=== PATIENT | female | born 1955 | race African-American/Black ===

== ENCOUNTER 2021-06-05 13:19 | Outpatient (REF) | payer OTHER, SELFPAY | END 2021-06-05 13:20 | disposition home or self-care (01) | LOC: HO.LAB 13:19 | PROVIDERS: Visit Provider Internal Medicine | DX: Z20.822 Contact with and (suspected) exposure to COVID-19 (principal) | CPT/HCPCS: C9803; U0003; U0005 ==

== ENCOUNTER 2021-06-13 04:35 | Inpatient (IN) | payer OTHER, SELFPAY ==
[2021-06-13] VITALS (10 sets, daily range): BP systolic 100–123; BP diastolic 54–68; PULSE 83–108; RESP 16–27; TEMP 37.2–38.1; O2SAT 88–94; BMI 40.1
--- NOTE | ~2021-06-13 | XR_ITS ---
EXAMINATION: XR CHEST CLINICAL INFORMATION: Covid. Hypoxemia. COMPARISON: 06/25/2021 TECHNIQUE: Frontal view of the chest was obtained. FINDINGS: Endotracheal tube terminates 4 cm above the gregorio. Enteric tube extends into the stomach. Right internal jugular central venous catheter terminates over the mid SVC. Left internal jugular central venous catheter terminates over the mid SVC. Cardiac leads overlie the chest. The lungs are well expanded. Diffuse bilateral airspace opacities are again noted, similar to prior. No pleural effusion or pneumothorax. The cardiomediastinal silhouette is unchanged. XR/XR chest 1V IMPRESSION: Endotracheal tube terminates 4 cm above the gregorio. Similar bilateral airspace opacities.
--- NOTE | ~2021-06-13 | XR_ITS ---
EXAMINATION: XR CHEST CLINICAL INFORMATION: Hypoxia. COMPARISON: 06/14/2021 portable chest, chest CTA dated 06/15/2021. TECHNIQUE: Frontal view of the chest was obtained. FINDINGS: Persistent bilateral patchy infiltrates are seen with mild interval decrease, especially in the lower lung millan. The heart and mediastinal structures are unremarkable. XR/XR chest 1V IMPRESSION: Mild interval improvement in bilateral patchy infiltrates. These remain nonspecific and could be cardiogenic however, an infectious/inflammatory process cannot be excluded. Correlate clinically.
--- NOTE | ~2021-06-13 | XR_ITS ---
EXAMINATION: XR CHEST CLINICAL INFORMATION: Hypoxia. COMPARISON: 06/23/2021 TECHNIQUE: Frontal view of the chest was obtained. FINDINGS: Endotracheal tube terminates 5 cm above the gregorio. Enteric tube extends into the stomach. Right and left internal jugular central venous catheters remain in place terminating over the mid SVC. Cardiac leads overlie the chest. The lungs are well expanded. Diffuse patchy bilateral airspace opacities are again noted. No significant pleural effusion. No pneumothorax. The cardiomediastinal silhouette is within normal limits. XR/XR chest 1V IMPRESSION: Endotracheal tube terminating 5 cm above the gregorio. Diffuse bilateral airspace opacities are similar to previous.
--- NOTE | ~2021-06-13 | XR_ITS ---
EXAMINATION: XR CHEST CLINICAL INFORMATION: Temperature spike COMPARISON: 06/24/2021 TECHNIQUE: Frontal view of the chest was obtained. FINDINGS: The endotracheal tube terminates 3 cm above the gregorio. Enteric tube extends into the stomach. Bilateral internal jugular central venous catheters terminate over the mid SVC. Cardiac leads overlie the chest. The lungs are well expanded. Bilateral airspace opacities are again noted with similar appearance to prior. No significant pleural effusion. No pneumothorax. The cardiomediastinal silhouette is within normal limits. No acute osseous abnormality. XR/XR chest 1V IMPRESSION: Endotracheal tube terminates 3 cm above the gregorio. Similar appearance of diffuse bilateral airspace opacities.
--- NOTE | ~2021-06-13 | XR_ITS ---
EXAMINATION: XR CHEST CLINICAL INFORMATION: Hypoxia. Covid. COMPARISON: 06/21/2021 TECHNIQUE: Frontal view of the chest was obtained. FINDINGS: The endotracheal tube terminates 4 cm above the gregorio. Enteric tube extends into the stomach. Cardiac leads overlie the chest. Right internal jugular central venous catheter terminates over the mid SVC. The lungs are well expanded. Patchy diffuse opacities are seen throughout both lungs. This is similar to prior. No pneumothorax. No pleural effusion. No pneumothorax. The cardiomediastinal silhouette is within normal limits. XR/XR chest 1V IMPRESSION: Endotracheal tube terminates 4 cm above the gregorio. Diffuse bilateral airspace opacities are similar to prior.
--- NOTE | ~2021-06-13 | XR_ITS ---
EXAMINATION: XR CHEST CLINICAL INFORMATION: New dialysis catheter. COMPARISON: Chest 06/22/2021 TECHNIQUE: Frontal view of the chest was obtained. FINDINGS: The lungs are hypoexpanded with bilateral patchy opacities consistent with infiltrates. Right jugular central catheter in mid SVC, enteric tube tip in the stomach and endotracheal tube 4.5 cm above the gregorio is stable. Heart size and pulmonary vascularity is normal. There is mild spondylosis of dorsal spine. No lytic process. XR/XR chest 1V IMPRESSION: Diffuse bilateral patchy airspace disease. Support lines and catheters are stable.
--- NOTE | ~2021-06-13 | XR_ITS ---
EXAMINATION: XR CHEST CLINICAL INFORMATION: Status post intubation. COMPARISON: 06/20/2021 portable chest. TECHNIQUE: Frontal view of the chest was obtained. FINDINGS: Endotracheal tube with tip terminating approximately 4 cm proximal to gregorio. Right internal jugular catheter with tip terminating in the superior vena cava. Nasogastric tube with tip not included on the study, but seen below the left hemidiaphragm. There has been mild interval increase in bilateral diffuse patchy infiltrates. The heart and mediastinal structures are unremarkable. XR/XR chest 1V IMPRESSION: 1. Endotracheal tube with tip approximately 4.0 cm proximal to gregorio. 2. Mild interval increase in bilateral diffuse patchy infiltrates.
--- NOTE | ~2021-06-13 | CT_ITS ---
EXAMINATION: CT ANGIOGRAM OF THE CHEST WITH AND WITHOUT CONTRAST (CT PULMONARY ANGIOGRAM FOR PE) CLINICAL INFORMATION: Reason for Exam Hypoxic resp Failure Covid COMPARISON: Chest x-ray 06/14/2021 TECHNIQUE: Prior to contrast administration, noncontrast localization images were obtained. Subsequently, multidetector volumetric imaging was performed from the thoracic inlet to below the diaphragms following the administration of 65 mL Omnipaque 350 intravenous contrast. No contrast reaction reported Sagittal, coronal, and MIP oblique sagittal reformatted images were obtained on the CT workstation, uploaded to PACS, and reviewed. This CT examination was performed using dose optimization techniques as appropriate, variously including the following: *Automated exposure control *Adjustment of mA and/or kV according to patient size (this includes techniques or standardized protocols for targeted exams where dose is matched to indication/reason for exam; i.e. extremities or head) *Use of iterative reconstruction technique Total exam dose-length product 265 mGy-cm FINDINGS: QUALITY OF STUDY/CONTRAST BOLUS: Suboptimal. PULMONARY ARTERIES: No definite central or segmental pulmonary emboli. Limited evaluation of the distal segmental and subsegmental emboli due to respiratory motion artifact. THORACIC AORTA: No aneurysm or dissection. 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 LUNG: There is extensive groundglass opacity and denser consolidation bilaterally; this involves the entire lung parenchyma with a few scattered patchy regions of sparing of the lung apices and bases. PLEURA: No pleural effusion or pneumothorax. MEDIASTINUM: The visualized thyroid gland is unremarkable. No discrete mediastinal lymphadenopathy is seen. Cardiac size is within normal limits; no pericardial effusion. No evidence of septal bowing or right heart strain. CHEST WALL/AXILLA: No axillary or internal mammary lymphadenopathy. OSSEOUS STRUCTURES: Degenerative changes are noted in the spine. UPPER ABDOMEN: Unremarkable. No reflux of contrast into the hepatic veins to suggest elevated right heart pressures. CT/CT angio chest PE protocol IMPRESSION: 1. No pulmonary embolus identified, though assessment of the distal vasculature is significantly limited. 2. Extensive groundglass opacity and consolidations bilaterally, which may be secondary to infection, edema, or ARDS. VTE: negative
--- NOTE | ~2021-06-13 | XR_ITS ---
EXAMINATION: XR CHEST CLINICAL INFORMATION: SOB. COMPARISON: None TECHNIQUE: Frontal view of the chest was obtained. FINDINGS: The lungs are hypoexpanded with patchy opacities seen scattered throughout both lungs. Heart size and vascularity is normal. No gross bony abnormality seen. XR/XR chest 1V IMPRESSION: Bilateral patchy infiltrates.
--- NOTE | ~2021-06-13 | XR_ITS ---
EXAMINATION: XR CHEST CLINICAL INFORMATION: Shortness of breath COMPARISON: None TECHNIQUE: Frontal view of the chest was obtained. FINDINGS: The lungs are hypoinflated. There are patchy regions of opacity in the mid to lower lungs. No evidence of pneumothorax or significant pleural effusion. The cardiomediastinal contour is unremarkable. No acute osseous findings are seen. XR/XR chest 1V IMPRESSION: Low lung volumes with patchy regions of bibasilar opacity. While some of this may be secondary to atelectasis, this can also be seen with multifocal pneumonia.
--- NOTE | 2021-06-13 04:45 | PC.NURSE ---
during triage pt noted to be short of breath/increased work of breathing and expiratory wheezing. sitting on edge of bed. 02 sat 91% on room air. provider notified respiratory paged to bedside.
[2021-06-13] MEDS: Acetaminophen 325 MG TABLET PO (05:12)
[2021-06-13] MEDS: Acetaminophen 325 MG TABLET 650 MG PO ×2 (05:12→21:21)
[2021-06-13] MEDS: Albuterol Sulfate (0.083%) 2.5 MG/3 ML VIAL.NEB 5 MG INHALE (05:12)
--- NOTE | 2021-06-13 05:15 | PC.NURSE ---
respiratory at bedside for nebulizer treatment pt placed on 2L NC by RT 02 sat 94% on 2L NC
[2021-06-13 05:16] LABS: COVID-19 Test Positive (Negative); IDNOW Serial# 9DD0AD1C
--- NOTE | 2021-06-13 06:32 | ECG_ITS ---
Test Reason : UPPER RESP Blood Pressure : / mmHG Vent. Rate : 095 BPM Atrial Rate : 095 BPM P-R Int : 142 ms QRS Dur : 096 ms QT Int : 346 ms P-R-T Axes : 042 019 012 degrees QTc Int : 434 ms Normal sinus rhythm Possible Left atrial enlargement Borderline ECG No previous ECGs available Referred By: Miguel Ro Electronically Signed By:DIYA PAGAN
--- NOTE | 2021-06-13 06:36 | ED.GENADULT ---
HPI - General Adult General Chief complaint: Upper Respiratory Symptoms Stated complaint: Covid like Time Seen by Provider: 06/13/21 05:05 Source: patient Mode of arrival: ambulatory Limitations: no limitations History of Present Illness HPI narrative: 66-year-old female who presents emergency department for evaluation of fever, chills, cough, headache, fatigue, diarrhea, body aches x1 week. The patient states that she was not vaccinated against COVID-19. She states that her 15-year-old granddaughter is positive for COVID-19. Patient states that she has been sick for about 1 week with her symptoms getting worse over the past 1-2 days. She states that she has severe dyspnea on exertion and can only walk about 10 ft before getting fatigued and winded. She states that she has a cough which is productive and occasionally she notices dark streaks in her sputum which she believes is blood. She states that she has had fever daily and shaking chills. She has had multiple episodes of loose diarrheal stool per day. She states that she has diffuse body aches. She feels fatigued and is sleeping more than usual. She states that her symptoms got worse this morning therefore she came to emergency department for evaluation. Related Data Allergies Allergy/AdvReac Type Severity Reaction Status Date / Time No Known Allergies Allergy Verified 06/13/21 05:05 Review of Systems Review of Systems: Yes all other systems are reviewed and are negative [facility] Past Medical History [facility] Narrative: Past medical history: Diabetes mellitus, hypertension, diverticulitis. Past surgical history: Bilateral carpal tunnel release, cervical disc surgery with fusion. Social history she denies tobacco use, she states that she is a former smoker when she was very young has not smoked in many years. She denies alcohol use. She denies drug use. Social History Social History Advance Directives: No Advance Directives Information Provided: No Physical Exam Vital Signs: Vital Signs: Last Vital Signs Temp 100.6 F H 06/13/21 04:40 Pulse 93 06/13/21 07:51 Resp 26 H 06/13/21 07:51 BP 100/68 06/13/21 04:40 Pulse Ox 94 06/13/21 07:51 Body Mass Index 40.1 Const: Other: Very pleasant and cooperative female patient, she is able to answer all questions, she speaks in full sentences HENMT: Head: Yes normal to inspection, Yes normocephalic and Yes atraumatic Ears: external ears normal General nose exam: Normal external nose present Face and sinus: Yes normal facial exam Mouth: Normal oral and palatal mucosa present Throat: Yes posterior oropharynx normal Eyes: General: appearance normal, both eyes and all related structures Pupils: Equal, round and reactive pupils present Neck: Neck: Yes normal visual inspection, Yes no lymphadenopathy, Yes trachea midline and Yes supple Chest: Chest palpation & inspection: normal inspection of the chest and normal palpation of entire chest wall Resp: Effort & Inspection: normal respiratory effort and able to speak in complete sentences Auscultation: rhonchi (Diffuse) and wheezes (Diffuse) Cardio: Rate: tachycardic Rhythm: regular rhythm Heart sounds: S1 normal heart sound present, S2 normal heart sound present and no murmurs GI: Inspection: Yes obesity Palpation (GI): Soft to palpation, nontender and no guarding Auscultation: normal bowel sounds : General: Yes no CVA tenderness Back/Spine/Pelvis: Back: no CVA tenderness Skin: General skin exam: no rashes or lesions noted Neuro: Cranial nerves: Yes CN's II-XII intact bilaterally and Yes Equal, round and reactive pupils present Cognition (Neuro): normal cognition Motor exam (neuro): 5/5 motor strength present throughout Extrem: General: Yes normal to inspection Psych: Appearance: grossly normal Speech and movement: Normal speech and movement present Affect: normal affect Attitude: cooperative Thought process: Normal thought process present Thought content: Normal thought content present Course Course Course Narrative: 66-year-old female who presents emergency department for evaluation 1 week viral-like symptoms which include with had fever, chills, chest pain, shortness of breath, dyspnea on exertion, diarrhea body aches and headache. The patient's granddaughter is positive for COVID-19 and the patient has had significant exposure to her granddaughter. The patient has not been vaccinated for COVID-19. Vital signs revealed that the patient was febrile with a temperature of a 100.6?. She is tachycardic with a pulse of 108. The patient's O2 saturation on room air was 88% and on 2 L her O2 saturation went up to 92-94%. The patient's COVID-19 test is positive. Patient's chest x-ray is consistent with multi lobar interstitial pneumonia. I did order a laboratory evaluation to include CBC, CMP, lipase, lactic acid, blood cultures x2, LDH, CRP, procalcitonin , D-dimer, procalcitonin, troponin and urinalysis. Blood cultures x2 will be obtained. The patient was ordered to get dexamethasone 6 mg IV. She is also ordered to get ceftriaxone 1 g IV and azithromycin 500 mg IV. 0815: Laboratory evaluation: CBC was normal. D-dimer was elevated at 524. Comprehensive metabolic panel revealed a low bicarb of 18, elevated BUN and creatinine of 29 and 2.0, elevated glucose of 239, elevated ferritin 1233, elevated AST and ALT of 4837, elevated LDH of 295, elevated CRP of 8.2 . I did discuss the patient's presentation with the covering hospitalist, Dr. Marah Cabrales and the patient will be admitted to the hospitalist service. We did discuss ordering a CT pulmonary angiogram PE protocol to rule out pulmonary embolism and to evaluate the extent of the patient's pneumonia. Medical Decision Making Lab Data Result diagrams: 06/13/21 07:05 06/13/21 07:05 Labs: Lab Results 06/13/21 06/13/21 06/13/21 Range/Units 04:59 07:05 07:05 WBC 4.9 (4.8-10.8) X10*3/uL RBC 5.11 (4.20-5.50) X10*6/uL Hgb 13.5 (12.0-16.0) g/dl Hct 39.9 (37-47) % MCV 78.1 L (80-98) fL MCH 26.4 L (27.0-33.0) pg MCHC 33.8 (31.0-35.0) g/dl RDW 15.2 (11.0-16.0) % Plt Count 169 (160-400) X10*3/uL MPV 9.6 (9.4-12.3) fL Immature Gran % (Auto) 0.4 (0.0-0.4) % Neut % (Auto) 80.5 H (45-73) % Lymph % (Auto) 13.8 L (20-40) % [place] % (Auto) 5.3 (2-11) % Eos % (Auto) 0.0 (0-4) % Baso % (Auto) 0.0 (0-2) % Lymph # (Auto) 0.7 L (1.2-4.9) X10*3/uL [place] # (Auto) 0.3 (0.1-1.2) X10*3/uL Eos # (Auto) 0.0 (0.0-0.4) X10*3/uL Baso # (Auto) 0.0 (0.0-0.2) X10*3/uL Abs Immat Gran (auto) 0.02 (0.00-0.03) X10*3/uL Absolute Neuts (auto) 4.0 (2.0-8.3) X10*3/uL Absolute Nucleated RBC 0.000 (0.0-0.012) X10*3/uL Nucleated RBC % (auto) 0.0 (0.0-0.2) /100WBC D-Dimer NG/ML Sodium 137 (135-145) mmol/L Potassium 3.4 (3.3-5.1) mmol/L Chloride 104 (96-108) mmol/L Carbon Dioxide 18 L (22-29) mmol/L Anion Gap 18 (12-20) BUN 29 H (9-16) mg/dL Creatinine 2.01 H (0.5-1.4) mg/dL Estim Creat Clear Calc 38.2 Estimated GFR 25 Random Glucose 239 H (60-115) mg/dL Lactic Acid (0.5-2.0) mmol/L Calcium 8.8 (8.4-10.2) mg/dL Ferritin 1233 H (10-250) ng/mL Total Bilirubin 0.5 (0.0-1.0) mg/dL AST 48 H (5-31) U/L ALT 37 H (0-31) U/L Alkaline Phosphatase 66 (39-117) U/L Lactate Dehydrogenase 295 H (122-220) U/L Troponin I High Sens (<3.5-17.0) ng/L C-Reactive Protein 8.28 H (< or = 0.50) mg/dL B-Natriuretic Peptide (<100) pg/mL Total Protein 7.8 (6.5-8.0) g/dL Albumin 4.3 (3.5-5.0) g/dL Lipase 66 (8-78) U/L COVID-19 ([facility]) Positive A (Negative) COVID-19 Clin Com See Note 06/13/21 06/13/21 06/13/21 Range/Units 07:05 07:05 07:05 WBC (4.8-10.8) X10*3/uL RBC (4.20-5.50) X10*6/uL Hgb (12.0-16.0) g/dl Hct (37-47) % MCV (80-98) fL MCH (27.0-33.0) pg MCHC (31.0-35.0) g/dl RDW (11.0-16.0) % Plt Count (160-400) X10*3/uL MPV (9.4-12.3) fL Immature Gran % (Auto) (0.0-0.4) % Neut % (Auto) (45-73) % Lymph % (Auto) (20-40) % [place] % (Auto) (2-11) % Eos % (Auto) (0-4) % Baso % (Auto) (0-2) % Lymph # (Auto) (1.2-4.9) X10*3/uL [place] # (Auto) (0.1-1.2) X10*3/uL Eos # (Auto) (0.0-0.4) X10*3/uL Baso # (Auto) (0.0-0.2) X10*3/uL Abs Immat Gran (auto) (0.00-0.03) X10*3/uL Absolute Neuts (auto) (2.0-8.3) X10*3/uL Absolute Nucleated RBC (0.0-0.012) X10*3/uL Nucleated RBC % (auto) (0.0-0.2) /100WBC D-Dimer 524 NG/ML Sodium (135-145) mmol/L Potassium (3.3-5.1) mmol/L Chloride (96-108) mmol/L Carbon Dioxide (22-29) mmol/L Anion Gap (12-20) BUN (9-16) mg/dL Creatinine (0.5-1.4) mg/dL Estim Creat Clear Calc Estimated GFR Random Glucose (60-115) mg/dL Lactic Acid 1.2 (0.5-2.0) mmol/L Calcium (8.4-10.2) mg/dL Ferritin (10-250) ng/mL Total Bilirubin (0.0-1.0) mg/dL AST (5-31) U/L ALT (0-31) U/L Alkaline Phosphatase (39-117) U/L Lactate Dehydrogenase (122-220) U/L Troponin I High Sens 9.7 (<3.5-17.0) ng/L C-Reactive Protein (< or = 0.50) mg/dL B-Natriuretic Peptide < 10 (<100) pg/mL Total Protein (6.5-8.0) g/dL Albumin (3.5-5.0) g/dL Lipase (8-78) U/L COVID-19 ([facility]) (Negative) COVID-19 Clin Com Critical Care Time Critical Care Time Critical Care Time: Yes Total Critical Care Time: 50 Attestation: Critical Care: The patient was critically ill with a high probability of imminent or life threatening deterioration. I spent greater than 30 minutes of discontinuous time evaluating the patient,delivering critical care at the bedside, discussing and evaluating pertinent data with consultants. Critical care time does not include time spent performing separately billable procedures or teaching. Total time spent performing critical care was 50 minutes. Discharge Plan Discharge Clinical Impression: Pneumonia due to 2019 novel coronavirus, Hypoxia Patient Disposition: Admitted As Inpatient
[2021-06-13 07:11] LABS: MANUAL DIFF FLAG NO
[2021-06-13] MEDS: 0.9 % Sodium Chloride 1,000 ML 999 ML IV (07:11)
[2021-06-13 07:12] LABS: Hematocrit 39.9 % (37-47); Hemoglobin 13.5 g/dl (12.0-16.0); Imm Gran Abs Auto 0.02 X10*3/uL (0.00-0.03); Imm Gran Pct Auto 0.4 % (0.0-0.4); Lymphocytes Absolute Auto 0.7 X10*3/uL (1.2-4.9); Lymphocytes Percent Auto 13.8 % (20-40); Mean Corpuscular HGB Conc 33.8 g/dl (31.0-35.0); Mean Corpuscular Hemoglobin 26.4 pg (27.0-33.0); Mean Corpuscular Volume 78.1 fL (80-98); Mean Platelet Volume 9.6 fL (9.4-12.3); Monocytes Absolute Auto 0.3 X10*3/uL (0.1-1.2); Monocytes Percent Auto 5.3 % (2-11); Neutrophils Percent Auto 80.5 % (45-73); Platelet Count 169 X10*3/uL (160-400); Red Blood Count 5.11 X10*6/uL (4.20-5.50); Red Cell Distribution Width 15.2 % (11.0-16.0); White Blood Count 4.9 X10*3/uL (4.8-10.8)
[2021-06-13 07:23] LABS: Lactic Acid 1.2 mmol/L (0.5-2.0)
[2021-06-13 07:24] LABS: D Dimer 524 NG/ML
[2021-06-13 07:28] LABS: Alanine Aminotransferase 37 U/L (0-31); Albumin Level 4.3 g/dL (3.5-5.0); Alkaline Phosphatase 66 U/L (39-117); Anion Gap 18 (12-20); Aspartate Amino Transferase 48 U/L (5-31); Bilirubin Total 0.5 mg/dL (0.0-1.0); Blood Urea Nitrogen 29 mg/dL (9-16); C Reactive Protein 8.28 mg/dL (< or = 0.50); Calcium 8.8 mg/dL (8.4-10.2); Carbon Dioxide 18 mmol/L (22-29); Chloride 104 mmol/L (96-108); Creatinine Clr Calc Pharmacy 38.2; Estimated Glomerular Filt Rate 25; Glucose Random 239 mg/dL (60-115); Lactate Dehydrogenase 295 U/L (122-220); Lipase 66 U/L (8-78); Potassium 3.4 mmol/L (3.3-5.1); Sodium 137 mmol/L (135-145); Total Protein 7.8 g/dL (6.5-8.0)
[2021-06-13 07:35] LABS: B Type Natriuretic Peptide < 10 pg/mL (<100); Troponin-I High Sensitivity 9.7 ng/L (<3.5-17.0)
[2021-06-13] MEDS: dexAMETHasone sod phosphate 4 MG/ML VIAL 6 MG IVPUSH (07:46)
[2021-06-13] MEDS: cefTRIAXone sodium 1 GM in 0.9 % Sodium Chloride 50 ML IV ×2 (07:46→17:52)
[2021-06-13 07:49] LABS: Ferritin 1233 ng/mL (10-250)
[2021-06-13] MEDS: Azithromycin 500 MG in 0.9 % Sodium Chloride 250 ML 125 MG IV (08:36)
[2021-06-13 09:04] LABS: Procalcitonin 0.36 ng/mL
--- NOTE | 2021-06-13 11:18 | PM.IMHP ---
History of Present Illness Date of Service: 06/13/21 [facility] Chief Complaint: Shortness of breath HPI narrative: 66-year-old female who presents emergency department for evaluation of fever, chills, cough, headache, fatigue, diarrhea, body aches x1 week.? The patient states that she was not vaccinated against COVID-19.? She states that her 15-year-old granddaughter is positive for COVID-19.? Patient states that she has been sick for about 1 week with her symptoms getting worse over the past 1-2 days.? She states that she has severe dyspnea on exertion and can only walk about 10 ft before getting fatigued and winded.? She states that she has a cough which is productive and occasionally she notices dark streaks in her sputum which she believes is blood.? She states that she has had fever daily and shaking chills.? She has had multiple episodes of loose diarrheal stool per day.? She states that she has diffuse body aches.? She feels fatigued and is sleeping more than usual.? She states that her symptoms got worse this morning therefore she came to emergency department for evaluation. Review of Systems Review of Systems: Gen: +fever Resp: +sob, + cough CV: no chest, no PATRICIO, no leg edema GI: No n/v, no abd pain Neuro: No confusion Yes all other systems are reviewed and are negative [facility] Medical History Diabetes HTN (hypertension) Family History Sister Diabetes Pertinent family history: see above HTN in fmaily Social History Household Members: Family Housing: House Patient Tobacco Use Status: Never used Tobacco Use of substances other than those prescribed or required for medical reasons: No Currently Displaying Signs/Symptoms of Drug Intoxication Withdrawal: No Have you been hit, kicked, punched, or otherwise hurt by someone within the past year? If so, by whom?: No Do you feel safe in your current relationship?: Yes Is there a partner from a previous relationship who is making you feel unsafe now?: No Advance Directives: No Advance Directives Information Provided: No Do you have thoughts of harming others: None Do you have a plan to hurt others: No Plan Recently lost weight without trying: No Eating poorly because of decreased appetite: No Nutrition Risks: No Nutritional Risk service: No Current occupational status: retired Manager[employer] Allergies Allergy/AdvReac Type Severity Reaction Status Date / Time No Known Allergies Allergy Verified 06/13/21 05:05 Active Medications: Current Medications Ceftriaxone Sodium 1 gm/ (Sodium Chloride) 50 mls @ 100 mls/hr IV Q12H BERNARD Last Admin: 06/13/21 07:46 Dose: 100 mls/hr Documented by: Pharmacy Consult (Consult Rx Perform Med Rec) 1 each MISCELLANE ONCE PRN PRN Reason: Consult order Home Medications Medication Instructions Recorded Confirmed Last Taken Type Januvia 100 mg PO DAILY 06/13/21 06/13/21 06/12/21 History glipizide 5 mg PO BID 06/13/21 06/13/21 06/12/21 History hydrochlorothiazide 25 mg PO DAILY 06/13/21 06/13/21 06/12/21 History methocarbamol 500 mg PO Q6-8H PRN 06/13/21 06/13/21 Unknown History omeprazole 20 mg PO DAILY 06/13/21 06/13/21 06/12/21 History rosuvastatin 10 mg PO DAILY 06/13/21 06/13/21 06/12/21 History Physical Exam Vital Signs and Narrative: Vital Signs: Last Vital Signs Temp 99.6 F 06/13/21 08:37 Pulse 90 06/13/21 08:37 Resp 27 H 06/13/21 08:37 BP 101/59 L 06/13/21 08:37 Pulse Ox 93 06/13/21 08:37 Body Mass Index 40.1 Constitutional Awake and Alert, No apparent distress HEENT--Anciteric Neck Supple, No lymphadenopathy Cardiovascular RRR, No M/R/G, S1 S2, No S3 S4, No pedal edema, Respiratory dimished breath sounds tiffani No respiratory distress, normal respiratory effort Gastrointestinal Non tender, Non-distended Skin No rash Neurological Alert & oriented x3 Psychological Appropriate affect Results Labs CBC and Chem 7: 06/19/21 05:46 06/19/21 05:46 Labs: Laboratory Results - last 24 hr 06/13/21 06/13/21 06/13/21 04:59 07:05 07:05 MCV MCH MCHC RDW Plt Count MPV Immature Gran % (Auto) Neut % (Auto) Lymph % (Auto) [place] % (Auto) Eos % (Auto) Baso % (Auto) Lymph # (Auto) [place] # (Auto) Eos # (Auto) Baso # (Auto) Abs Immat Gran (auto) Absolute Neuts (auto) Absolute Nucleated RBC Nucleated RBC % (auto) D-Dimer Anion Gap 18 Estim Creat Clear Calc 38.2 Estimated GFR 25 Random Glucose 239 H Lactic Acid Calcium 8.8 Ferritin 1233 H Total Bilirubin 0.5 AST 48 H ALT 37 H Alkaline Phosphatase 66 Lactate Dehydrogenase 295 H Troponin I High Sens C-Reactive Protein 8.28 H B-Natriuretic Peptide Total Protein 7.8 Albumin 4.3 Lipase 66 Procalcitonin 0.36 COVID-19 ([facility]) Positive A COVID-19 Clin Com See Note 06/13/21 06/13/21 06/13/21 07:05 07:05 07:05 MCV 78.1 L MCH 26.4 L MCHC 33.8 RDW 15.2 Plt Count 169 MPV 9.6 Immature Gran % (Auto) 0.4 Neut % (Auto) 80.5 H Lymph % (Auto) 13.8 L [place] % (Auto) 5.3 Eos % (Auto) 0.0 Baso % (Auto) 0.0 Lymph # (Auto) 0.7 L [place] # (Auto) 0.3 Eos # (Auto) 0.0 Baso # (Auto) 0.0 Abs Immat Gran (auto) 0.02 Absolute Neuts (auto) 4.0 Absolute Nucleated RBC 0.000 Nucleated RBC % (auto) 0.0 D-Dimer 524 Anion Gap Estim Creat Clear Calc Estimated GFR Random Glucose Lactic Acid 1.2 Calcium Ferritin Total Bilirubin AST ALT Alkaline Phosphatase Lactate Dehydrogenase Troponin I High Sens C-Reactive Protein B-Natriuretic Peptide Total Protein Albumin Lipase Procalcitonin COVID-19 ([facility]) COVID-19 Clin Com 06/13/21 07:05 MCV MCH MCHC RDW Plt Count MPV Immature Gran % (Auto) Neut % (Auto) Lymph % (Auto) [place] % (Auto) Eos % (Auto) Baso % (Auto) Lymph # (Auto) [place] # (Auto) Eos # (Auto) Baso # (Auto) Abs Immat Gran (auto) Absolute Neuts (auto) Absolute Nucleated RBC Nucleated RBC % (auto) D-Dimer Anion Gap Estim Creat Clear Calc Estimated GFR Random Glucose Lactic Acid Calcium Ferritin Total Bilirubin AST ALT Alkaline Phosphatase Lactate Dehydrogenase Troponin I High Sens 9.7 C-Reactive Protein B-Natriuretic Peptide < 10 Total Protein Albumin Lipase Procalcitonin COVID-19 ([facility]) COVID-19 Clin Com Imaging Radiologist's Impressions: Impressions Chest X-Ray 06/13/21 05:29 IMPRESSION: Low lung volumes with patchy regions of bibasilar opacity. While some of this may be secondary to atelectasis, this can also be seen with multifocal pneumonia. Assessment and Plan (1) Pneumonia due to 2019 novel coronavirus: Status: Acute (2) Hypoxia: Status: Acute (3) HTN (hypertension): Status: Acute (4) Diabetes: Status: Acute 66-year-old female morbidly obese with hypertension unclear whether she is taking any medication or not, diabetes a does not seem to be controlled. She is not vaccinated with covid. She presents with shortness of breath, cough and fever body aches, she has been exposed with covid from her children who got from school. She was hypoxic on presentation and is better with oxygen. She has tested positive for covid. 1/ Acute hypoxic respiratory failure due covid pneumnia, no sepsis -She is out of window for remdesevir and also LFTS are elevated -Treated with IV Dexamethasone -IV Doxy for fiew days -ID consult -oxguen with goal of O2 > 90% -Follow inflamatory markers (CRP, LDH, Ferritin,--all high) 1/Diabetes--uncontrolled, and it doesn't appear she's on med (not med in any pharmacy) -Add sliding scle insulin -Metformin 500 bid -Check A1C 3/ She says she has HTN but is no med and BP is within normal, monitor 4/ obesity obviously affecting above health issues, weight loss advised. 5/Elevated LFTs--likely from covid, follow, if not improving US 6/ renal failure Cr 2.01, no prior here (not record at [facility]), likely CKD rather KESHAV, will hydrate gently and repeat tomorrow. DVT prophylaxis with Xarelto Quality Stroke Does the patient have a stroke diagnosis?: No VTE Prior VTE?: No VTE Risk Level:: Medical - moderate - high VTE Device Contraindication: Treatment Not Indicated VTE Drug Contraindication: N/A - Med Ordered
[2021-06-13] MEDS: Famotidine 20 MG TABLET 40 MG PO ×2 (11:44→20:46)
[2021-06-13] MEDS: 0.9 % Sodium Chloride 1,000 ML 100 ML IVCONT (11:44)
[2021-06-13] MEDS: Albuterol Sulfate 90 MCG 8 GM INHALER 2 PUFF INHALE (11:59)
[2021-06-13] MEDS: guaiFENesin 100 MG/5 ML LIQUID PO ×2 (12:19→16:04)
[2021-06-13] MEDS: Rivaroxaban 10 MG TABLET PO (12:19)
[2021-06-13] MEDS: Doxycycline Hyclate 100 MG in 0.9 % Sodium Chloride 250 ML 166.67 MG IV ×2 (12:19→23:33)
[2021-06-13 12:22] LABS: Estimated Average Glucose 209 mg/dL; Hemoglobin A1c % 8.9 %
--- NOTE | 2021-06-13 15:11 | PC.NURSE ---
report given to im[facility] rn
[2021-06-13] MEDS: Insulin Lispro 100 UNIT/ML 3 ML VIAL SUBCUT ×2 (16:04→20:46)
[2021-06-13 16:05] LABS: Glucose, Whole Blood 318 mg/dL (60-115)
[2021-06-13 20:34] LABS: Glucose, Whole Blood 164 mg/dL (60-115)
[2021-06-13] MEDS: glipiZIDE 5 MG TABLET PO (20:46)
[2021-06-13] MEDS: 0.9 % Sodium Chloride Flush 3 ML SYRINGE IVFLUSH (20:46)
[2021-06-14] VITALS (10 sets, daily range): BP systolic 104–120; BP diastolic 50–58; PULSE 84–109; RESP 18–24; TEMP 36.7–39.1; O2SAT 69–96
[2021-06-14] MEDS: Acetaminophen 325 MG TABLET 650 MG PO ×2 (03:28→20:36)
[2021-06-14] MEDS: guaiFENesin 100 MG/5 ML LIQUID PO (03:28)
[2021-06-14] MEDS: Omeprazole 20 MG CAPSULE.DR PO (05:26)
[2021-06-14] MEDS: cefTRIAXone sodium 1 GM in 0.9 % Sodium Chloride 50 ML IV (05:26)
[2021-06-14 07:29] LABS: Glucose, Whole Blood 119 mg/dL (60-115)
[2021-06-14 07:45] LABS: Anion Gap 16 (12-20); Blood Urea Nitrogen 22 mg/dL (9-16); Calcium 8.4 mg/dL (8.4-10.2); Carbon Dioxide 21 mmol/L (22-29); Chloride 109 mmol/L (96-108); Creatinine Clr Calc Pharmacy 63.4; Estimated Glomerular Filt Rate 44; Glucose Random 119 mg/dL (60-115); Potassium 3.7 mmol/L (3.3-5.1); Sodium 142 mmol/L (135-145)
[2021-06-14] MEDS: 0.9 % Sodium Chloride Flush 3 ML SYRINGE IVFLUSH ×3 (09:47→20:28)
[2021-06-14] MEDS: Famotidine 20 MG TABLET 40 MG PO ×2 (09:50→20:28)
[2021-06-14] MEDS: glipiZIDE 5 MG TABLET PO ×2 (09:50→20:28)
[2021-06-14] MEDS: Rivaroxaban 10 MG TABLET PO (09:50)
[2021-06-14] MEDS: Atorvastatin Calcium 40 MG TABLET PO (09:51)
[2021-06-14] MEDS: hydroCHLOROthiazide 25 MG TABLET PO (09:51)
[2021-06-14 11:15] LABS: Glucose, Whole Blood 165 mg/dL (60-115)
[2021-06-14] MEDS: Insulin Lispro 100 UNIT/ML 3 ML VIAL SUBCUT ×3 (11:53→20:28)
[2021-06-14] MEDS: Doxycycline Hyclate 100 MG in 0.9 % Sodium Chloride 250 ML 166.67 MG IV (11:54)
--- NOTE | 2021-06-14 13:17 | MHC.CM.PN ---
Attempted to call both the patient in her room and her son as well. Neither answered. Will have to make another attempt later on. CM to follow.
--- NOTE | 2021-06-14 13:42 | P.PNIM_ITS ---
Subjective Subjective Date of Service: 06/14/21 Interval History: Doing poorly this morning. Breathing extremely labored requiring 100% non-rebreather (did not tolerate high-flow). Sats maintain when lying on side. Voices no cardiac complaints. Compliant with O2 therapies. Sats 92-94% on 100% non-rebreather Review of Systems Denies chest pain complains of shortness of breath at rest Denies nausea vomiting diarrhea Physical Exam Vital Signs: Vital Signs: Last Vital Signs Temp 98.8 F 06/14/21 11:19 Pulse 99 06/14/21 11:19 Resp 22 H 06/14/21 11:19 BP 104/52 L 06/14/21 11:19 Pulse Ox 96 06/14/21 11:19 Body Mass Index 40.1 Const: Other: Markedly dyspneic at rest tolerating 100% non-rebreather HENMT: Other: Membranes moist; oropharynx clear Neck: Neck: Yes normal visual inspection Resp: Other: Diminished all millan with fine crackles throughout Cardio: Other: No S4 positive S1-S2 without S3. Tachycardic no audible murmur GI: Other: Soft nontender nondistended with normoactive bowel sounds Neuro: Other: Age-appropriate nonfocal Extrem: General: Yes normal to inspection Objective Data Active Medications Acetaminophen (Acetaminophen 325 Mg Tablet) 650 mg PO Q6H PRN PRN Reason: Pain, Mild (Pain Scale 1-3) Last Admin: 06/14/21 03:28 Dose: 650 mg Documented by: MOE Atorvastatin Calcium (Atorvastatin Calcium 40 Mg Tablet) 40 mg PO DAILY [facility] Last Admin: 06/14/21 09:51 Dose: 40 mg Documented by: GLEN Cyclobenzaprine HCl (Cyclobenzaprine Hcl 10 Mg Tablet) 10 mg PO BID PRN PRN Reason: Muscle Spasm Famotidine (Famotidine 20 Mg Tablet) 40 mg PO BID [facility] Last Admin: 06/14/21 09:50 Dose: 40 mg Documented by: GLEN Glipizide (Glipizide 5 Mg Tablet) 5 mg PO BID [facility] Last Admin: 06/14/21 09:50 Dose: 5 mg Documented by: GLEN Guaifenesin (Guaifenesin 100 Mg/5 Ml Liquid) 5 ml PO Q6H PRN PRN Reason: Cough Last Admin: 06/14/21 03:28 Dose: 5 ml Documented by: MOE Hydrochlorothiazide (Hydrochlorothiazide 25 Mg Tablet) 25 mg PO DAILY [facility] Last Admin: 06/14/21 09:51 Dose: 25 mg Documented by: GLEN Ceftriaxone Sodium 1 gm/ (Sodium Chloride) 50 mls @ 100 mls/hr IV Q12H [facility] Last Infusion: 06/14/21 06:27 Dose: 0 mls/hr Documented by: MOE Doxycycline Hyclate 100 mg/ (Sodium Chloride) 250 mls @ 166.67 mls/hr IV Q12H [facility] Stop: 06/18/21 01:29 Last Infusion: 06/14/21 13:33 Dose: 0 mls/hr Documented by: GLEN Insulin Human Lispro (Insulin Lispro 100 Unit/Ml 3 Ml Vial) 0 unit SUBCUT QIDACHS [facility]; Protocol Last Admin: 06/14/21 11:53 Dose: 2 unit Documented by: GLEN Melatonin (Melatonin 3 Mg Tablet) 6 mg PO BEDTIME PRN PRN Reason: Insomnia Omeprazole (Omeprazole 20 Mg Capsule.) 20 mg PO DAILY@0630 [facility] Last Admin: 06/14/21 05:26 Dose: 20 mg Documented by: MOE Rivaroxaban (Rivaroxaban 10 Mg Tablet) 10 mg PO DAILY [facility] Last Admin: 06/14/21 09:50 Dose: 10 mg Documented by: GLEN Sodium Chloride (0.9 % Sodium Chloride Flush 3 Ml Syringe) 3 ml IVFLUSH QSHIFT [facility] Last Admin: 06/14/21 09:47 Dose: 3 ml Documented by: GLEN Labs CBC & Chem 7: 06/13/21 07:05 06/14/21 06:45 Labs: Laboratory Results - last 24 hr 06/13/21 06/13/21 06/14/21 15:53 20:21 06:45 Anion Gap 16 Estim Creat Clear Calc 63.4 Estimated GFR 44 POC Glucose 318 H 164 H Random Glucose 119 H Calcium 8.4 06/14/21 06/14/21 07:14 11:00 Anion Gap Estim Creat Clear Calc Estimated GFR POC Glucose 119 H 165 H Random Glucose Calcium Microbiology Microbiology Results: Microbiology 06/13/21 07:27 Blood Culture - Preliminary Blood - Venous No growth after 24 hours. 06/13/21 07:27 Blood Culture - Preliminary Blood - Venous No growth after 24 hours. Assessment and Plan (1) Pneumonia due to 2019 novel coronavirus: Status: Acute Assessment and Plan: 66-year-old female and admitted with COVID-19 and symptoms of shortness of breath. Over the course of the night her breathing has become more labored and she now requires 100% non-rebreather to maintain sats greater than 90%. She states she is most comfortable on her side and is able to maintain her sats 1/ Acute hypoxic respiratory failure due covid pneumnia.... Chest x-ray worsened -Treated with IV Dexamethasone -IV Doxy for fiew days -ID consult -oxguen with goal of O2 > 90% (100% non-rebreather) -Follow inflamatory markers (CRP, LDH, Ferritin,--all high) 1/Diabetes--uncontrolled -Add sliding scle insulin -Metformin 500 bid -Check A1C 2. Hypertension: No indication for treatment at this time 3.Elevated LFTs--likely from covid, follow, if not improving US 4. ARNLE: Return to baseline follow-up clinically DVT prophylaxis with Xarelto Quality Stroke Does the patient have a stroke diagnosis?: No VTE Prior VTE?: No VTE Risk Level:: Medical - moderate - high VTE Device Contraindication: Treatment Not Indicated VTE Drug Contraindication: N/A - Med Ordered
--- NOTE | 2021-06-14 14:30 | MHC.CM.PN ---
Attempt # 2 for interview: patient's room phone, patient's cell phone and son's listed number. All no answer. CM to follow.
[2021-06-14] MEDS: Cholecalciferol (Vitamin D3) 25 MCG TABLET 50 MCG PO (15:10)
[2021-06-14] MEDS: dexAMETHasone sod phosphate 4 MG/ML VIAL 6 MG IVPUSH (15:10)
[2021-06-14] MEDS: Famotidine/PF 20 MG/2 ML VIAL IVPUSH ×2 (15:10→20:28)
[2021-06-14] MEDS: Zinc Sulfate 220 MG CAPSULE PO (15:10)
[2021-06-14] MEDS: Ascorbic Acid 500 MG TABLET PO (15:10)
[2021-06-14] MEDS: Remdesivir 200 MG in 0.9 % Sodium Chloride 210 ML 105 MG IV (15:57)
[2021-06-14 16:33] LABS: Glucose, Whole Blood 180 mg/dL (60-115)
[2021-06-14 20:19] LABS: Glucose, Whole Blood 232 mg/dL (60-115)
[2021-06-15] VITALS (34 sets, daily range): BP systolic 90–118; BP diastolic 42–69; PULSE 10–115; RESP 17–42; TEMP 37.1–38.1; O2SAT 85–94; BMI 39.9
[2021-06-15] MEDS: Morphine Sulfate 2 MG/ML CARTRIDGE IVPUSH ×2 (00:30→03:09)
[2021-06-15] MEDS: ondansetron HCL 4 MG/2 ML VIAL IVPUSH (00:55)
--- NOTE | 2021-06-15 01:20 | PC.NURSE ---
Addendum entered by Ann Marie Hi RN 06/15/21 05:05: Pt desatting to 80, Dr. Beach and ICU PA notified. CPAP ordered, pt tolerating better. Satting 90-95% on CPAP. CT of lungs ordered, tolerated well. Pt transferred to ICU to be closely monitored. Report given to Laina THAKKAR. Original Note: Pt satting 84, briefly 90 but unable to sustain. RR 30. Currently on HF 60L 100% + NRB. Dr. Beach and ICU PA at bedside, ordered 2mg morphine IVP for work of breathing. Pond ordered to limit movement and hypoxia. ICU stated they will take the pt if she persists to sat in the low 80s. Will continue to monitor.
--- NOTE | 2021-06-15 03:36 | PM.EVENT ---
Event Note Date of Service: 06/15/21 Event Note: Patient was hypoxic for measured of the night satting in the very low 80s between 82-83%. This was on high-flow as well as non-rebreather. Evaluated by ICU team, patient given morphine for respiratory distress with no increase in her oxygenation. Patient was transferred to ICU for further management.
--- NOTE | 2021-06-15 03:42 | W.PM.CCCN ---
History of Present Illness Data of Consult Service Date: 06/15/21 Requesting physician: Sarai Beach Primary Care Provider: Unknown Physician HPI Reason for consult: Hypoxic Resp Failure in the setting of Covid 19 Thank you for allowing us to participate in the care of this patient. HPI: ?This 66 years old morbidly obese female with underlying history of hypertension, diabetes, GERD, medical noncompliance presented to the emergency room [id number] with multiple complaints including generalize malaise, fever, cough, weakness, chills, headache, diarrhea and body aches for approximately 1 week.? Patient was not vaccinated against COVID-19 and her daughter tested positive for it.? Patient's symptoms have worsened in the past 2 days, patient reports being short of breath with ambulation, has a nonproductive cough but at times she believes had some blood streaks in her sputum.? She also had some diarrhea and has been more tired than usual. In ?the ER workup, she had been febrile with temperature of a 100.6?, heart rate of 108, satting 91% on room air.? While in the hospital her T-max has been 102.4.? Her white count was 4.9, hemoglobin 13.5 hematocrit 39.9, platelets 169. At the time her renal function was elevated with BUN of 29 creatinine of 2.01, this has improved with hydration currently BUN 22, creatinine 1.21.? Electrolytes are otherwise normal.? Hemoglobin A1c is 8.9. ?Ferritin 1233, LDH 295, CRP of 8.28. ?D-dimer on admission was 524. While in the hospital, her T-max has been 102.4, has been mildly tachycardic with high as her rate of 109 never hypotensive but her O2 sat had started dropping approximately 24 hours ago to the lowest of 93% on nasal cannula and then was transferred to non-rebreather, subsequently intermittently to high-flow and ultimately transitioned to non-rebreather mask as she did not tolerate high-flow. ?She did have acute renal failure but improve with hydration.? The patient however is on diuretics and was started on glypizide, she was placed on steroids and doxycycline. I saw the patient twice today, after administering opioids and place a Pond catheter for approximately 3 hours, the patient appeared stable, she did not have significant work of breathing, no usage of accessory muscles, the patient did not appear to be tired and she was satting 91% with respiratory rate into the 20s, this however was short lived and she required close monitoring, given my concern of her quick near future deterioration, body habitus and multiple comorbidities, I think this patient is better served in the ICU.? Will place her on C-Pap for now and may require Bi-Pap.? I do not think she requires intubation now; however this may be inevitable in the near future.? I discussed this with Dr. Beach and Dr. Huggins who both agree. ROS:? Unable to obtain, patient is on BiPAP Past Medical History:? As above Past Surgical History:? None Family history: ?Sister has diabetes. Social History:? Lives at home with family, never smoked, does not drink alcohol, no history of drug use. CODE STATUS:? Full code Allergies: ?No known drug allergies Home Medications: ?Please see med rec PHYSICAL EXAM: VS: ?Blood pressure 118/62, heart rate 62, respirations 20, O2 sat 89% on BiPAP her 100% with settings of 10 5., temperature 98.7?. ? General:? Alert oriented x3 no acute distress.? Following all commands. ?Appears tired, no accessory muscle usage. ? Skin:? Intact, no lesions, edema, erythema, clubbing or cyanosis.? No ulcers. ? HEENT:? Head is normocephalic, atraumatic, pupils equal round reactive to light accommodation bilaterally.? Extraocular movements appear intact.? Buccal mucosa is moist, Neck is supple without lymphadenopathy. ? Cardiac:? Clear S1-S2, no murmurs rubs or gallops. ? Pulmonary:? Rhonchorous bilaterally and throughout, no wheezes or crackles ? Abdomen:? Protuberant, positive bowel sounds in all 4 quadrants.? Soft, nontender, no rebound or guarding.? Musculoskeletal:? Moving all 4 extremities upon request a major joints, there is no crepitus or tenderness.? The strength is 5/5 bilaterally and throughout all 4 extremities.? There is no leg edema , no calf tenderness , no leg asymmetry.? Gait not assessed at this point. ? Neurologic:? As above, cranial nerves 2-12 are grossly intact.? No focal deficits noted. ? Motor strength as above.? Vascular:? 2+ pulses upper and lower extremities distally. ? SIGNIFICANT LABORATORY DATA: As above REVIEW OF IMAGES: ER Chest x-ray IMPRESSION: Low lung volumes with patchy regions of bibasilar opacity. While some of this may be secondary to atelectasis, this can also be seen with multifocal pneumonia. Follow-up chest x-ray impression Bilateral patchy infiltrates. EKG REVIEW: ?Sinus rhythm 95 beats per minute, no ST elevations, no depressions.? QTC 434, no comparison. ASSESSMENT AND PLAN: 1. Acute hypoxic respiratory failure 2. COVID-19 infection with concern of developing ARDS 3. Uncontrolled diabetes type 2 with hemoglobin A1c of 8.9. 4. Essential hypertension 5. Morbid obesity 6. Medical noncompliance 7. Transaminitis due to above-mentioned infection 8. Resolved acute kidney injury 9. Bilateral patchy infiltrates likely COVID-19, developing ARDS, unlikely bacterial infection Transfer to ICU, Given the concern this patient has quickly deteriorated, I have volunteerrd to take this patient to the ICU.? The patient will be placed initially on CPAP which appears to tolerate ok; if needed BI-Pap with the hopes of avoiding intubation for now. Moprhine for work of breathing. Will order an ABG, repeat labs in the morning with inflammatory markers.? Monitor blood sugars.? Continue with Remdesivir, Steroids, Famotidine, Vit C and Zinc. Statin. ?Given the progression on the x-ray and affect she has COVID, I think she will be better off getting a CT of the chest with IV contrast, I will rule out the possibility of a PE. We may to switch her oral regimen to IV while the patient is on BiPAP.? GI PROPHYLAXIS: ?IV PPI DVT PROPHYLAXIS: ?on Xarelto if needed change to Sub Q Lovenox Critical care time used for critical evaluation of this patient, diagnosis, treatment and coordination of care, review her records and documentation TOTAL CRITICAL CARE TIME 120 MIN . Patient's care was discussed in detail with Dr. Huggins.? He is aware of all the above as well as the plan of care for this patient. [facility] Past Medical History Medical History Diabetes HTN (hypertension) Family History Family History Sister Diabetes Social History Social History Household Members: Family Housing: House Patient Tobacco Use Status: Never used Tobacco Use of substances other than those prescribed or required for medical reasons: No Currently Displaying Signs/Symptoms of Drug Intoxication Withdrawal: No Have you been hit, kicked, punched, or otherwise hurt by someone within the past year? If so, by whom?: No Do you feel safe in your current relationship?: Yes Is there a partner from a previous relationship who is making you feel unsafe now?: No Advance Directives: No Advance Directives Information Provided: No Do you have thoughts of harming others: None Do you have a plan to hurt others: No Plan Recently lost weight without trying: No Eating poorly because of decreased appetite: No Nutrition Risks: No Nutritional Risk service: No Current occupational status: retired Meds Allergies Allergy/AdvReac Type Severity Reaction Status Date / Time No Known Allergies Allergy Verified 06/13/21 05:05 Active Medications: Current Medications Acetaminophen (Acetaminophen 325 Mg Tablet) 650 mg PO Q6H PRN PRN Reason: Pain, Mild (Pain Scale 1-3) Last Admin: 06/14/21 20:36 Dose: 650 mg Documented by: Ascorbic Acid (Ascorbic Acid 500 Mg Tablet) 500 mg PO DAILY [facility] Last Admin: 06/14/21 15:10 Dose: 500 mg Documented by: Atorvastatin Calcium (Atorvastatin Calcium 40 Mg Tablet) 40 mg PO DAILY [facility] Last Admin: 06/14/21 09:51 Dose: 40 mg Documented by: Cyclobenzaprine HCl (Cyclobenzaprine Hcl 10 Mg Tablet) 10 mg PO BID PRN PRN Reason: Muscle Spasm Dexamethasone Sodium Phosphate (Dexamethasone Sod Phosphate 4 Mg/Ml Vial) 6 mg IVPUSH DAILY [facility] Last Admin: 06/14/21 15:10 Dose: 6 mg Documented by: Famotidine (Famotidine 20 Mg Tablet) 40 mg PO BID [facility] Last Admin: 06/14/21 20:28 Dose: 40 mg Documented by: Famotidine (Famotidine/Pf 20 Mg/2 Ml Vial) 20 mg IVPUSH BID [facility] Last Admin: 06/14/21 20:28 Dose: 20 mg Documented by: Glipizide (Glipizide 5 Mg Tablet) 5 mg PO BID [facility] Last Admin: 06/14/21 20:28 Dose: 5 mg Documented by: Hydrochlorothiazide (Hydrochlorothiazide 25 Mg Tablet) 25 mg PO DAILY [facility] Last Admin: 06/14/21 09:51 Dose: 25 mg Documented by: Remdesivir 100 mg/ Sodium (Chloride) 230 mls @ 115 mls/hr IV Q24H [facility] Stop: 06/18/21 17:59 Insulin Human Lispro (Insulin Lispro 100 Unit/Ml 3 Ml Vial) 0 unit SUBCUT QIDACHS [facility]; Protocol Last Admin: 06/14/21 20:28 Dose: 4 unit Documented by: Melatonin (Melatonin 3 Mg Tablet) 6 mg PO BEDTIME PRN PRN Reason: Insomnia Morphine Sulfate (Morphine Sulfate 2 Mg/Ml Cartridge) 2 mg IVPUSH Q2H PRN; Protocol PRN Reason: Shortness of Breath Last Admin: 06/15/21 03:09 Dose: 2 mg Documented by: Omeprazole (Omeprazole 20 Mg Capsule.) 20 mg PO DAILY@0630 [facility] Last Admin: 06/14/21 05:26 Dose: 20 mg Documented by: Ondansetron HCl (Ondansetron Hcl 4 Mg/2 Ml Vial) 4 mg IVPUSH Q8H PRN PRN Reason: Nausea and Vomiting Last Admin: 06/15/21 00:55 Dose: 4 mg Documented by: Rivaroxaban (Rivaroxaban 10 Mg Tablet) 10 mg PO DAILY [facility] Last Admin: 06/14/21 09:50 Dose: 10 mg Documented by: Sodium Chloride (0.9 % Sodium Chloride Flush 3 Ml Syringe) [facility] Last Admin: 06/14/21 20:28 Dose: 3 ml Documented by: Vitamin D (Cholecalciferol (Vitamin D3) 25 Mcg Tablet) 50 mcg PO DAILY [facility] Last Admin: 06/14/21 15:10 Dose: 50 mcg Documented by: Zinc Sulfate (Zinc Sulfate 220 Mg Capsule) 220 mg PO DAILY [facility] Last Admin: 06/14/21 15:10 Dose: 220 mg Documented by: Home Medications Medication Instructions Recorded Confirmed Last Taken Type Januvia 100 mg PO DAILY 06/13/21 06/13/21 06/12/21 History glipizide 5 mg PO BID 06/13/21 06/13/21 06/12/21 History hydrochlorothiazide 25 mg PO DAILY 06/13/21 06/13/21 06/12/21 History methocarbamol 500 mg PO Q6-8H PRN 06/13/21 06/13/21 Unknown History omeprazole 20 mg PO DAILY 06/13/21 06/13/21 06/12/21 History rosuvastatin 10 mg PO DAILY 06/13/21 06/13/21 06/12/21 History Physical Exam Vital Signs: Vital Signs: Last Vital Signs Temp 98.1 F 06/14/21 23:02 Pulse 91 06/14/21 23:02 Resp 33 H 06/15/21 03:30 BP 110/53 L 06/14/21 23:02 Pulse Ox 83 L 06/14/21 23:02 Body Mass Index 40.1 Results Labs CBC & Chem 7: 06/17/21 06:00 06/17/21 06:00 Labs: BMP 06/14/21 06:45 Sodium 142 Potassium 3.7 Chloride 109 H Carbon Dioxide 21 L BUN 22 H Creatinine 1.21 Calcium 8.4 Microbiology Microbiology Results: Microbiology 06/13/21 07:27 Blood - Venous Blood Culture - Preliminary No growth after 24 hours. 06/13/21 07:27 Blood - Venous Blood Culture - Preliminary No growth after 24 hours.
[2021-06-15 04:07] LABS: ABG Refer to POC result
[2021-06-15 04:08] LABS: ABG Base Excess -4.1 mmol/L; ABG HCO3 19 mmol/L (22-26); ABG pCO2 32 mmHg (32-45); ABG pCO2 TC 32 mmHg (32-45); ABG pH 7.39 (7.35-7.45); ABG pH TC 7.39 (7.35-7.45); ABG pO2 63 mmHg (83-108); ABG pO2 TC 64 (83-108)
[2021-06-15] MEDS: iohexoL 350 MG/ML 100 ML INFUS..BTL 65 ML IV (05:00)
[2021-06-15] MEDS: Morphine Sulfate 2 MG/ML CARTRIDGE 4 MG IVPUSH ×2 (05:15→06:34)
[2021-06-15 05:25] LABS: MANUAL DIFF FLAG NO
[2021-06-15 05:27] LABS: Hematocrit 36.1 % (37-47); Hemoglobin 11.8 g/dl (12.0-16.0); Imm Gran Abs Auto 0.01 X10*3/uL (0.00-0.03); Imm Gran Pct Auto 0.2 % (0.0-0.4); Lymphocytes Absolute Auto 0.8 X10*3/uL (1.2-4.9); Lymphocytes Percent Auto 17.6 % (20-40); Mean Corpuscular HGB Conc 32.7 g/dl (31.0-35.0); Mean Corpuscular Hemoglobin 25.7 pg (27.0-33.0); Mean Corpuscular Volume 78.5 fL (80-98); Mean Platelet Volume 9.7 fL (9.4-12.3); Monocytes Absolute Auto 0.3 X10*3/uL (0.1-1.2); Monocytes Percent Auto 5.3 % (2-11); Neutrophils Absolute Auto 3.6 X10*3/uL (2.0-8.3); Neutrophils Percent Auto 76.9 % (45-73); Platelet Count 165 X10*3/uL (160-400); Red Cell Distribution Width 15.7 % (11.0-16.0); White Blood Count 4.7 X10*3/uL (4.8-10.8)
[2021-06-15 05:35] LABS: D Dimer 714 NG/ML
[2021-06-15 05:47] LABS: Alanine Aminotransferase 29 U/L (0-31); Albumin Level 3.7 g/dL (3.5-5.0); Alkaline Phosphatase 53 U/L (39-117); Anion Gap 18 (12-20); Aspartate Amino Transferase 46 U/L (5-31); Bilirubin Total 0.5 mg/dL (0.0-1.0); Blood Urea Nitrogen 24 mg/dL (9-16); C Reactive Protein 19.26 mg/dL (< or = 0.50); Calcium 8.4 mg/dL (8.4-10.2); Carbon Dioxide 18 mmol/L (22-29); Chloride 109 mmol/L (96-108); Creatinine Clr Calc Pharmacy 62.9; Estimated Glomerular Filt Rate 44; Glucose Random 212 mg/dL (60-115); Phosphorus 3.7 mg/dL (2.7-4.5); Sodium 141 mmol/L (135-145); Total Protein 6.7 g/dL (6.5-8.0)
[2021-06-15] MEDS: Acetaminophen 325 MG TABLET 650 MG PO (06:29)
[2021-06-15 06:45] LABS: Ferritin 1623 ng/mL (10-250)
[2021-06-15 07:29] LABS: Glucose, Whole Blood 193 mg/dL (60-115)
[2021-06-15] MEDS: 0.9 % Sodium Chloride Flush 3 ML SYRINGE IVFLUSH ×3 (07:36→21:39)
[2021-06-15] MEDS: Insulin Lispro 100 UNIT/ML 3 ML VIAL SUBCUT ×4 (07:36→21:17)
[2021-06-15 07:54] LABS: Appearance Urine CLEAR; Color Urine YELLOW; Glucose Urine UA NEG (NEG); Leukocyte Esterase Urine NEG (NEG); Nitrite Urine NEG (NEG); UACC Culture Trigger NO; Urine Blood 1+ (NEG); Urine Ketones NEG (NEG); Urine Protein 1+ MG/DL (NEG-TRACE)
[2021-06-15 08:05] LABS: Bacteria Urine TRACE /LPF; Hyaline Casts Urine 0-2 /LPF; Squamous Epithelial Cell Urine TRACE /LPF
[2021-06-15] MEDS: Atorvastatin Calcium 40 MG TABLET PO (08:49)
[2021-06-15] MEDS: dexAMETHasone sod phosphate 4 MG/ML VIAL 6 MG IVPUSH (08:49)
[2021-06-15] MEDS: Rivaroxaban 10 MG TABLET PO (08:49)
[2021-06-15] MEDS: glipiZIDE 5 MG TABLET PO ×2 (08:49→21:21)
[2021-06-15 11:40] LABS: Glucose, Whole Blood 220 mg/dL (60-115)
--- NOTE | 2021-06-15 12:19 | MHC.CM.PN ---
CALL TO SON AT NUMBER LISTED IN CHART ([phone]) NO ABILITY TO LEAVE A MESSAGE, MAIL BOX IS FULL ACCORDING TO OUTGOING RECORDING.
--- NOTE | 2021-06-15 14:46 | W.PM.IDCN ---
History of Present Illness Data of Consult Service Date: 06/15/21 Requesting physician: Antonio Andersen Primary Care Provider: Unknown Physician HPI Reason for consult: COVID pneumonia,ICU patient She presents with shortness of breath and cough for a week She has not had COVID Her 15 year old daughter has COVID She has oxygen saturation 88% She is in ICU now on 100%,50l I discussed case with Dr Andersen Review of Systems Review of Systems: Yes all other systems are reviewed and are negative PMFSH Past Medical History Medical History Diabetes HTN (hypertension) Family History Family History Sister Diabetes Social History Social History Household Members: Family Housing: House Patient Tobacco Use Status: Never used Tobacco Use of substances other than those prescribed or required for medical reasons: No Currently Displaying Signs/Symptoms of Drug Intoxication Withdrawal: No Have you been hit, kicked, punched, or otherwise hurt by someone within the past year? If so, by whom?: No Do you feel safe in your current relationship?: Yes Is there a partner from a previous relationship who is making you feel unsafe now?: No Advance Directives: No Advance Directives Information Provided: No Do you have thoughts of harming others: None Do you have a plan to hurt others: No Plan Recently lost weight without trying: No Eating poorly because of decreased appetite: No Nutrition Risks: No Nutritional Risk Meds Allergies Allergy/AdvReac Type Severity Reaction Status Date / Time No Known Allergies Allergy Verified 06/13/21 05:05 Active Medications: Current Medications Acetaminophen (Acetaminophen 325 Mg Tablet) 650 mg PO Q6H PRN PRN Reason: Pain, Mild (Pain Scale 1-3) Last Admin: 06/15/21 06:29 Dose: 650 mg Documented by: Atorvastatin Calcium (Atorvastatin Calcium 40 Mg Tablet) 40 mg PO DAILY [facility] Last Admin: 06/15/21 08:49 Dose: 40 mg Documented by: Baricitinib (Baricitinib 2 Mg Tablet) 2 mg PO DAILY [facility] Stop: 06/28/21 09:01 Last Admin: 06/15/21 14:06 Dose: 2 mg Documented by: Cyclobenzaprine HCl (Cyclobenzaprine Hcl 10 Mg Tablet) 10 mg PO BID PRN PRN Reason: Muscle Spasm Dexamethasone Sodium Phosphate (Dexamethasone Sod Phosphate 4 Mg/Ml Vial) 6 mg IVPUSH DAILY [facility] Last Admin: 06/15/21 08:49 Dose: 6 mg Documented by: Glipizide (Glipizide 5 Mg Tablet) 5 mg PO BID [facility] Last Admin: 06/15/21 08:49 Dose: 5 mg Documented by: Remdesivir 100 mg/ Sodium (Chloride) 230 mls @ 115 mls/hr IV Q24H [facility] Stop: 06/18/21 17:59 Insulin Human Lispro (Insulin Lispro 100 Unit/Ml 3 Ml Vial) 0 unit SUBCUT QIDACHS [facility]; Protocol Last Admin: 06/15/21 11:43 Dose: 4 unit Documented by: Melatonin (Melatonin 3 Mg Tablet) 6 mg PO BEDTIME PRN PRN Reason: Insomnia Morphine Sulfate (Morphine Sulfate 4 Mg/Ml Cartridge) 4 mg IVPUSH Q2H PRN; Protocol PRN Reason: Shortness of Breath Ondansetron HCl (Ondansetron Hcl 4 Mg/2 Ml Vial) 4 mg IVPUSH Q8H PRN PRN Reason: Nausea and Vomiting Last Admin: 06/15/21 00:55 Dose: 4 mg Documented by: Pantoprazole Sodium (Pantoprazole Sodium 40 Mg/10 Ml Vial) 40 mg IVPUSH DAILY@0630 [facility] Rivaroxaban (Rivaroxaban 10 Mg Tablet) 10 mg PO DAILY [facility] Last Admin: 06/15/21 08:49 Dose: 10 mg Documented by: Sodium Chloride (0.9 % Sodium Chloride Flush 3 Ml Syringe) 3 ml IVFLUSH QSHIFT [facility] Last Admin: 06/15/21 07:36 Dose: 3 ml Documented by: Home Medications Medication Instructions Recorded Confirmed Last Taken Type Januvia 100 mg PO DAILY 06/13/21 06/13/21 06/12/21 History glipizide 5 mg PO BID 06/13/21 06/13/21 06/12/21 History hydrochlorothiazide 25 mg PO DAILY 06/13/21 06/13/21 06/12/21 History methocarbamol 500 mg PO Q6-8H PRN 06/13/21 06/13/21 Unknown History omeprazole 20 mg PO DAILY 06/13/21 06/13/2106/12/21 History rosuvastatin 10 mg PO DAILY 06/13/21 06/13/21 06/12/21 History Physical Exam Vital Signs: Vital Signs: Last Vital Signs Temp 99.3 F 06/15/21 11:00 Pulse 113 H 06/15/21 14:00 Resp 18 06/15/21 14:00 BP 108/59 L 06/15/21 14:00 Pulse Ox 85 L 06/15/21 14:00 Body Mass Index 39.9 Const: General: cooperative Resp: Other: shortness of breath Cardio: Rate: regular rate Rhythm: regular rhythm GI: Palpation (GI): nontender Skin: General skin exam: no rashes or lesions noted Results Labs CBC & Chem 7: 06/15/21 05:18 06/15/21 05:18 Labs: Short CBC 06/15/21 Range/Units 05:18 WBC 4.7 L (4.8-10.8) X10*3/uL Hgb 11.8 L (12.0-16.0) g/dl Hct 36.1 L (37-47) % Plt Count 165 (160-400) X10*3/uL BMP 06/15/21 05:18 Sodium 141 Potassium 4.0 Chloride 109 H Carbon Dioxide 18 L BUN 24 H Creatinine 1.22 Calcium 8.4 Liver Function 06/15/21 Range/Units 05:18 Total Bilirubin 0.5 (0.0-1.0) mg/dL AST 46 H (5-31) U/L ALT 29 (0-31) U/L Alkaline Phosphatase 53 (39-117) U/L Albumin 3.7 (3.5-5.0) g/dL Urine 06/15/21 Range/Units 07:38 Urine Color YELLOW Urine Appearance CLEAR Urine pH 6.0 (5.0-8.0) Ur Specific [place] 1.010 (1.005-1.025) Urine Protein 1+ H (NEG-TRACE) MG/DL Urine Glucose (UA) NEG (NEG) MG/DL Microbiology Microbiology Results: Microbiology 06/13/21 07:27 Blood - Venous Blood Culture - Preliminary No growth after 48 hours. 06/13/21 07:27 Blood - Venous Blood Culture - Preliminary No growth after 48 hours. Assessment and Plan (1) Pneumonia due to 2019 novel coronavirus: Status: Acute She has decompensation with COVID pneumonia. Her oxygen saturation is lower She has symptoms within seven days and hospitalized with LFTs and creatinine within qualification for Remdesivir. She meets criteria for augmented immunomodulatory treatment with CRP over 7.7 (19) P/F ratio less than 150 on highflow and symptoms 7 days She has no contraindications to baricitinib( Janus kinase inhibitor) 2-4 mg or tocilizumab with no recent blood clot,evidence of concurrent infection or special risk for GI perforation and no special immunosuppression. She has diabetes. (2) Hypoxia: Status: Acute (3) Diabetes: Status: Acute
--- NOTE | 2021-06-15 14:59 | PM.EVENT ---
Event Note Date of Service: 06/15/21 Event Note: Would also continue Dexamethasone
--- NOTE | 2021-06-15 15:05 | MHC.CM.PN ---
Pt in ICU with + COVID: not vaccinated: resides alone: no services or adaptive equipment: pt states her PCP is new to her from [facility] in [place]. Sons assist her with transportation and any other needs she may require. HCP completed: scanned into EMR and in patient's chart. No services anticipated unless pt requires home O2 and will then need VNA. L/M for [facility] to verify PCP. CM to follow for finalization of d/c plans
[2021-06-15] MEDS: Morphine Sulfate 4 MG/ML CARTRIDGE IVPUSH (15:52)
[2021-06-15] MEDS: Remdesivir 100 MG in 0.9 % Sodium Chloride 230 ML 115 MG IV (15:53)
[2021-06-15 16:40] LABS: Glucose, Whole Blood 290 mg/dL (60-115)
[2021-06-15] MEDS: fentaNYL citrate/PF 100 MCG/2 ML VIAL 25 MCG IVPUSH ×2 (21:38→21:39)
[2021-06-15] MEDS: Albuterol/Iprat 2.5/0.5MG 3 ML AMPUL.NEB INHALE (21:55)
[2021-06-15] MEDS: dexmedeTOMIDidine HCL/NS 400 MCG/100 ML INFUS..BTL 15.31 MCG IVCONT (23:01)
[2021-06-16] VITALS (30 sets, daily range): BP systolic 82–119; BP diastolic 45–81; PULSE 61–81; RESP 15–38; TEMP 36.3–37.7; O2SAT 83–98; BMI 39.9
[2021-06-16] MEDS: dexmedeTOMIDidine HCL/NS 400 MCG/100 ML INFUS..BTL 21.44 MCG IVCONT (03:59)
[2021-06-16 05:37] LABS: MANUAL DIFF FLAG NO
[2021-06-16 05:39] LABS: Hematocrit 35.9 % (37-47); Hemoglobin 11.8 g/dl (12.0-16.0); Imm Gran Abs Auto 0.02 X10*3/uL (0.00-0.03); Imm Gran Pct Auto 0.4 % (0.0-0.4); Lymphocytes Absolute Auto 1.1 X10*3/uL (1.2-4.9); Lymphocytes Percent Auto 22.9 % (20-40); Mean Corpuscular HGB Conc 32.9 g/dl (31.0-35.0); Mean Corpuscular Hemoglobin 25.5 pg (27.0-33.0); Mean Corpuscular Volume 77.7 fL (80-98); Mean Platelet Volume 10.5 fL (9.4-12.3); Monocytes Absolute Auto 0.3 X10*3/uL (0.1-1.2); Monocytes Percent Auto 6.1 % (2-11); Neutrophils Absolute Auto 3.4 X10*3/uL (2.0-8.3); Neutrophils Percent Auto 70.6 % (45-73); Platelet Count 197 X10*3/uL (160-400); Red Blood Count 4.62 X10*6/uL (4.20-5.50); Red Cell Distribution Width 15.6 % (11.0-16.0); White Blood Count 4.8 X10*3/uL (4.8-10.8)
[2021-06-16] MEDS: Pantoprazole Sodium 40 MG/10 ML VIAL IVPUSH (05:49)
[2021-06-16 06:03] LABS: Albumin Level 3.6 g/dL (3.5-5.0); Anion Gap 17 (12-20); Blood Urea Nitrogen 34 mg/dL (9-16); Calcium 8.8 mg/dL (8.4-10.2); Carbon Dioxide 19 mmol/L (22-29); Chloride 110 mmol/L (96-108); Creatinine Clr Calc Pharmacy 57.5; Estimated Glomerular Filt Rate 40; Glucose Random 279 mg/dL (60-115); Magnesium 2.4 mg/dL (1.6-2.6); Phosphorus 4.2 mg/dL (2.7-4.5); Potassium 4.3 mmol/L (3.3-5.1); Sodium 142 mmol/L (135-145)
--- NOTE | 2021-06-16 06:14 | PC.NURSE ---
Upon initial assessment at 1999- pt A&Ox4, mildy anxious per pt, maxed out on HFNC/NRB 15L/100%, RR 20-30s, SpO2 88%. New order for PRN 50 mcg IVP fentanyl, given with good effect. At 2100- oxygen probe changed, SpO2 75%, HR 110s, placed on CPAP 10/100%, fair toleration, able to take break with sips of water occasionally. At 2300- pt still stating anxiety and asking for something to knock me out . New order for precedex gtt, running per protocol. Overnight, pt tried to get OOB x2 and was transiently disoriented. Tmax 100.5 core. NSR on tele, HR 60-70s. SBP WNL. RR 30. SpO2 > 90% on current CPAP settings. Resting comfortably at this time, eyes closed. Bed alarm on, call krueger within reach.
[2021-06-16 07:29] LABS: Glucose, Whole Blood 266 mg/dL (60-115)
[2021-06-16 07:30] LABS: Venous Blood Gas Refer to POC result
[2021-06-16 07:32] LABS: VBG Base Excess -3.6 mmol/L; VBG HCO3 20 mmol/L (22-26); VBG pCO2 33 mmHg; VBG pH 7.39 (7.32-7.43); VBG pO2 65 mmHg
[2021-06-16] MEDS: Insulin Lispro 100 UNIT/ML 3 ML VIAL SUBCUT ×4 (08:29→21:56)
[2021-06-16] MEDS: glipiZIDE 5 MG TABLET PO (08:29)
[2021-06-16] MEDS: 0.9 % Sodium Chloride Flush 3 ML SYRINGE IVFLUSH ×3 (08:30→21:58)
[2021-06-16] MEDS: Atorvastatin Calcium 40 MG TABLET PO (08:30)
[2021-06-16] MEDS: Rivaroxaban 10 MG TABLET PO (08:30)
[2021-06-16] MEDS: dexAMETHasone sod phosphate 4 MG/ML VIAL 6 MG IVPUSH (08:30)
[2021-06-16 08:56] LABS: Glucose, Whole Blood 235 mg/dL (60-115)
[2021-06-16 10:13] LABS: VBG pO2 80 mmHg
[2021-06-16 10:14] LABS: VBG pH 7.43 (7.32-7.43)
[2021-06-16 10:16] LABS: Venous Blood Gas Refer to POC result
[2021-06-16 11:26] LABS: Glucose, Whole Blood 283 mg/dL (60-115)
--- NOTE | 2021-06-16 11:40 | P.PNCC_ITS ---
Subjective Subjective Date of Service: 06/16/21 Interval History: 66-year-old aunt with underlying history of diabetes mellitus, hypertension, and GERD. admitted on 06/13/2021 with 1 week of COVID symptoms for worsening hypoxemia to [facility] [place]. Patient has been treated with dexa methasone and remdesivir, her pressure oxygen requirements continued to escalate and she was transferred to intensive care unit on 06/15/2021 for noninvasive positive pressure ventilatory support. She also has been started on Baricitinib. No events overnight Critical Care Time (minutes): 45 Physical Exam Vital Signs: Vital Signs: Last Vital Signs Temp 97.3 F 06/16/21 08:00 Pulse 74 06/16/21 11:00 Resp 25 H 06/16/21 11:29 BP 104/45 L 06/16/21 11:00 Pulse Ox 87 L 06/16/21 11:00 Body Mass Index 39.9 Const: General: no acute distress, alert and awake Eyes: Sclerae: sclerae normal EOM: EOMs intact bilaterally Neck: Neck: Yes no lymphadenopathy, Yes trachea midline and Yes supple Resp: Effort & Inspection: normal respiratory effort (On CPAP) and no respiratory distress Auscultation: crackles (Diffuse bilateral) Cardio: Rate: regular rate Rhythm: regular rhythm Heart sounds: no gallops, no murmurs and no rubs GI: Palpation (GI): Soft to palpation and Other GI palpation findings present ( Nontender) Auscultation: normal bowel sounds Extrem: General: Yes no pedal edema, No clubbing and No cyanosis Objective Data Labs CBC & Chem 7: 06/16/21 05:22 06/16/21 05:22 Labs: Laboratory Results - last 24 hr 06/15/21 06/15/21 06/15/21 11:33 16:35 21:08 WBC RBC Hgb Hct MCV MCH MCHC RDW Plt Count MPV Immature Gran % (Auto) Neut % (Auto) Lymph % (Auto) [place] % (Auto) Eos % (Auto) Baso % (Auto) Lymph # (Auto) [place] # (Auto) Eos # (Auto) Baso # (Auto) Abs Immat Gran (auto) Absolute Neuts (auto) Absolute Nucleated RBC Nucleated RBC % (auto) VBG pH VBG pCO2 VBG pO2 VBG HCO3 VBG O2 Saturation VBG Base Excess Sodium Potassium Chloride Carbon Dioxide Anion Gap BUN Creatinine Estim Creat Clear Calc Estimated GFR POC Glucose 220 H 290 H 235 H Random Glucose Calcium Phosphorus Magnesium Albumin 06/16/21 06/16/21 06/16/21 05:22 05:22 05:35 WBC 4.8 RBC 4.62 Hgb 11.8 L Hct 35.9 L MCV 77.7 L MCH 25.5 L MCHC 32.9 RDW 15.6 Plt Count 197 MPV 10.5 Immature Gran % (Auto) 0.4 Neut % (Auto) 70.6 Lymph % (Auto) 22.9 [place] % (Auto) 6.1 Eos % (Auto) 0.0 Baso % (Auto) 0.0 Lymph # (Auto) 1.1 L [place] # (Auto) 0.3 Eos # (Auto) 0.0 Baso # (Auto) 0.0 Abs Immat Gran (auto) 0.02 Absolute Neuts (auto) 3.4 Absolute Nucleated RBC 0.000 Nucleated RBC % (auto) 0.0 VBG pH 7.43 VBG pCO2 TNP VBG pO2 80 VBG HCO3 TNP VBG O2 Saturation 94.0 VBG Base Excess TNP Sodium 142 Potassium 4.3 Chloride 110 H Carbon Dioxide 19 L Anion Gap 17 BUN 34 H Creatinine 1.33 Estim Creat Clear Calc 57.5 Estimated GFR 40 POC Glucose Random Glucose 279 H Calcium 8.8 Phosphorus 4.2 Magnesium 2.4 Albumin 3.6 06/16/21 06/16/21 06/16/21 07:24 07:27 11:22 WBC RBC Hgb Hct MCV MCH MCHC RDW Plt Count MPV Immature Gran % (Auto) Neut % (Auto) Lymph % (Auto) [place] % (Auto) Eos % (Auto) Baso % (Auto) Lymph # (Auto) [place] # (Auto) Eos # (Auto) Baso # (Auto) Abs Immat Gran (auto) Absolute Neuts (auto) Absolute Nucleated RBC Nucleated RBC % (auto) VBG pH 7.39 VBG pCO2 33 VBG pO2 65 VBG HCO3 20 L VBG O2 Saturation 88.0 VBG Base Excess -3.6 Sodium Potassium Chloride Carbon Dioxide Anion Gap BUN Creatinine Estim Creat Clear Calc Estimated GFR POC Glucose 266 H 283 H Random Glucose Calcium Phosphorus Magnesium Albumin Microbiology Microbiology Results: Microbiology 06/13/21 07:27 Blood - Venous Blood Culture - Preliminary No growth after 48 hours. 06/13/21 07:27 Blood - Venous Blood Culture - Preliminary No growth after 48 hours. Quality Stroke Does the patient have a stroke diagnosis?: No VTE Prior VTE?: No VTE Risk Level:: Medical - moderate - high VTE Device Contraindication: Treatment Not Indicated VTE Drug Contraindication: N/A - Med Ordered Progress Note: A&P Assessment and plan (1) Acute respiratory failure with hypoxemia: Status: Acute Assessment and Plan: Assessment: 66-year-old leads with underlying history of hypertension and diabetes mellitus admitted with dyspnea and hypoxemia secondary to COVID-19 ARDS now requiring noninvasive positive pressure ventilatory support. Plan: Neuro: No acute issues. Cardiac: No acute issues. Pulmonary: Acute hypoxic respiratory failure secondary to COVID-19 ARDS now requiring CPAP support. Continue to titrate off noninvasive positive pressure ventilatory support as tolerated. Renal: No acute issues. Endo: No acute issues. Underlying diabetes mellitus. GI: No acute issues. ID: COVID 19, continue with dexamethasone, remdesivir, and baricitinib Heme/Onc: No acute issues. Psych: No acute issues. Miscellaneous: No acute issues. Prophylaxis: Heparin, ppi Diet: Regular Critical care time spent: 45 minutes (2) Acute respiratory distress syndrome (ARDS) due to COVID-19 virus: Status: Acute (3) Diabetes: Status: Acute (4) HTN (hypertension): Status: Acute
[2021-06-16] MEDS: Heparin Sodium,Porcine 5,000 UNIT/ML VIAL 5000 UNIT SUBCUT ×2 (12:01→19:17)
--- NOTE | 2021-06-16 13:44 | PC.NURSE ---
Pt requires CPAP 10 FiO2 100% to maintain SaO2 upper 90s. Attempted Nasal pillow however pt did not tolerate. Tried highflow 55L/min FiO2 100% with NRB fully flushed and SaO2 drops to 82%. RT in at this time placing pt back on full mask CPAP.
[2021-06-16] MEDS: Remdesivir 100 MG in 0.9 % Sodium Chloride 230 ML 115 MG IV (15:45)
[2021-06-16 16:37] LABS: Glucose, Whole Blood 276 mg/dL (60-115)
[2021-06-16] MEDS: ondansetron HCL 4 MG/2 ML VIAL IVPUSH (19:17)
[2021-06-16 21:53] LABS: Glucose, Whole Blood 188 mg/dL (60-115)
[2021-06-16] MEDS: dexmedeTOMIDidine HCL/NS 400 MCG/100 ML INFUS..BTL 15.31 MCG IVCONT (22:13)
[2021-06-17] VITALS (30 sets, daily range): BP systolic 94–169; BP diastolic 59–86; PULSE 41–71; RESP 13–36; TEMP 35.1–37.7; O2SAT 89–97; BMI 39.4
[2021-06-17] MEDS: fentaNYL citrate/PF 100 MCG/2 ML VIAL 50 MCG IVPUSH ×4 (00:03→11:56)
[2021-06-17] MEDS: ondansetron HCL 4 MG/2 ML VIAL IVPUSH (02:29)
[2021-06-17] MEDS: dexmedeTOMIDidine HCL/NS 400 MCG/100 ML INFUS..BTL 21.44 MCG IVCONT ×3 (03:08→11:07)
[2021-06-17] MEDS: Heparin Sodium,Porcine 5,000 UNIT/ML VIAL 5000 UNIT SUBCUT ×3 (03:08→19:33)
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
[2021-06-17 06:07] LABS: MANUAL DIFF FLAG NO
[2021-06-17 06:10] LABS: Eosinophils Percent Auto 0.2 % (0-4); Hematocrit 37.2 % (37-47); Hemoglobin 12.2 g/dl (12.0-16.0); Imm Gran Abs Auto 0.03 X10*3/uL (0.00-0.03); Imm Gran Pct Auto 0.5 % (0.0-0.4); Lymphocytes Absolute Auto 1.3 X10*3/uL (1.2-4.9); Lymphocytes Percent Auto 20.7 % (20-40); Mean Corpuscular HGB Conc 32.8 g/dl (31.0-35.0); Mean Corpuscular Hemoglobin 25.8 pg (27.0-33.0); Mean Corpuscular Volume 78.6 fL (80-98); Mean Platelet Volume 10.4 fL (9.4-12.3); Monocytes Absolute Auto 0.3 X10*3/uL (0.1-1.2); Monocytes Percent Auto 5.2 % (2-11); Neutrophils Absolute Auto 4.7 X10*3/uL (2.0-8.3); Neutrophils Percent Auto 73.4 % (45-73); Platelet Count 226 X10*3/uL (160-400); Red Blood Count 4.73 X10*6/uL (4.20-5.50); Red Cell Distribution Width 15.3 % (11.0-16.0); White Blood Count 6.3 X10*3/uL (4.8-10.8)
[2021-06-17 06:15] LABS: VBG Base Excess -4.1 mmol/L; VBG HCO3 17 mmol/L (22-26); VBG pCO2 24 mmHg; VBG pH 7.46 (7.32-7.43); VBG pO2 66 mmHg
[2021-06-17 06:52] LABS: Albumin Level 3.6 g/dL (3.5-5.0); Anion Gap 16 (12-20); Blood Urea Nitrogen 40 mg/dL (9-16); Calcium 8.6 mg/dL (8.4-10.2); Carbon Dioxide 17 mmol/L (22-29); Chloride 113 mmol/L (96-108); Creatinine Clr Calc Pharmacy 69.1; Estimated Glomerular Filt Rate 50; Glucose Random 233 mg/dL (60-115); Magnesium 2.3 mg/dL (1.6-2.6); Phosphorus 3.8 mg/dL (2.7-4.5); Potassium 4.3 mmol/L (3.3-5.1); Sodium 142 mmol/L (135-145)
[2021-06-17 06:54] LABS: Venous Blood Gas Refer to POC result
[2021-06-17] MEDS: Insulin Lispro 100 UNIT/ML 3 ML VIAL SUBCUT ×4 (07:22→21:09)
[2021-06-17 07:23] LABS: Glucose, Whole Blood 230 mg/dL (60-115)
[2021-06-17] MEDS: 0.9 % Sodium Chloride Flush 3 ML SYRINGE IVFLUSH (07:23)
[2021-06-17] MEDS: Atorvastatin Calcium 40 MG TABLET PO (07:23)
[2021-06-17] MEDS: Cyclobenzaprine HCl 10 MG TABLET PO (07:23)
[2021-06-17] MEDS: dexAMETHasone sod phosphate 4 MG/ML VIAL 6 MG IVPUSH (07:24)
--- NOTE | 2021-06-17 08:38 | MHC.CLN ---
F/U RECOMMEND GLUCERNA BID R/T POOR PO
--- NOTE | 2021-06-17 11:07 | PM.CCPN ---
Subjective Subjective Date of Service: 06/17/21 Interval History: 66-year-old aunt with underlying history of diabetes mellitus, hypertension, and GERD. admitted on 06/13/2021 with 1 week of COVID symptoms for worsening hypoxemia to [facility] [place].? Patient has been treated with dexamethasone and remdesivir, her pressure oxygen requirements continued to escalate and she was transferred to intensive care unit on 06/15/2021 for noninvasive positive pressure ventilatory support.? She also has been started on Baricitinib. Unfortunately her oxygenation continues to deteriorate. Overnight with bolus of agitation requiring Precedex drip. Critical Care Time (minutes): 45 Physical Exam Vital Signs: Vital Signs: Last Vital Signs Temp 97.5 F 06/17/21 11:00 Pulse 49 L 06/17/21 11:00 Resp 30 H 06/17/21 11:00 BP 136/76 06/17/21 11:00 Pulse Ox 95 06/17/21 11:00 Body Mass Index 39.4 Const: General: no acute distress, alert and awake Eyes: Sclerae: sclerae normal EOM: EOMs intact bilaterally Neck: Neck: Yes no lymphadenopathy, Yes trachea midline and Yes supple Resp: Effort & Inspection: normal respiratory effort (On CPAP) and no respiratory distress Auscultation: rales (Diffuse bilateral) Cardio: Rate: regular rate Rhythm: regular rhythm Heart sounds: no gallops, no murmurs and no rubs GI: Palpation (GI): Soft to palpation and Other GI palpation findings present ( Nontender) Auscultation: normal bowel sounds Extrem: General: Yes no pedal edema, No clubbing and No cyanosis Objective Data Labs CBC & Chem 7: 06/17/21 06:00 06/17/21 06:00 Labs: Laboratory Results - last 24 hr 06/16/21 06/16/21 06/16/21 11:22 15:50 21:38 WBC RBC Hgb Hct MCV MCH MCHC RDW Plt Count MPV Immature Gran % (Auto) Neut % (Auto) Lymph % (Auto) [place] % (Auto) Eos % (Auto) Baso % (Auto) Lymph # (Auto) [place] # (Auto) Eos # (Auto) Baso # (Auto) Abs Immat Gran (auto) Absolute Neuts (auto) Absolute Nucleated RBC Nucleated RBC % (auto) VBG pH VBG pCO2 VBG pO2 VBG HCO3 VBG O2 Saturation VBG Base Excess Sodium Potassium Chloride Carbon Dioxide Anion Gap BUN Creatinine Estim Creat Clear Calc Estimated GFR POC Glucose 283 H 276 H 188 H Random Glucose Calcium Phosphorus Magnesium Albumin 06/17/21 06/17/21 06/17/21 06:00 06:00 06:08 WBC 6.3 RBC 4.73 Hgb 12.2 Hct 37.2 MCV 78.6 L MCH 25.8 L MCHC 32.8 RDW 15.3 Plt Count 226 MPV 10.4 Immature Gran % (Auto) 0.5 H Neut % (Auto) 73.4 H Lymph % (Auto) 20.7 [place] % (Auto) 5.2 Eos % (Auto) 0.2 Baso % (Auto) 0.0 Lymph # (Auto) 1.3 [place] # (Auto) 0.3 Eos # (Auto) 0.0 Baso # (Auto) 0.0 Abs Immat Gran (auto) 0.03 Absolute Neuts (auto) 4.7 Absolute Nucleated RBC 0.000 Nucleated RBC % (auto) 0.0 VBG pH 7.46 H VBG pCO2 24 VBG pO2 66 VBG HCO3 17 L VBG O2 Saturation 89.0 VBG Base Excess -4.1 Sodium 142 Potassium 4.3 Chloride 113 H Carbon Dioxide 17 L Anion Gap 16 BUN 40 H Creatinine 1.10 Estim Creat Clear Calc 69.1 Estimated GFR 50 POC Glucose Random Glucose 233 H Calcium 8.6 Phosphorus 3.8 Magnesium 2.3 Albumin 3.6 06/17/21 07:17 WBC RBC Hgb Hct MCV MCH MCHC RDW Plt Count MPV Immature Gran % (Auto) Neut % (Auto) Lymph % (Auto) [place] % (Auto) Eos % (Auto) Baso % (Auto) Lymph # (Auto) [place] # (Auto) Eos # (Auto) Baso # (Auto) Abs Immat Gran (auto) Absolute Neuts (auto) Absolute Nucleated RBC Nucleated RBC % (auto) VBG pH VBG pCO2 VBG pO2 VBG HCO3 VBG O2 Saturation VBG Base Excess Sodium Potassium Chloride Carbon Dioxide Anion Gap BUN Creatinine Estim Creat Clear Calc Estimated GFR POC Glucose 230 H Random Glucose Calcium Phosphorus Magnesium Albumin Microbiology Microbiology Results: Microbiology 06/13/21 07:27 Blood - Venous Blood Culture - Preliminary No growth after 48 hours. 06/13/21 07:27 Blood - Venous Blood Culture - Preliminary No growth after 48 hours. Quality Stroke Does the patient have a stroke diagnosis?: No VTE Prior VTE?: No VTE Risk Level:: Medical - moderate - high VTE Device Contraindication: Treatment Not Indicated VTE Drug Contraindication: N/A - Med Ordered Progress Note: A&P Assessment and plan (1) Acute respiratory distress syndrome (ARDS) due to COVID-19 virus: Status: Acute Assessment and Plan: Assessment:? 66-year-old leads with underlying history of hypertension and diabetes mellitus admitted with dyspnea and hypoxemia secondary to COVID-19 ARDS now requiring noninvasive positive pressure ventilatory support. Plan: Neuro:? No acute issues. Cardiac:? No acute issues. Pulmonary:? Acute hypoxic respiratory failure secondary to COVID-19 ARDS now requiring CPAP support. Overall slowly worsening, may require intubation. Continue to titrate off noninvasive positive pressure ventilatory support as tolerated. Renal:? No acute issues.? Endo:? No acute issues.? Underlying diabetes mellitus.? GI:? No acute issues. ID:? COVID 19, continue with dexamethasone, remdesivir, and baricitinib Heme/Onc:? No acute issues. Psych:? No acute issues. Miscellaneous:? No acute issues. Prophylaxis:? Heparin, ppi Diet:? Regular Critical care time spent:? 45 minutes (2) Acute respiratory failure with hypoxemia: Status: Acute
[2021-06-17 11:28] LABS: Glucose, Whole Blood 273 mg/dL (60-115)
[2021-06-17] MEDS: dexmedeTOMIDidine HCL/NS 400 MCG/100 ML INFUS..BTL 30.63 MCG IVCONT ×4 (13:39→23:41)
[2021-06-17] MEDS: Midazolam HCl/PF 2 MG/2 ML VIAL 1 MG IVPUSH (13:56)
[2021-06-17] MEDS: Remdesivir 100 MG in 0.9 % Sodium Chloride 230 ML 115 MG IV (15:26)
[2021-06-17 16:34] LABS: Glucose, Whole Blood 289 mg/dL (60-115)
[2021-06-17] MEDS: diphenhydrAMINE HCL 50 MG/ML VIAL IVPUSH (18:04)
[2021-06-17] MEDS: LORazepam 2 MG/ML VIAL 1 MG IVPUSH (18:04)
[2021-06-17 21:05] LABS: Glucose, Whole Blood 272 mg/dL (60-115)
[2021-06-18] VITALS (31 sets, daily range): BP systolic 141–179; BP diastolic 31–98; PULSE 44–79; RESP 15–42; TEMP 35.6–37; O2SAT 88–99; BMI 38.8
[2021-06-18] MEDS: fentaNYL citrate/PF 100 MCG/2 ML VIAL 50 MCG IVPUSH ×4 (00:30→23:23)
[2021-06-18] MEDS: 0.9 % Sodium Chloride Flush 3 ML SYRINGE IVFLUSH ×3 (00:34→15:44)
[2021-06-18] MEDS: dexmedeTOMIDidine HCL/NS 400 MCG/100 ML INFUS..BTL 30.63 MCG IVCONT ×2 (02:31→05:10)
[2021-06-18] MEDS: Heparin Sodium,Porcine 5,000 UNIT/ML VIAL 5000 UNIT SUBCUT ×3 (03:49→19:27)
[2021-06-18 05:47] LABS: VBG Base Excess -0.1 mmol/L; VBG HCO3 22 mmol/L (22-26); VBG pCO2 30 mmHg; VBG pH 7.46 (7.32-7.43); VBG pO2 54 mmHg
[2021-06-18] MEDS: Pantoprazole Sodium 40 MG/10 ML VIAL IVPUSH (05:53)
[2021-06-18 06:08] LABS: MANUAL DIFF FLAG NO
[2021-06-18 06:09] LABS: Basophils Percent Auto 0.1 % (0-2); Eosinophils Percent Auto 0.5 % (0-4); Hematocrit 39.5 % (37-47); Hemoglobin 13.1 g/dl (12.0-16.0); Imm Gran Abs Auto 0.08 X10*3/uL (0.00-0.03); Lymphocytes Absolute Auto 1.4 X10*3/uL (1.2-4.9); Lymphocytes Percent Auto 17.7 % (20-40); Mean Corpuscular HGB Conc 33.2 g/dl (31.0-35.0); Mean Corpuscular Hemoglobin 25.8 pg (27.0-33.0); Mean Corpuscular Volume 77.8 fL (80-98); Mean Platelet Volume 10.5 fL (9.4-12.3); Monocytes Absolute Auto 0.4 X10*3/uL (0.1-1.2); Monocytes Percent Auto 4.7 % (2-11); Neutrophils Absolute Auto 5.9 X10*3/uL (2.0-8.3); Platelet Count 269 X10*3/uL (160-400); Red Blood Count 5.08 X10*6/uL (4.20-5.50); Red Cell Distribution Width 14.9 % (11.0-16.0); White Blood Count 7.7 X10*3/uL (4.8-10.8)
[2021-06-18 06:24] LABS: Venous Blood Gas Refer to POC result
[2021-06-18 06:25] LABS: Albumin Level 3.6 g/dL (3.5-5.0); Anion Gap 17 (12-20); Blood Urea Nitrogen 31 mg/dL (9-16); Calcium 8.9 mg/dL (8.4-10.2); Carbon Dioxide 21 mmol/L (22-29); Chloride 114 mmol/L (96-108); Creatinine Clr Calc Pharmacy 86.4; Estimated Glomerular Filt Rate > 60; Glucose Random 164 mg/dL (60-115); Magnesium 2.2 mg/dL (1.6-2.6); Phosphorus 3.7 mg/dL (2.7-4.5); Potassium 4.2 mmol/L (3.3-5.1); Sodium 148 mmol/L (135-145)
[2021-06-18 07:23] LABS: Glucose, Whole Blood 148 mg/dL (60-115)
[2021-06-18] MEDS: dexAMETHasone sod phosphate 4 MG/ML VIAL 6 MG IVPUSH (07:55)
[2021-06-18] MEDS: dexmedeTOMIDidine HCL/NS 400 MCG/100 ML INFUS..BTL 36.75 MCG IVCONT ×7 (08:03→23:18)
--- NOTE | 2021-06-18 08:34 | MHC.CM.PN ---
pt remains in icu on 100% fio2 bipap. No services anticipated unless pt requires home O2 and will then need VNA. son to transport at mt. cm to cont. to follow.
[2021-06-18] MEDS: Dextrose 5 % 1,000 ML 75 ML IVCONT ×2 (08:39→20:43)
[2021-06-18] MEDS: Atorvastatin Calcium 40 MG TABLET PO (10:22)
[2021-06-18 11:26] LABS: Glucose, Whole Blood 247 mg/dL (60-115)
[2021-06-18] MEDS: Insulin Lispro 100 UNIT/ML 3 ML VIAL SUBCUT ×3 (11:29→21:43)
--- NOTE | 2021-06-18 11:52 | PC.NURSE ---
Addendum entered by Jossy Sauer RN 06/18/21 18:35: PT ORIENTED TO SELF ONLY - REMAINS CONFUSED AND VAGUE. REMAINS ON PRECEDEX AND RESTRAINTED FOR AIRWAY PROTECTION. CONTINUES TO ATTEMPT TO REMOVE BIPAP. HYDROCOLLOID DRESSING APPLIED TO BRIDGE OF NOSE DUE TO BLANCHABLE REDNESS NOTED. Q2HR REPO, PILLOWS UTILIZED, BATHED AND BARRIER CREAM APPLIED. Original Note: FAMILY ALLOWED TO VISIT BY DOOR. SON STEPHEN TOOK PATIENTS CLOTHES AND WALLET HOME. PATIENTS GLASSES, CELLPHONE AND FURNITURE FINISHER APPRENTICE LEFT BEDSIDE. NEW BELONGINGS LIST COMPLETED AND PLACED IN CHART.
--- NOTE | 2021-06-18 15:18 | P.PNCC_ITS ---
Subjective Subjective Date of Service: 06/18/21 Critical Care Time (minutes): 45 Comment: 66-year-old aunt with underlying history of diabetes mellitus, hypertension, and GERD. admitted on 06/13/2021 with 1 week of COVID symptoms for worsening hypoxemia to [facility]. Patient has been treated with dexamethasone and remdesivir, her pressure oxygen requirements continued to escalate and she was transferred to intensive care unit on 06/15/2021 for noninv asive positive pressure ventilatory support. She also has been started on Baricitinib. Unfortunately her oxygenation continues to deteriorate slowly No events overnight. Physical Exam Vital Signs: Vital Signs: Last Vital Signs Temp 97.9 F 06/18/21 15:00 Pulse 50 06/18/21 15:00 Resp 31 H 06/18/21 15:00 BP 175/98 H 06/18/21 15:00 Pulse Ox 99 06/18/21 15:00 Body Mass Index 38.8 Const: General: no acute distress, awake, anxious and confusion Orientation/consciousness: confusion Eyes: Sclerae: sclerae normal EOM: EOMs intact bilaterally Neck: Neck: Yes no lymphadenopathy, Yes trachea midline and Yes supple Resp: Effort & Inspection: normal respiratory effort (On BiPAP) and no respiratory distress Auscultation: crackles (Diffuse bilateral) Cardio: Rate: regular rate Rhythm: regular rhythm Heart sounds: no gallops, no murmurs and no rubs GI: Palpation (GI): Soft to palpation and Other GI palpation findings present ( Nontender) Auscultation: normal bowel sounds Neuro: General: confusion Extrem: General: Yes no pedal edema, No clubbing and No cyanosis Objective Data Labs CBC & Chem 7: 06/18/21 05:41 06/18/21 05:41 Labs: Laboratory Results - last 24 hr 06/17/21 06/17/21 06/18/21 16:26 20:57 05:41 WBC 7.7 RBC 5.08 Hgb 13.1 Hct 39.5 MCV 77.8 L MCH 25.8 L MCHC 33.2 RDW 14.9 Plt Count 269 MPV 10.5 Immature Gran % (Auto) 1.0 H Neut % (Auto) 76.0 H Lymph % (Auto) 17.7 L [place] % (Auto) 4.7 Eos % (Auto) 0.5 Baso % (Auto) 0.1 Lymph # (Auto) 1.4 [place] # (Auto) 0.4 Eos # (Auto) 0.0 Baso # (Auto) 0.0 Abs Immat Gran (auto) 0.08 H Absolute Neuts (auto) 5.9 Absolute Nucleated RBC 0.000 Nucleated RBC % (auto) 0.0 VBG pH VBG pCO2 VBG pO2 VBG HCO3 VBG O2 Saturation VBG Base Excess Sodium Potassium Chloride Carbon Dioxide Anion Gap BUN Creatinine Estim Creat Clear Calc Estimated GFR POC Glucose 289 H 272 H Random Glucose Calcium Phosphorus Magnesium Albumin 06/18/21 06/18/21 06/18/21 05:41 05:42 07:10 WBC RBC Hgb Hct MCV MCH MCHC RDW Plt Count MPV Immature Gran % (Auto) Neut % (Auto) Lymph % (Auto) [place] % (Auto) Eos % (Auto) Baso % (Auto) Lymph # (Auto) [place] # (Auto) Eos # (Auto) Baso # (Auto) Abs Immat Gran (auto) Absolute Neuts (auto) Absolute Nucleated RBC Nucleated RBC % (auto) VBG pH 7.46 H VBG pCO2 30 VBG pO2 54 VBG HCO3 22 VBG O2 Saturation 78.0 VBG Base Excess -0.1 Sodium 148 H Potassium 4.2 Chloride 114 H Carbon Dioxide 21 L Anion Gap 17 BUN 31 H Creatinine 0.88 Estim Creat Clear Calc 86.4 Estimated GFR > 60 POC Glucose 148 H Random Glucose 164 H Calcium 8.9 Phosphorus 3.7 Magnesium 2.2 Albumin 3.6 06/18/21 11:21 WBC RBC Hgb Hct MCV MCH MCHC RDW Plt Count MPV Immature Gran % (Auto) Neut % (Auto) Lymph % (Auto) [place] % (Auto) Eos % (Auto) Baso % (Auto) Lymph # (Auto) [place] # (Auto) Eos # (Auto) Baso # (Auto) Abs Immat Gran (auto) Absolute Neuts (auto) Absolute Nucleated RBC Nucleated RBC % (auto) VBG pH VBG pCO2 VBG pO2 VBG HCO3 VBG O2 Saturation VBG Base Excess Sodium Potassium Chloride Carbon Dioxide Anion Gap BUN Creatinine Estim Creat Clear Calc Estimated GFR POC Glucose 247 H Random Glucose Calcium Phosphorus Magnesium Albumin Microbiology Microbiology Results: Microbiology 06/13/21 07:27 Blood - Venous Blood Culture - Final No growth after 5 days. 06/13/21 07:27 Blood - Venous Blood Culture - Final No growth after 5 days. Quality Stroke Does the patient have a stroke diagnosis?: No VTE Prior VTE?: No VTE Risk Level:: Medical - moderate - high VTE Device Contraindication: Treatment Not Indicated VTE Drug Contraindication: N/A - Med Ordered Progress Note: A&P Assessment and plan (1) Acute respiratory distress syndrome (ARDS) due to COVID-19 virus: Status: Acute Assessment and Plan: Assessment: 66-year-old leads with underlying history of hypertension and diabetes mellitus admitted with dyspnea and hypoxemia secondary to COVID-19 ARDS now requiring noninvasive positive pressure ventilatory support. Plan: Neuro: No acute issues. Cardiac: No acute issues. Pulmonary: Acute hypoxic respiratory failure secondary to COVID-19 ARDS now requiring CPAP support. Overall slowly worsening, may require intubation. Continue to titrate off noninvasive positive pressure ventilatory support as tolerated. Renal: No acute issues. Endo: No acute issues. Underlying diabetes mellitus. GI: No acute issues. ID: COVID 19, continue with dexamethasone and baricitinib. Finished remdesivir. Heme/Onc: No acute issues. Psych: No acute issues. Miscellaneous: No acute issues. Prophylaxis: Heparin, ppi Diet: Regular Critical care time spent: 45 minutes (2) Acute respiratory failure with hypoxemia: Status: Acute (3) Diabetes: Status: Acute (4) HTN (hypertension): Status: Acute
[2021-06-18] MEDS: Remdesivir 100 MG in 0.9 % Sodium Chloride 230 ML 115 MG IV (15:44)
[2021-06-18 16:46] LABS: Glucose, Whole Blood 316 mg/dL (60-115)
[2021-06-18 21:32] LABS: Glucose, Whole Blood 238 mg/dL (60-115)
[2021-06-19] VITALS (33 sets, daily range): BP systolic 103–176; BP diastolic 59–95; PULSE 49–106; RESP 18–45; TEMP 36.4–38.4; O2SAT 89–98; BMI 38.8
[2021-06-19] MEDS: 0.9 % Sodium Chloride Flush 3 ML SYRINGE IVFLUSH ×3 (00:09→16:14)
[2021-06-19] MEDS: fentaNYL citrate/PF 100 MCG/2 ML VIAL 50 MCG IVPUSH ×5 (00:59→17:34)
[2021-06-19] MEDS: dexmedeTOMIDidine HCL/NS 400 MCG/100 ML INFUS..BTL 36.75 MCG IVCONT ×3 (01:56→06:02)
[2021-06-19] MEDS: Heparin Sodium,Porcine 5,000 UNIT/ML VIAL 5000 UNIT SUBCUT ×3 (04:29→19:44)
[2021-06-19 05:54] LABS: VBG Base Excess -1.1 mmol/L; VBG HCO3 22 mmol/L (22-26); VBG pCO2 32 mmHg; VBG pH 7.44 (7.32-7.43); VBG pO2 59 mmHg
[2021-06-19] MEDS: Pantoprazole Sodium 40 MG/10 ML VIAL IVPUSH (06:02)
[2021-06-19 06:03] LABS: MANUAL DIFF FLAG NO
[2021-06-19 06:07] LABS: Basophils Percent Auto 0.1 % (0-2); Eosinophils Absolute Auto 0.1 X10*3/uL (0.0-0.4); Eosinophils Percent Auto 0.6 % (0-4); Hematocrit 41.2 % (37-47); Hemoglobin 13.2 g/dl (12.0-16.0); Imm Gran Abs Auto 0.12 X10*3/uL (0.00-0.03); Imm Gran Pct Auto 1.1 % (0.0-0.4); Lymphocytes Absolute Auto 1.2 X10*3/uL (1.2-4.9); Lymphocytes Percent Auto 10.8 % (20-40); Mean Corpuscular Hemoglobin 25.4 pg (27.0-33.0); Mean Corpuscular Volume 79.2 fL (80-98); Mean Platelet Volume 10.5 fL (9.4-12.3); Monocytes Absolute Auto 0.3 X10*3/uL (0.1-1.2); Monocytes Percent Auto 3.2 % (2-11); Neutrophils Percent Auto 84.2 % (45-73); Platelet Count 255 X10*3/uL (160-400); Red Cell Distribution Width 14.7 % (11.0-16.0); White Blood Count 10.7 X10*3/uL (4.8-10.8)
[2021-06-19 06:23] LABS: Venous Blood Gas Refer to POC result
[2021-06-19 06:30] LABS: Albumin Level 3.4 g/dL (3.5-5.0); Anion Gap 18 (12-20); Blood Urea Nitrogen 24 mg/dL (9-16); Calcium 8.6 mg/dL (8.4-10.2); Carbon Dioxide 19 mmol/L (22-29); Chloride 112 mmol/L (96-108); Creatinine Clr Calc Pharmacy 90.8; Estimated Glomerular Filt Rate > 60; Glucose Random 195 mg/dL (60-115); Phosphorus 3.8 mg/dL (2.7-4.5); Potassium 4.2 mmol/L (3.3-5.1); Sodium 145 mmol/L (135-145)
[2021-06-19 07:32] LABS: Glucose, Whole Blood 196 mg/dL (60-115)
[2021-06-19] MEDS: Insulin Lispro 100 UNIT/ML 3 ML VIAL SUBCUT ×4 (07:32→21:39)
[2021-06-19] MEDS: Ketamine HCl 500 MG/5 ML VIAL 40 MG IVPUSH (08:27)
[2021-06-19] MEDS: Ketamine HCl 500 MG in 0.9 % Sodium Chloride 250 ML 30.45 MG IVCONT ×2 (08:38→16:14)
[2021-06-19] MEDS: dexAMETHasone sod phosphate 4 MG/ML VIAL 6 MG IVPUSH (09:25)
--- NOTE | 2021-06-19 09:50 | MHC.CLN ---
Addendum entered by Chelsea Hooper RD 06/19/21 10:22: AGREE WITH PROVIDER'S ASSESSMENT BELOW Original Note: IF TUBE FEEDING NEEDED: RECOMMEND GLUCERNA AT 65 ML/HOUR WITH 30 ML OF PROSOURCE ONCE A DAY TO PROVIDE 1620 KCALS (24.5 KCALS/KG PER IBW), 80.5 GRAMS PROTEIN (1.2 G/KG PER IBW) AND 1330ML FREE WATER FROM FORMULA START AT 20 ML/HOUR AND INCREASE BY 10 ML Q 4 HOURS
[2021-06-19] MEDS: Dextrose 5 % 1,000 ML 50 ML IVCONT (11:08)
[2021-06-19 11:26] LABS: Glucose, Whole Blood 222 mg/dL (60-115)
--- NOTE | 2021-06-19 11:43 | P.PNCC_ITS ---
Subjective Subjective Date of Service: 06/19/21 Interval History: 66-year-old aunt with underlying history of diabetes mellitus, hypertension, and GERD. admitted on 06/13/2021 with 1 week of COVID symptoms for worsening hypoxemia to [facility]. Patient has been treated with dexa methasone and remdesivir, her pressure oxygen requirements continued to escalate and she was transferred to intensive care unit on 06/15/2021 for noninvasive positive pressure ventilatory support. She also has been started on Baricitinib. Unfortunately her oxygenation continues to deteriorate slowly. Overnight with increased agitation, now requiring ketamine drip. Maintains normoxemia on 100% BiPAP. Critical Care Time (minutes): 45 Physical Exam Vital Signs: Vital Signs: Last Vital Signs Temp 100.8 F H 06/19/21 11:00 Pulse 73 06/19/21 11:00 Resp 38 H 06/19/21 11:11 BP 131/63 06/19/21 11:00 Pulse Ox 94 06/19/21 11:00 Body Mass Index 38.8 Const: General: no acute distress, awake and confusion Orientation/consciousness: confusion Eyes: Sclerae: sclerae normal EOM: EOMs intact bilaterally Neck: Neck: Yes no lymphadenopathy, Yes trachea midline and Yes supple Resp: Effort & Inspection: normal respiratory effort and no respiratory distr ess Auscultation: crackles (Diffuse bilateral) Cardio: Rate: regular rate Rhythm: regular rhythm Heart sounds: no gallops, no murmurs and no rubs GI: Palpation (GI): Soft to palpation and Other GI palpation findings present ( Nontender) Auscultation: normal bowel sounds Neuro: General: confusion Extrem: General: Yes no pedal edema, No clubbing and No cyanosis Objective Data Labs CBC & Chem 7: 06/19/21 05:46 06/19/21 05:46 Labs: Laboratory Results - last 24 hr 06/18/21 06/18/21 06/19/21 16:42 21:22 05:46 WBC 10.7 RBC 5.20 Hgb 13.2 Hct 41.2 MCV 79.2 L MCH 25.4 L MCHC 32.0 RDW 14.7 Plt Count 255 MPV 10.5 Immature Gran % (Auto) 1.1 H Neut % (Auto) 84.2 H Lymph % (Auto) 10.8 L [place] % (Auto) 3.2 Eos % (Auto) 0.6 Baso % (Auto) 0.1 Lymph # (Auto) 1.2 [place] # (Auto) 0.3 Eos # (Auto) 0.1 Baso # (Auto) 0.0 Abs Immat Gran (auto) 0.12 H Absolute Neuts (auto) 9.0 H Absolute Nucleated RBC 0.000 Nucleated RBC % (auto) 0.0 VBG pH VBG pCO2 VBG pO2 VBG HCO3 VBG O2 Saturation VBG Base Excess Sodium Potassium Chloride Carbon Dioxide Anion Gap BUN Creatinine Estim Creat Clear Calc Estimated GFR POC Glucose 316 H 238 H Random Glucose Calcium Phosphorus Magnesium Albumin 06/19/21 06/19/21 06/19/21 05:46 05:47 07:25 WBC RBC Hgb Hct MCV MCH MCHC RDW Plt Count MPV Immature Gran % (Auto) Neut % (Auto) Lymph % (Auto) [place] % (Auto) Eos % (Auto) Baso % (Auto) Lymph # (Auto) [place] # (Auto) Eos # (Auto) Baso # (Auto) Abs Immat Gran (auto) Absolute Neuts (auto) Absolute Nucleated RBC Nucleated RBC % (auto) VBG pH 7.44 H VBG pCO2 32 VBG pO2 59 VBG HCO3 22 VBG O2 Saturation 82.0 VBG Base Excess -1.1 Sodium 145 Potassium 4.2 Chloride 112 H Carbon Dioxide 19 L Anion Gap 18 BUN 24 H Creatinine 0.83 Estim Creat Clear Calc 90.8 Estimated GFR > 60 POC Glucose 196 H Random Glucose 195 H Calcium 8.6 Phosphorus 3.8 Magnesium 2.0 Albumin 3.4 L 06/19/21 11:10 WBC RBC Hgb Hct MCV MCH MCHC RDW Plt Count MPV Immature Gran % (Auto) Neut % (Auto) Lymph % (Auto) [place] % (Auto) Eos % (Auto) Baso % (Auto) Lymph # (Auto) [place] # (Auto) Eos # (Auto) Baso # (Auto) Abs Immat Gran (auto) Absolute Neuts (auto) Absolute Nucleated RBC Nucleated RBC % (auto) VBG pH VBG pCO2 VBG pO2 VBG HCO3 VBG O2 Saturation VBG Base Excess Sodium Potassium Chloride Carbon Dioxide Anion Gap BUN Creatinine Estim Creat Clear Calc Estimated GFR POC Glucose 222 H Random Glucose Calcium Phosphorus Magnesium Albumin Microbiology Microbiology Results: Microbiology 06/13/21 07:27 Blood - Venous Blood Culture - Final No growth after 5 days. 06/13/21 07:27 Blood - Venous Blood Culture - Final No growth after 5 days. Quality Stroke Does the patient have a stroke diagnosis?: No VTE Prior VTE?: No VTE Risk Level:: Medical - moderate - high VTE Device Contraindication: Treatment Not Indicated VTE Drug Contraindication: N/A - Med Ordered Progress Note: A&P Assessment and plan (1) Acute respiratory distress syndrome (ARDS) due to COVID-19 virus: Status: Acute Assessment and Plan: Assessment: 66-year-old leads with underlying history of hypertension and diabetes mellitus admitted with dyspnea and hypoxemia secondary to COVID-19 ARDS now requiring noninvasive positive pressure ventilatory support. Plan: Neuro: No requires ketamine drip for anxiety Cardiac: No acute issues. Pulmonary: Acute hypoxic respiratory failure secondary to COVID-19 ARDS now requiring BiPAP support. Overall slowly worsening, may require intubation. Continue to titrate off noninvasive positive pressure ventilatory support as tolerated. Renal: No acute issues. Endo: No acute issues. Underlying diabetes mellitus. GI: No acute issues. ID: COVID 19, continue with dexamethasone and baricitinib. Finished remdesivir. Heme/Onc: No acute issues. Psych: No acute issues. Miscellaneous: No acute issues. Prophylaxis: Heparin, ppi Diet: Regular Critical care time spent: 45 minutes (2) Acute respiratory failure with hypoxemia: Status: Acute (3) Diabetes: Status: Acute (4) HTN (hypertension): Status: Acute (5) Anxiety: Status: Acute
[2021-06-19 16:37] LABS: Glucose, Whole Blood 250 mg/dL (60-115)
[2021-06-19 21:55] LABS: Glucose, Whole Blood 184 mg/dL (60-115)
[2021-06-20] VITALS (30 sets, daily range): BP systolic 128–167; BP diastolic 57–88; PULSE 90–117; RESP 20–42; TEMP 36.5–38; O2SAT 85–118; BMI 35.4
[2021-06-20] MEDS: 0.9 % Sodium Chloride Flush 3 ML SYRINGE IVFLUSH ×3 (00:14→15:25)
[2021-06-20] MEDS: Dextrose 5 % 1,000 ML 50 ML IVCONT ×2 (00:15→17:06)
[2021-06-20] MEDS: Ketamine HCl 500 MG in 0.9 % Sodium Chloride 250 ML 30.45 MG IVCONT ×3 (00:15→17:05)
[2021-06-20] MEDS: Heparin Sodium,Porcine 5,000 UNIT/ML VIAL 5000 UNIT SUBCUT ×3 (04:53→20:32)
[2021-06-20 06:03] LABS: MANUAL DIFF FLAG NO
[2021-06-20] MEDS: Pantoprazole Sodium 40 MG/10 ML VIAL IVPUSH (06:07)
[2021-06-20 06:08] LABS: Basophils Percent Auto 0.1 % (0-2); Eosinophils Percent Auto 0.1 % (0-4); Hemoglobin 13.1 g/dl (12.0-16.0); Imm Gran Abs Auto 0.22 X10*3/uL (0.00-0.03); Imm Gran Pct Auto 1.3 % (0.0-0.4); Lymphocytes Percent Auto 6.1 % (20-40); Mean Corpuscular Hemoglobin 25.5 pg (27.0-33.0); Mean Corpuscular Volume 79.8 fL (80-98); Mean Platelet Volume 10.6 fL (9.4-12.3); Monocytes Absolute Auto 0.5 X10*3/uL (0.1-1.2); Monocytes Percent Auto 3.1 % (2-11); Neutrophils Absolute Auto 14.9 X10*3/uL (2.0-8.3); Neutrophils Percent Auto 89.3 % (45-73); Platelet Count 229 X10*3/uL (160-400); Red Blood Count 5.14 X10*6/uL (4.20-5.50); Red Cell Distribution Width 15.5 % (11.0-16.0); White Blood Count 16.7 X10*3/uL (4.8-10.8)
[2021-06-20 06:08] LABS: VBG Base Excess -4.9 mmol/L; VBG HCO3 18 mmol/L (22-26); VBG pCO2 30 mmHg; VBG pH 7.38 (7.32-7.43); VBG pO2 81 mmHg
[2021-06-20 06:09] LABS: Venous Blood Gas Refer to POC result
[2021-06-20 06:33] LABS: Albumin Level 3.4 g/dL (3.5-5.0); Anion Gap 21 (12-20); Blood Urea Nitrogen 17 mg/dL (9-16); Calcium 8.7 mg/dL (8.4-10.2); Carbon Dioxide 15 mmol/L (22-29); Chloride 113 mmol/L (96-108); Creatinine Clr Calc Pharmacy 83.3; Estimated Glomerular Filt Rate > 60; Glucose Random 233 mg/dL (60-115); Magnesium 2.2 mg/dL (1.6-2.6); Phosphorus 3.7 mg/dL (2.7-4.5); Potassium 4.1 mmol/L (3.3-5.1); Sodium 145 mmol/L (135-145)
[2021-06-20] MEDS: Insulin Lispro 100 UNIT/ML 3 ML VIAL SUBCUT ×4 (07:43→20:55)
[2021-06-20 07:46] LABS: Glucose, Whole Blood 241 mg/dL (60-115)
[2021-06-20] MEDS: dexAMETHasone sod phosphate 4 MG/ML VIAL 6 MG IVPUSH (08:22)
--- NOTE | 2021-06-20 11:10 | P.PNCC_ITS ---
Subjective Subjective Date of Service: 06/20/21 Interval History: 66-year-old aunt with underlying history of diabetes mellitus, hypertension, and GERD. admitted on 06/13/2021 with 1 week of COVID symptoms for worsening hypoxemia to [facility]. Patient has been treated with dexa methasone and remdesivir, her pressure oxygen requirements continued to escalate and she was transferred to intensive care unit on 06/15/2021 for noninvasive positive pressure ventilatory support. She also has been started on Baricitinib. Unfortunately her oxygenation continues to deteriorate slowly. No changes overnight. Continues on ketamine drip. Critical Care Time (minutes): 45 Physical Exam Vital Signs: Vital Signs: Last Vital Signs Temp 99.7 F 06/20/21 09:00 Pulse 106 H 06/20/21 10:00 Resp 38 H 06/20/21 10:00 BP 136/74 06/20/21 10:00 Pulse Ox 91 L 06/20/21 10:00 Body Mass Index 35.4 Const: General: no acute distress, alert, confusion and lethargic ([place]) Orientation/consciousness: confusion and lethargic ([place]) Eyes: Sclerae: sclerae normal EOM: EOMs intact bilaterally Neck: Neck: Yes no lymphadenopathy, Yes trachea midline and Yes supple Resp: Effort & Inspection: normal respiratory effort and no respiratory distress Auscultation: crackles (Diffuse bilateral) Cardio: Rate: tachycardic Rhythm: regular rhythm Heart sounds: no gallops, no murmurs and no rubs GI: Palpation (GI): Soft to palpation and Other GI palpation findings present ( Nontender) Auscultation: normal bowel sounds Neuro: General: confusion Extrem: General: No clubbing, No cyanosis and Yes pedal edema (Trace bilateral) Objective Data Labs CBC & Chem 7: 06/20/21 05:48 06/20/21 05:48 Labs: Laboratory Results - last 24 hr 06/19/21 06/19/21 06/19/21 11:10 16:18 21:34 WBC RBC Hgb Hct MCV MCH MCHC RDW Plt Count MPV Immature Gran % (Auto) Neut % (Auto) Lymph % (Auto) [place] % (Auto) Eos % (Auto) Baso % (Auto) Lymph # (Auto) [place] # (Auto) Eos # (Auto) Baso # (Auto) Abs Immat Gran (auto) Absolute Neuts (auto) Absolute Nucleated RBC Nucleated RBC % (auto) VBG pH VBG pCO2 VBG pO2 VBG HCO3 VBG O2 Saturation VBG Base Excess Sodium Potassium Chloride Carbon Dioxide Anion Gap BUN Creatinine Estim Creat Clear Calc Estimated GFR POC Glucose 222 H 250 H 184 H Random Glucose Calcium Phosphorus Magnesium Albumin 06/20/21 06/20/21 06/20/21 05:48 05:48 06:03 WBC 16.7 H RBC 5.14 Hgb 13.1 Hct 41.0 MCV 79.8 L MCH 25.5 L MCHC 32.0 RDW 15.5 Plt Count 229 MPV 10.6 Immature Gran % (Auto) 1.3 H Neut % (Auto) 89.3 H Lymph % (Auto) 6.1 L [place] % (Auto) 3.1 Eos % (Auto) 0.1 Baso % (Auto) 0.1 Lymph # (Auto) 1.0 L [place] # (Auto) 0.5 Eos # (Auto) 0.0 Baso # (Auto) 0.0 Abs Immat Gran (auto) 0.22 H Absolute Neuts (auto) 14.9 H Absolute Nucleated RBC 0.000 Nucleated RBC % (auto) 0.0 VBG pH 7.38 VBG pCO2 30 VBG pO2 81 VBG HCO3 18 L VBG O2 Saturation 93.0 VBG Base Excess -4.9 Sodium 145 Potassium 4.1 Chloride 113 H Carbon Dioxide 15 L Anion Gap 21 H BUN 17 H Creatinine 0.86 Estim Creat Clear Calc 83.3 Estimated GFR > 60 POC Glucose Random Glucose 233 H Calcium 8.7 Phosphorus 3.7 Magnesium 2.2 Albumin 3.4 L 06/20/21 07:39 WBC RBC Hgb Hct MCV MCH MCHC RDW Plt Count MPV Immature Gran % (Auto) Neut % (Auto) Lymph % (Auto) [place] % (Auto) Eos % (Auto) Baso % (Auto) Lymph # (Auto) [place] # (Auto) Eos # (Auto) Baso # (Auto) Abs Immat Gran (auto) Absolute Neuts (auto) Absolute Nucleated RBC Nucleated RBC % (auto) VBG pH VBG pCO2 VBG pO2 VBG HCO3 VBG O2 Saturation VBG Base Excess Sodium Potassium Chloride Carbon Dioxide Anion Gap BUN Creatinine Estim Creat Clear Calc Estimated GFR POC Glucose 241 H Random Glucose Calcium Phosphorus Magnesium Albumin Microbiology Microbiology Results: Microbiology 06/13/21 07:27 Blood - Venous Blood Culture - Final No growth after 5 days. 06/13/21 07:27 Blood - Venous Blood Culture - Final No growth after 5 days. Quality Stroke Does the patient have a stroke diagnosis?: No VTE Prior VTE?: No VTE Risk Level:: Medical - moderate - high VTE Device Contraindication: Treatment Not Indicated VTE Drug Contraindication: N/A - Med Ordered Progress Note: A&P Assessment and plan (1) Anxiety: Status: Acute Assessment and Plan: Assessment: 66-year-old leads with underlying history of hypertension and diabetes mellitus admitted with dyspnea and hypoxemia secondary to COVID-19 ARDS now requiring noninvasive positive pressure ventilatory support. Plan: Neuro: COVID-19 ARDS related acute encephalopathy, continues on requires ketamine drip. Cardiac: No acute issues. Pulmonary: Acute hypoxic respiratory failure secondary to COVID-19 ARDS now requiring BiPAP support. Continue to titrate off noninvasive positive pressure ventilatory support as tolerated. Renal: No acute issues. Endo: No acute issues. Underlying diabetes mellitus. GI: No acute issues. ID: COVID 19, continue with dexamethasone and baricitinib. Finished remdesivir. Heme/Onc: No acute issues. Psych: No acute issues. Miscellaneous: No acute issues. Prophylaxis: Heparin, ppi Diet: Regular Critical care time spent: 45 minutes (2) Acute respiratory distress syndrome (ARDS) due to COVID-19 virus: Status: Acute (3) Acute respiratory failure with hypoxemia: Status: Acute (4) Diabetes: Status: Acute (5) HTN (hypertension): Status: Acute (6) Encephalopathy due to severe acute respiratory syndrome coronavirus 2 (SARS-CoV-2): Status: Acute
[2021-06-20 11:39] LABS: Glucose, Whole Blood 260 mg/dL (60-115)
--- NOTE | 2021-06-20 13:37 | ECG_ITS ---
Test Reason : RYTHUM CHANGE Blood Pressure : / mmHG Vent. Rate : 169 BPM Atrial Rate : 170 BPM P-R Int : 000 ms QRS Dur : 084 ms QT Int : 296 ms P-R-T Axes : 000 040 038 degrees QTc Int : 496 ms Atrial fibrillation with rapid ventricular response Nonspecific ST and T wave abnormality Abnormal ECG When compared with ECG of 13-JUN-2021 07:09, Atrial fibrillation has replaced Sinus rhythm Vent. rate has increased BY 74 BPM Referred By: Antonio Andersen Electronically Signed By:DIYA PAGAN
[2021-06-20 16:38] LABS: Glucose, Whole Blood 282 mg/dL (60-115)
--- NOTE | 2021-06-20 16:50 | PC.NURSE ---
Temp max 100.2, WBC up to 16.7 - MD aware Orientated to person only, calm & corporative Continued on Ketamine gtt Converted to AFib briefly, HR up to 170's - EKG confirmed Back into Sinus, HR low 100's BP WNL LS dim throughout; Moderate amount of this clear secretions Tolerating Bipap 15/10 100% Fio2 - SpO2 88-91% CXR ordered - see report Abdomen soft, positive bowel sounds Multiple loose incontinent bowel movements Unable to tolerate PO at this time, including medications Continued on D5 @ 50cc/hr POC 200's - Continued on Humalog SS [place] patent, output WNL Redness to nose, barrier dressing applied Bathed, repo q2hr, prevlon system in place, barrier cream applied Family updated by this RN
[2021-06-20 20:41] LABS: Glucose, Whole Blood 236 mg/dL (60-115)
[2021-06-21] VITALS (33 sets, daily range): BP systolic 85–159; BP diastolic 43–88; PULSE 89–124; RESP 24–51; TEMP 36.3–38.4; O2SAT 82–99; BMI 37.5
[2021-06-21] MEDS: 0.9 % Sodium Chloride Flush 3 ML SYRINGE IVFLUSH ×4 (00:21→23:32)
[2021-06-21] MEDS: Ketamine HCl 500 MG in 0.9 % Sodium Chloride 250 ML 30.45 MG IVCONT ×3 (01:11→16:59)
[2021-06-21] MEDS: Heparin Sodium,Porcine 5,000 UNIT/ML VIAL 5000 UNIT SUBCUT ×3 (04:44→19:48)
[2021-06-21] MEDS: Pantoprazole Sodium 40 MG/10 ML VIAL IVPUSH (05:42)
[2021-06-21 05:45] LABS: MANUAL DIFF FLAG NO
[2021-06-21 05:51] LABS: Venous Blood Gas Refer to POC result
[2021-06-21 05:51] LABS: VBG Base Excess -1.2 mmol/L; VBG HCO3 21 mmol/L (22-26); VBG pCO2 28 mmHg; VBG pH 7.47 (7.32-7.43); VBG pO2 181 mmHg
[2021-06-21 06:03] LABS: Albumin Level 3.1 g/dL (3.5-5.0); Anion Gap 18 (12-20); Blood Urea Nitrogen 12 mg/dL (9-16); Calcium 8.4 mg/dL (8.4-10.2); Carbon Dioxide 20 mmol/L (22-29); Chloride 111 mmol/L (96-108); Creatinine Clr Calc Pharmacy 83.3; Estimated Glomerular Filt Rate > 60; Glucose Random 294 mg/dL (60-115); Magnesium 2.2 mg/dL (1.6-2.6); Phosphorus 2.6 mg/dL (2.7-4.5); Potassium 4.2 mmol/L (3.3-5.1); Sodium 145 mmol/L (135-145)
[2021-06-21 06:16] LABS: Basophils Percent Auto 0.1 % (0-2); Eosinophils Percent Auto 0.1 % (0-4); Hematocrit 37.6 % (37-47); Hemoglobin 12.2 g/dl (12.0-16.0); Imm Gran Abs Auto 0.24 X10*3/uL (0.00-0.03); Imm Gran Pct Auto 1.5 % (0.0-0.4); Lymphocytes Absolute Auto 0.8 X10*3/uL (1.2-4.9); Lymphocytes Percent Auto 5.3 % (20-40); Mean Corpuscular HGB Conc 32.4 g/dl (31.0-35.0); Mean Corpuscular Hemoglobin 25.9 pg (27.0-33.0); Mean Corpuscular Volume 79.8 fL (80-98); Mean Platelet Volume 10.5 fL (9.4-12.3); Monocytes Absolute Auto 0.6 X10*3/uL (0.1-1.2); Monocytes Percent Auto 3.6 % (2-11); Neutrophils Percent Auto 89.4 % (45-73); Platelet Count 263 X10*3/uL (160-400); Red Blood Count 4.71 X10*6/uL (4.20-5.50); Red Cell Distribution Width 15.4 % (11.0-16.0); White Blood Count 15.7 X10*3/uL (4.8-10.8)
[2021-06-21 07:43] LABS: Glucose, Whole Blood 301 mg/dL (60-115)
[2021-06-21] MEDS: Insulin Lispro 100 UNIT/ML 3 ML VIAL SUBCUT ×4 (08:28→23:32)
[2021-06-21] MEDS: dexAMETHasone sod phosphate 4 MG/ML VIAL 6 MG IVPUSH (09:00)
[2021-06-21] MEDS: Potassium Phosphate 30 MMOL in 0.9 % Sodium Chloride 500 ML 85 MMOL IV (09:01)
[2021-06-21] MEDS: propofoL 1,000 MG/100 ML VIAL 20.77 MG IVCONT (09:15)
[2021-06-21 09:36] LABS: ABG Base Excess -4.9 mmol/L; ABG HCO3 21 mmol/L (22-26); ABG pCO2 43 mmHg (32-45); ABG pCO2 TC 44 mmHg (32-45); ABG pH 7.29 (7.35-7.45); ABG pH TC 7.28 (7.35-7.45); ABG pO2 53 mmHg (83-108); ABG pO2 TC 55 (83-108)
--- NOTE | 2021-06-21 10:10 | W.PM.CCHP ---
Procedures Date of Service Date of Service: 06/21/21 Central Line Placement Right IJ: Central Line Comments: Right internal jugular triple-lumen central venous catheter emergently placed for vascular access and vasopressor support under ultrasound guidance and usual sterile conditions with no immediate complications. Line position verified on chest x-ray.
--- NOTE | 2021-06-21 10:12 | W.PM.CCHP ---
Procedures Date of Service Date of Service: 06/21/21 Intubation Intubation Comments: Patient emergently intubated for hypoxemia refractory to noninvasive positive pressure ventilatory support with 7.5 cuffed ET tube under glide scope guidance with no immediate complications. ET tube position verified on chest x-ray.
--- NOTE | 2021-06-21 10:14 | PM.CCPN ---
Subjective Subjective Date of Service: 06/21/21 Interval History: ICU day 7 for acute hypoxic respiratory failure, COVID-19 ARDS. 66-year-old aunt with underlying history of diabetes mellitus, hypertension, and GERD. admitted on 06/13/2021 with 1 week of COVID symptoms for worsening hypoxemia to general medical [place]. Patient has been treated with dexamethasone and remdesivir, her pressure oxygen requirements continued to escalate and she was transferred to intensive care unit on 06/15/2021 for noninvasive positive pressure ventilatory support. She also has been started on Baricitinib. Unfortunately her oxygenation continues to deteriorate slowly. And patient required intubation on 06/21/2021. Overnight with further deterioration in oxygenation requiring intubation this morning. Critical Care Time (minutes): 45 Physical Exam Vital Signs: Vital Signs: Last Vital Signs Temp 98 F 06/21/21 08:00 Pulse 118 H 06/21/21 09:00 Resp 40 H 06/21/21 09:00 BP 140/71 H 06/21/21 09:00 Pulse Ox 87 L 06/21/21 09:00 Body Mass Index 37.5 Const: General: no acute distress and other (Sedated on the vent) Eyes: Sclerae: sclerae normal EOM: EOMs intact bilaterally Neck: Neck: Yes no lymphadenopathy, Yes trachea midline and Yes supple Resp: Effort & Inspection: normal respiratory effort and no respiratory distress Auscultation: crackles (Diffuse bilateral) Cardio: Rate: tachycardic Rhythm: regular rhythm Heart sounds: no gallops, no murmurs and no rubs GI: Palpation (GI): Soft to palpation and Other GI palpation findings present ( Nontender) Auscultation: normal bowel sounds Extrem: General: Yes no pedal edema, No clubbing and No cyanosis Objective Data Labs CBC & Chem 7: 06/21/21 05:30 06/21/21 05:30 Labs: Laboratory Results - last 24 hr 06/20/21 06/20/21 06/20/21 11:33 16:25 20:34 WBC RBC Hgb Hct MCV MCH MCHC RDW Plt Count MPV Immature Gran % (Auto) Neut % (Auto) Lymph % (Auto) [place] % (Auto) Eos % (Auto) Baso % (Auto) Lymph # (Auto) [place] # (Auto) Eos # (Auto) Baso # (Auto) Abs Immat Gran (auto) Absolute Neuts (auto) Absolute Nucleated RBC Nucleated RBC % (auto) O2 Saturation ABG pH at Pt Temp ABG pH (Temp Correct) ABG pCO2 at Pt Temp ABG pCO2 (Temp Corrct ABG pO2 at Pt Temp ABG pO2 (Temp Correct ABG HCO3 ABG Base Excess (Actual) VBG pH VBG pCO2 VBG pO2 VBG HCO3 VBG O2 Saturation VBG Base Excess Sodium Potassium Chloride Carbon Dioxide Anion Gap BUN Creatinine Estim Creat Clear Calc Estimated GFR POC Glucose 260 H 282 H 236 H Random Glucose Calcium Phosphorus Magnesium Albumin 06/21/21 06/21/21 06/21/21 05:30 05:30 05:47 WBC 15.7 H RBC 4.71 Hgb 12.2 Hct 37.6 MCV 79.8 L MCH 25.9 L MCHC 32.4 RDW 15.4 Plt Count 263 MPV 10.5 Immature Gran % (Auto) 1.5 H Neut % (Auto) 89.4 H Lymph % (Auto) 5.3 L [place] % (Auto) 3.6 Eos % (Auto) 0.1 Baso % (Auto) 0.1 Lymph # (Auto) 0.8 L [place] # (Auto) 0.6 Eos # (Auto) 0.0 Baso # (Auto) 0.0 Abs Immat Gran (auto) 0.24 H Absolute Neuts (auto) 14.0 H Absolute Nucleated RBC 0.000 Nucleated RBC % (auto) 0.0 O2 Saturation ABG pH at Pt Temp ABG pH (Temp Correct) ABG pCO2 at Pt Temp ABG pCO2 (Temp Corrct ABG pO2 at Pt Temp ABG pO2 (Temp Correct ABG HCO3 ABG Base Excess (Actual) VBG pH 7.47 H VBG pCO2 28 VBG pO2 181 VBG HCO3 21 L VBG O2 Saturation 99.0 VBG Base Excess -1.2 Sodium 145 Potassium 4.2 Chloride 111 H Carbon Dioxide 20 L Anion Gap 18 BUN 12 Creatinine 0.86 Estim Creat Clear Calc 83.3 Estimated GFR > 60 POC Glucose Random Glucose 294 H Calcium 8.4 Phosphorus 2.6 L Magnesium 2.2 Albumin 3.1 L 06/21/21 06/21/21 07:40 09:31 WBC RBC Hgb Hct MCV MCH MCHC RDW Plt Count MPV Immature Gran % (Auto) Neut % (Auto) Lymph % (Auto) [place] % (Auto) Eos % (Auto) Baso % (Auto) Lymph # (Auto) [place] # (Auto) Eos # (Auto) Baso # (Auto) Abs Immat Gran (auto) Absolute Neuts (auto) Absolute Nucleated RBC Nucleated RBC % (auto) O2 Saturation 73.0 ABG pH at Pt Temp 7.29 L ABG pH (Temp Correct) 7.28 L ABG pCO2 at Pt Temp 43 ABG pCO2 (Temp Corrct 44 ABG pO2 at Pt Temp 53 L ABG pO2 (Temp Correct 55 L ABG HCO3 21 L ABG Base Excess (Actual) -4.9 VBG pH VBG pCO2 VBG pO2 VBG HCO3 VBG O2 Saturation VBG Base Excess Sodium Potassium Chloride Carbon Dioxide Anion Gap BUN Creatinine Estim Creat Clear Calc Estimated GFR POC Glucose 301 H Random Glucose Calcium Phosphorus Magnesium Albumin Microbiology Microbiology Results: Microbiology 06/13/21 07:27 Blood - Venous Blood Culture - Final No growth after 5 days. 06/13/21 07:27 Blood - Venous Blood Culture - Final No growth after 5 days. Quality Stroke Does the patient have a stroke diagnosis?: No VTE Prior VTE?: No VTE Risk Level:: Medical - moderate - high VTE Device Contraindication: Treatment Not Indicated VTE Drug Contraindication: N/A - Med Ordered Progress Note: A&P Assessment and plan (1) Encephalopathy due to severe acute respiratory syndrome coronavirus 2 (SARS-CoV-2): Status: Acute (2) Acute respiratory distress syndrome (ARDS) due to COVID-19 virus: Status: Acute (3) Acute respiratory failure with hypoxemia: Status: Acute (4) Diabetes: Status: Acute (5) HTN (hypertension): Status: Acute Assessment and Plan: Assessment: 66-year-old leads with underlying history of hypertension and diabetes mellitus admitted with dyspnea and hypoxemia secondary to COVID-19 ARDS now requiring noninvasive positive pressure ventilatory support. Plan: Neuro: COVID-19 ARDS related acute encephalopathy, requiring sedative drips prior to intubation. Cardiac: No acute issues. Pulmonary: Acute hypoxic respiratory failure secondary to COVID-19 ARDS now requiring ventilatory support. Continue to titrate off ventilatory support as tolerated. Renal: No acute issues. Endo: No acute issues. Underlying diabetes mellitus. GI: No acute issues. ID: COVID [id number], continue with dexamethasone and baricitinib. Finished remdesivir. Heme/Onc: No acute issues. Psych: No acute issues. Miscellaneous: No acute issues. Prophylaxis: Heparin, ppi Diet: Tube feeds Critical care time spent: 60 minutes excluding separately billable procedures
[2021-06-21] MEDS: propofoL 200 MG/20 ML VIAL 150 MG IVPUSH (10:17)
[2021-06-21] MEDS: Cisatracurium Besylate 20 MG/10 ML VIAL IVPUSH (10:17)
[2021-06-21 11:26] LABS: VBG Base Excess -2.3 mmol/L; VBG HCO3 24 mmol/L (22-26); VBG pCO2 51 mmHg; VBG pH 7.28 (7.32-7.43); VBG pO2 67 mmHg
[2021-06-21 11:31] LABS: Glucose, Whole Blood 316 mg/dL (60-115)
[2021-06-21] MEDS: propofoL 1,000 MG/100 ML VIAL 34.62 MG IVCONT ×5 (11:32→23:31)
[2021-06-21 12:02] LABS: Venous Blood Gas Refer to POC result
[2021-06-21] MEDS: Chlorhexidine Gluc Oral Rinse 15 ML MOUTHWASH BUCCAL ×2 (13:17→19:48)
--- NOTE | 2021-06-21 14:51 | MHC.CM.PN ---
Pt continues care in ICU for COVID: presently intubated: family updated on status: CM to follow for finalization of d/c plans: pt will likely need STR following prolonged ICU stay.
[2021-06-21 16:58] LABS: Glucose, Whole Blood 334 mg/dL (60-115)
--- NOTE | 2021-06-21 17:17 | PC.NURSE ---
S/E Temp max 100.6, WBC down to 15.7 Continued on Ketamine gtt @ set rate of 0.5mg Sats maintaining 86-88% at rest w/ Bipap 18/6 100% ; RR maintaining mid 40's Patient intubated at 0930 w/ Propofol 150mg & Nimbex 10mg Started on Propofol gtt and titrated to max rate Started on Nimbex gtt @ set rate of 2mcg for vent synchrony HR bradying down to 50's post intubation - Epi x1 amp administered per MD HR now maintaining 90-100's, sinus, no ectopy R IJ TLC placed - dressing C/D/I - placement confirmed SBP 80's - started on Levophed gtt - SBP trending 100-110 K 4.2, Phos 2.6 - KPhos 30mmol x1 administered LS dim throughout, scant inline secretions #7.5 ETT, 25cm @ lip ; Vent settings: AC 24/500/18/100% - TV 550's 0930 ABGs immediately post intubation: 7.28/44/55/21 ; 1130 VBGs: 7.28/51/67/24 Continued on Baricitnib & Decadron CXR ordered and completed - see report Abdomen soft, absent bowel sounds, moderate loose brown BM x1 OGT placed - placement confirmed ; Tube feeds on hold POC 300's - continued on Humalog SS ; D5 discontinued [place] patent - output 30-50cc/hr Redness to nose from Bipap, no other skin integrity concerns Bathed, repo q2hr, prevlon system and air loss attachment in place Family updated by
[2021-06-21 23:26] LABS: Glucose, Whole Blood 260 mg/dL (60-115)
[2021-06-22] VITALS (38 sets, daily range): BP systolic 92–123; BP diastolic 39–65; PULSE 89–123; RESP 23–31; TEMP 36.6–39.2; O2SAT 78–94; BMI 39.4
[2021-06-22] MEDS: Heparin Sodium,Porcine 5,000 UNIT/ML VIAL 5000 UNIT SUBCUT ×3 (01:48→20:21)
[2021-06-22] MEDS: propofoL 1,000 MG/100 ML VIAL 34.62 MG IVCONT ×9 (01:48→22:50)
[2021-06-22] MEDS: Insulin Lispro 100 UNIT/ML 3 ML VIAL SUBCUT ×3 (04:49→17:33)
[2021-06-22] MEDS: Acetaminophen 325 MG TABLET 650 MG PO (04:54)
[2021-06-22 05:40] LABS: VBG Base Excess -4.5 mmol/L; VBG HCO3 21 mmol/L (22-26); VBG pCO2 39 mmHg; VBG pH 7.33 (7.32-7.43); VBG pO2 53 mmHg
[2021-06-22 05:43] LABS: Glucose, Whole Blood 233 mg/dL (60-115)
[2021-06-22 05:44] LABS: MANUAL DIFF FLAG NO
[2021-06-22 05:49] LABS: Basophils Percent Auto 0.1 % (0-2); Eosinophils Percent Auto 0.3 % (0-4); Hematocrit 35.8 % (37-47); Hemoglobin 11.2 g/dl (12.0-16.0); Imm Gran Abs Auto 0.32 X10*3/uL (0.00-0.03); Lymphocytes Absolute Auto 0.8 X10*3/uL (1.2-4.9); Lymphocytes Percent Auto 5.2 % (20-40); Mean Corpuscular HGB Conc 31.3 g/dl (31.0-35.0); Mean Corpuscular Hemoglobin 25.9 pg (27.0-33.0); Mean Corpuscular Volume 82.9 fL (80-98); Mean Platelet Volume 9.7 fL (9.4-12.3); Monocytes Absolute Auto 0.5 X10*3/uL (0.1-1.2); Monocytes Percent Auto 2.9 % (2-11); NRBC Pct Auto 0.2 /100WBC (0.0-0.2); Neutrophils Absolute Auto 14.1 X10*3/uL (2.0-8.3); Neutrophils Percent Auto 89.5 % (45-73); Platelet Count 274 X10*3/uL (160-400); Red Blood Count 4.32 X10*6/uL (4.20-5.50); Red Cell Distribution Width 16.3 % (11.0-16.0); White Blood Count 15.8 X10*3/uL (4.8-10.8)
[2021-06-22 05:51] LABS: Venous Blood Gas Refer to POC result
[2021-06-22 06:10] LABS: Albumin Level 2.9 g/dL (3.5-5.0); Anion Gap 17 (12-20); Blood Urea Nitrogen 25 mg/dL (9-16); Calcium 8.5 mg/dL (8.4-10.2); Carbon Dioxide 22 mmol/L (22-29); Chloride 110 mmol/L (96-108); Creatinine Clr Calc Pharmacy 29.9; Estimated Glomerular Filt Rate 19; Glucose Random 305 mg/dL (60-115); Magnesium 2.2 mg/dL (1.6-2.6); Phosphorus 5.7 mg/dL (2.7-4.5); Potassium 4.2 mmol/L (3.3-5.1); Sodium 145 mmol/L (135-145)
--- NOTE | 2021-06-22 06:44 | PC.NURSE ---
Shift eval 7p-7a - Patient remains paralyzed - Ketamine drip d/c'ed. HR up to 120's, temp increase to max 102.9. Julio WILSON made aware - order to give tylenol. Tylenol given with little affect. Titrated up levo r/t low map (see mar). Patient no cough or gag r/t paralytic. Decreased peep at start of night from 18 to 14. Attempted to wean O2, but did not tolerate - remains at 100%fio2. 02sat goes to 80's with repositioning / supine - recovers slowly to low 90's. Dr Carrillo aware of temp and heart rate, plan to d/c paralytic. Weaned by half at approx 0630 - see MAR. D/c now - 0658.
[2021-06-22] MEDS: Atorvastatin Calcium 40 MG TABLET PO (07:55)
[2021-06-22] MEDS: Chlorhexidine Gluc Oral Rinse 15 ML MOUTHWASH BUCCAL ×3 (07:55→20:21)
[2021-06-22] MEDS: dexAMETHasone sod phosphate 4 MG/ML VIAL 6 MG IVPUSH (07:55)
[2021-06-22] MEDS: 0.9 % Sodium Chloride Flush 3 ML SYRINGE IVFLUSH (07:56)
[2021-06-22] MEDS: Midazolam HCl/PF 2 MG/2 ML VIAL IVPUSH (09:26)
[2021-06-22] MEDS: Midazolam HCl/NS 50 MG/50 ML PLAST..BAG IVCONT (09:27)
--- NOTE | 2021-06-22 10:04 | MHC.CM.PN ---
PER ROUNDS, PATIENT STILL INTUBATED. NO PLANS FOR DISCHARGE AT THIS TIME
--- NOTE | 2021-06-22 10:34 | MHC.CLN ---
PT IS NOW INTUBATED AND SEDATED RECOMMEND NEPRO AT MAX GOAL RATE 30 ML/HOUR WITH 30 ML OF PROSOURCE ONCE A DAY AND 240CC FREE WATER FLSUHES Q 4HRS TO PROVIDE 780 KCALS (1694KCALS WITH SEDATION; 26 KCALS/KG PER IBW), 47G PROTEIN (.7 G/KG PER IBW) AND 1963ML TOTAL FREE WATER FROM FORMULA AND FLUSHES (30ML/KG) START AT 20 ML/HOUR AND INCREASE BY 10 ML Q 4 HOURS MONITOR TOLERANCE, RESIDUALS AND LYTES SEE ALSO CLINICAL NUTRITION ASSESSMENT
--- NOTE | 2021-06-22 12:37 | PM.CCPN ---
Subjective Subjective Date of Service: 06/22/21 Interval History: 66-year-old female with severe COVID-19 bilateral pneumonitis and ARDS with hypoxemic respiratory failure now intubated for 24 hours still on FiO2 of 100% with acute renal failure and current creatinine 2.5 and right now a non anion gap metabolic acidosis with hyperchloremia and CVP reading is 7 but we have a compensated pH no significant metabolic disarray will watch expectantly and right now if CVP were to rise then will have to decide about dialysis because of the rec was it volume that she is receiving 4 inotropics support as well as sedation Critical Care Time (minutes): 60 Physical Exam Vital Signs: Vital Signs: Last Vital Signs Temp 99.9 F 06/22/21 10:00 Pulse 111 H 06/22/21 11:00 Resp 28 H 06/22/21 11:00 BP 110/52 L 06/22/21 11:00 Pulse Ox 90 L 06/22/21 11:00 Body Mass Index 39.4 She did respond on propofol so we had to add Versed and she is comfortable but we did stop the Nimbex because it was hard to follow without a baseline Has good bilateral carotid upstrokes no bruits no neck vein distension Chest with bilateral coarse ventilatory sounds Abdomen good bowel sounds and soft tolerating feedings Skin intact no livedo Objective Data Labs CBC & Chem 7: 06/22/21 05:25 06/22/21 05:25 Labs: Laboratory Results - last 24 hr 06/21/21 06/21/21 06/22/21 16:55 23:22 04:44 WBC RBC Hgb Hct MCV MCH MCHC RDW Plt Count MPV Immature Gran % (Auto) Neut % (Auto) Lymph % (Auto) [place] % (Auto) Eos % (Auto) Baso % (Auto) Lymph # (Auto) [place] # (Auto) Eos # (Auto) Baso # (Auto) Abs Immat Gran (auto) Absolute Neuts (auto) Absolute Nucleated RBC Nucleated RBC % (auto) VBG pH VBG pCO2 VBG pO2 VBG HCO3 VBG O2 Saturation VBG Base Excess Sodium Potassium Chloride Carbon Dioxide Anion Gap BUN Creatinine Estim Creat Clear Calc Estimated GFR POC Glucose 334 H 260 H 233 H Random Glucose Calcium Phosphorus Magnesium Albumin 06/22/21 06/22/21 06/22/21 05:25 05:25 05:35 WBC 15.8 H RBC 4.32 Hgb 11.2 L Hct 35.8 L MCV 82.9 MCH 25.9 L MCHC 31.3 RDW 16.3 H Plt Count 274 MPV 9.7 Immature Gran % (Auto) 2.0 H Neut % (Auto) 89.5 H Lymph % (Auto) 5.2 L [place] % (Auto) 2.9 Eos % (Auto) 0.3 Baso % (Auto) 0.1 Lymph # (Auto) 0.8 L [place] # (Auto) 0.5 Eos # (Auto) 0.0 Baso # (Auto) 0.0 Abs Immat Gran (auto) 0.32 H Absolute Neuts (auto) 14.1 H Absolute Nucleated RBC 0.030 H Nucleated RBC % (auto) 0.2 VBG pH 7.33 VBG pCO2 39 VBG pO2 53 VBG HCO3 21 L VBG O2 Saturation 78.0 VBG Base Excess -4.5 Sodium 145 Potassium 4.2 Chloride 110 H Carbon Dioxide 22 Anion Gap 17 BUN 25 H D Creatinine 2.47 H Estim Creat Clear Calc 29.9 Estimated GFR 19 POC Glucose Random Glucose 305 H Calcium 8.5 Phosphorus 5.7 H Magnesium 2.2 Albumin 2.9 L Microbiology Microbiology Results: Microbiology 06/13/21 07:27 Blood - Venous Blood Culture - Final No growth after 5 days. 06/13/21 07:27 Blood - Venous Blood Culture - Final No growth after 5 days. Quality Stroke Does the patient have a stroke diagnosis?: No VTE Prior VTE?: No VTE Risk Level:: Medical - moderate - high VTE Device Contraindication: Treatment Not Indicated VTE Drug Contraindication: N/A - Med Ordered Progress Note: A&P Assessment and plan (1) Encephalopathy due to severe acute respiratory syndrome coronavirus 2 (SARS-CoV-2): Status: Acute (2) Acute respiratory distress syndrome (ARDS) due to COVID-19 virus: Status: Acute (3) Acute respiratory failure with hypoxemia: Status: Acute (4) Diabetes: Status: Acute (5) HTN (hypertension): Status: Acute (6) Pneumonia due to 2019 novel coronavirus: Status: Acute (7) Hypoxia: Status: Acute (8) Acute renal failure: Status: Acute Assessment and Plan: At this 0.2 will monitor CVP closely and try to Pare down on all fluid intake as best we can and if CVP were to arise or metabolic acidosis worsen might need to consider dialysis catheter
[2021-06-22 12:53] LABS: Glucose, Whole Blood 330 mg/dL (60-115)
[2021-06-22 16:18] LABS: Anion Gap 17 (12-20); Blood Urea Nitrogen 37 mg/dL (9-16); Calcium 8.2 mg/dL (8.4-10.2); Carbon Dioxide 20 mmol/L (22-29); Chloride 110 mmol/L (96-108); Estimated Glomerular Filt Rate 12; Glucose Random 363 mg/dL (60-115); Potassium 4.1 mmol/L (3.3-5.1); Sodium 143 mmol/L (135-145)
[2021-06-22 16:30] LABS: Venous Blood Gas Refer to POC result
[2021-06-22] MEDS: Furosemide 200 MG in 0.9 % Sodium Chloride 80 ML IVCONT (17:29)
[2021-06-22 18:17] LABS: Glucose, Whole Blood 323 mg/dL (60-115)
--- NOTE | 2021-06-22 18:58 | PC.NURSE ---
Tmax 101.5, VSS on levophed gtt. Sedated on propofol and versed, weak cough/gag, unable to follow commands. LS clear, scant secretions, vent settings; AC 24/500/100%/peep 12 SR/ST on tele, lasix gtt started.Tube feeds started- nepro rate 20ml/hr- MD ok to keep at 20- due to residual. Low U/O- md aware, Medium BM, bath given. repo q2hr, prevalon mattress and airtap.
[2021-06-22] MEDS: Cisatracurium Besylate 20 MG/10 ML VIAL 10 MG IVPUSH (20:55)
[2021-06-22 21:18] LABS: Anion Gap 18 (12-20); Blood Urea Nitrogen 42 mg/dL (9-16); Calcium 8.3 mg/dL (8.4-10.2); Carbon Dioxide 19 mmol/L (22-29); Chloride 109 mmol/L (96-108); Creatinine Clr Calc Pharmacy 17.8; Estimated Glomerular Filt Rate 10; Glucose Random 315 mg/dL (60-115); Potassium 3.8 mmol/L (3.3-5.1); Sodium 142 mmol/L (135-145)
[2021-06-22] MEDS: fentaNYL citrate/NS 1,000 MCG/100 ML PLAST..BAG 5 MCG IVCONT (21:34)
[2021-06-22 23:52] LABS: Glucose, Whole Blood 264 mg/dL (60-115)
[2021-06-23] VITALS (36 sets, daily range): BP systolic 67–142; BP diastolic 39–63; PULSE 60–126; RESP 20–28; TEMP 36.2–39; O2SAT 67–94
[2021-06-23] MEDS: Insulin Lispro 100 UNIT/ML 3 ML VIAL SUBCUT ×4 (00:04→17:48)
[2021-06-23] MEDS: Midazolam HCl/NS 50 MG/50 ML PLAST..BAG IVCONT (00:05)
[2021-06-23] MEDS: Cisatracurium Besylate 20 MG/10 ML VIAL IVPUSH ×4 (01:06→06:54)
[2021-06-23] MEDS: 0.9 % Sodium Chloride Flush 3 ML SYRINGE IVFLUSH ×3 (01:06→14:31)
[2021-06-23] MEDS: propofoL 1,000 MG/100 ML VIAL 34.62 MG IVCONT ×9 (01:39→23:00)
[2021-06-23] MEDS: Heparin Sodium,Porcine 5,000 UNIT/ML VIAL 5000 UNIT SUBCUT ×3 (04:53→20:14)
[2021-06-23 05:24] LABS: VBG Base Excess -7.7 mmol/L; VBG HCO3 17 mmol/L (22-26); VBG pCO2 35 mmHg; VBG pO2 51 mmHg
[2021-06-23 05:25] LABS: Venous Blood Gas Refer to POC result
[2021-06-23 05:32] LABS: MANUAL DIFF FLAG NO
[2021-06-23 05:37] LABS: Basophils Percent Auto 0.1 % (0-2); Eosinophils Absolute Auto 0.3 X10*3/uL (0.0-0.4); Eosinophils Percent Auto 1.7 % (0-4); Hematocrit 34.9 % (37-47); Hemoglobin 10.8 g/dl (12.0-16.0); Imm Gran Abs Auto 0.27 X10*3/uL (0.00-0.03); Imm Gran Pct Auto 1.8 % (0.0-0.4); Lymphocytes Absolute Auto 1.7 X10*3/uL (1.2-4.9); Lymphocytes Percent Auto 11.1 % (20-40); Mean Corpuscular HGB Conc 30.9 g/dl (31.0-35.0); Mean Corpuscular Hemoglobin 25.5 pg (27.0-33.0); Mean Corpuscular Volume 82.3 fL (80-98); Mean Platelet Volume 9.8 fL (9.4-12.3); Monocytes Absolute Auto 0.5 X10*3/uL (0.1-1.2); Monocytes Percent Auto 3.6 % (2-11); NRBC Pct Auto 0.2 /100WBC (0.0-0.2); Neutrophils Absolute Auto 12.4 X10*3/uL (2.0-8.3); Neutrophils Percent Auto 81.7 % (45-73); Platelet Count 240 X10*3/uL (160-400); Red Blood Count 4.24 X10*6/uL (4.20-5.50); Red Cell Distribution Width 16.8 % (11.0-16.0); White Blood Count 15.2 X10*3/uL (4.8-10.8)
[2021-06-23 05:38] LABS: Glucose, Whole Blood 252 mg/dL (60-115)
[2021-06-23 06:07] LABS: Anion Gap 20 (12-20); Blood Urea Nitrogen 50 mg/dL (9-16); Calcium 8.4 mg/dL (8.4-10.2); Carbon Dioxide 18 mmol/L (22-29); Chloride 108 mmol/L (96-108); Glucose Random 273 mg/dL (60-115); Magnesium 2.4 mg/dL (1.6-2.6); Phosphorus 7.5 mg/dL (2.7-4.5); Potassium 4.3 mmol/L (3.3-5.1); Sodium 142 mmol/L (135-145)
[2021-06-23 06:10] LABS: Lactate Dehydrogenase 453 U/L (122-220)
[2021-06-23 06:14] LABS: Creatinine Clr Calc Pharmacy 14.8; Estimated Glomerular Filt Rate 8
[2021-06-23] MEDS: Chlorhexidine Gluc Oral Rinse 15 ML MOUTHWASH BUCCAL ×3 (09:14→20:14)
[2021-06-23] MEDS: dexAMETHasone sod phosphate 4 MG/ML VIAL 6 MG IVPUSH (09:14)
[2021-06-23] MEDS: Atorvastatin Calcium 40 MG TABLET PO (09:14)
[2021-06-23 09:22] LABS: VBG pH 7.33 (7.32-7.43)
[2021-06-23 09:23] LABS: VBG pO2 45 mmHg
--- NOTE | 2021-06-23 10:31 | W.PM.CCHP ---
Procedures Date of Service Date of Service: 06/23/21 Procedure Note Procedure Note: due to progressive renal failure with an urea and a increasing CVP starting at 7 rising to 10 x 6 p.m. last evening and then this morning at about 13-14 clearly progressive hypoxia it is due to contribution from pulmonary edema and creatinine is rising commensurate with a diagnosis of ATN and therefore I placed a triple-lumen 20 centimetre length and 12 [place] dialysis catheter without complication after sterile preparation and draping in the usual fashion and utilizing ultrasound guidance gained easy entry without complication to the left internal jugular vein passing retrograde with Seldinger technique a J tipped guidewire over which the dialysis catheter reach the superior vena cava confirmed on chest x-ray without complication no pneumothorax flushed and sterilely dressed and secured
--- NOTE | 2021-06-23 11:24 | PC.NURSE ---
Addendum entered by Alena Merida RN 06/23/21 13:30: This RN and MD had discussion with HCP regarding patients current status - HCP wants up to continued with FULL code until patients daughter flys in from [place] later today to say goodbye. Addendum entered by Alena Merida RN 06/23/21 12:53: PEEP decreased to 12 by RT per MD. O2 sat down to low 70's. SBP dropping 80's systolic - started on Vasopression at set rate, Levophed titrated per EMAR. MD had discussion w/ HCP Edu. Plan for HCP to come in to have discussion regarding plan of care and code status. Original Note: Bun & Creat 50/5.13 - MD spoke with HCP Moon #[phone]. HCP consented to Dilaysis and catheter placement. L IJ Temp Dilaysis cath placed by Dr Carrillo - placement verified by XRay. O2 sat sitting 86-88% on 100% Fio2 prior to dialysis treatment. Dialysis started at 1045 - O2 sats down to mid 70's and maintaining. BP 92/49 MAP 61, HR 120's sinus, frequent PVCs, Temp 102.2. MD aware and at bedside. Lucus placed outside room. No new orders at this time per MD.
[2021-06-23 11:47] LABS: Glucose, Whole Blood 233 mg/dL (60-115)
[2021-06-23] MEDS: fentaNYL citrate/NS 1,000 MCG/100 ML PLAST..BAG 5 MCG IVCONT (12:11)
[2021-06-23 12:32] LABS: HBsAGNum1 0.17 S/CO (0.00-0.99); Hepatitis B Surface Antigen Negative (Negative)
[2021-06-23 13:02] LABS: HBS Num1 90.83 mIU/mL (0-7.99); ~Hepatitis B Surface Antibody REACTIVE (Nonreactive)
--- NOTE | 2021-06-23 13:50 | PM.CCPN ---
Subjective Subjective Date of Service: 06/23/21 Interval History: 66-year-old female with hypoxemic respiratory failure from COVID-19 pneumonitis/ARDS intubated and on FiO2 of 100% and had progressive oxygen desaturation and as I had noted yesterday a continually rising CVP now up to 14 and apparently he remained an uric with progressive acute renal failure and therefore in need of dialysis and most particularly hemofiltration spoke to healthcare proxy who is her son and obtained permission and then placed a triple-lumen dialysis catheter and although unstable during dialysis hemodynamically requiring addition of vasopressin and also with worsening hypoxemia she tolerated dialysis with 1 L of volume removed Critical Care Time (minutes): 60 Physical Exam Vital Signs: Vital Signs: Last Vital Signs Temp 101.5 F H 06/23/21 13:00 Pulse 105 H 06/23/21 13:00 Resp 20 06/23/21 13:00 BP 87/58 L 06/23/21 13:00 Pulse Ox 79 L 06/23/21 13:00 Body Mass Index 39.4 sedated and intubated CVP currently 8 or 9 with good bilateral carotid upstrokes no resting gallop lungs with coarse bilateral ventilatory sounds abdomen soft positive bowel sounds no organomegaly no livedo no acrocyanosis Objective Data Labs CBC & Chem 7: 06/23/21 05:15 06/23/21 05:15 Labs: Laboratory Results - last 24 hr 06/22/21 06/22/21 06/22/21 15:46 15:47 17:30 WBC RBC Hgb Hct MCV MCH MCHC RDW Plt Count MPV Immature Gran % (Auto) Neut % (Auto) Lymph % (Auto) [place] % (Auto) Eos % (Auto) Baso % (Auto) Lymph # (Auto) [place] # (Auto) Eos # (Auto) Baso # (Auto) Abs Immat Gran (auto) Absolute Neuts (auto) Absolute Nucleated RBC Nucleated RBC % (auto) D-Dimer VBG pH 7.33 VBG pCO2 TNP VBG pO2 45 VBG HCO3 TNP VBG O2 Saturation 69.0 VBG Base Excess TNP Sodium 143 Potassium 4.1 Chloride 110 H Carbon Dioxide 20 L Anion Gap 17 BUN 37 H Creatinine 3.79 H Estim Creat Clear Calc 20.0 Estimated GFR 12 POC Glucose 323 H Random Glucose 363 H* Calcium 8.2 L Phosphorus Magnesium Lactate Dehydrogenase Hep Bs Antigen Hep Bs Antibody 06/22/21 06/22/21 06/23/21 20:42 23:48 05:15 WBC 15.2 H RBC 4.24 Hgb 10.8 L Hct 34.9 L MCV 82.3 MCH 25.5 L MCHC 30.9 L RDW 16.8 H Plt Count 240 MPV 9.8 Immature Gran % (Auto) 1.8 H Neut % (Auto) 81.7 H Lymph % (Auto) 11.1 L [place] % (Auto) 3.6 Eos % (Auto) 1.7 Baso % (Auto) 0.1 Lymph # (Auto) 1.7 [place] # (Auto) 0.5 Eos # (Auto) 0.3 Baso # (Auto) 0.0 Abs Immat Gran (auto) 0.27 H Absolute Neuts (auto) 12.4 H Absolute Nucleated RBC 0.030 H Nucleated RBC % (auto) 0.2 D-Dimer VBG pH VBG pCO2 VBG pO2 VBG HCO3 VBG O2 Saturation VBG Base Excess Sodium 142 Potassium 3.8 Chloride 109 H Carbon Dioxide 19 L Anion Gap 18 BUN 42 H Creatinine 4.27 H* Estim Creat Clear Calc 17.8 Estimated GFR 10 POC Glucose 264 H Random Glucose 315 H Calcium 8.3 L Phosphorus Magnesium Lactate Dehydrogenase Hep Bs Antigen Hep Bs Antibody 06/23/21 06/23/21 06/23/21 05:15 05:15 05:18 WBC RBC Hgb Hct MCV MCH MCHC RDW Plt Count MPV Immature Gran % (Auto) Neut % (Auto) Lymph % (Auto) [place] % (Auto) Eos % (Auto) Baso % (Auto) Lymph # (Auto) [place] # (Auto) Eos # (Auto) Baso # (Auto) Abs Immat Gran (auto) Absolute Neuts (auto) Absolute Nucleated RBC Nucleated RBC % (auto) D-Dimer Cancelled VBG pH 7.30 L VBG pCO2 35 VBG pO2 51 VBG HCO3 17 L VBG O2 Saturation 79.0 VBG Base Excess -7.7 Sodium 142 Potassium 4.3 Chloride 108 Carbon Dioxide 18 L Anion Gap 20 BUN 50 H Creatinine 5.13 H* Estim Creat Clear Calc 14.8 Estimated GFR 8 POC Glucose Random Glucose 273 H Calcium 8.4 Phosphorus 7.5 H Magnesium 2.4 Lactate Dehydrogenase 453 H Hep Bs Antigen Hep Bs Antibody 06/23/21 06/23/21 06/23/21 05:33 11:38 11:43 WBC RBC Hgb Hct MCV MCH MCHC RDW Plt Count MPV Immature Gran % (Auto) Neut % (Auto) Lymph % (Auto) [place] % (Auto) Eos % (Auto) Baso % (Auto) Lymph # (Auto) [place] # (Auto) Eos # (Auto) Baso # (Auto) Abs Immat Gran (auto) Absolute Neuts (auto) Absolute Nucleated RBC Nucleated RBC % (auto) D-Dimer VBG pH VBG pCO2 VBG pO2 VBG HCO3 VBG O2 Saturation VBG Base Excess Sodium Potassium Chloride Carbon Dioxide Anion Gap BUN Creatinine Estim Creat Clear Calc Estimated GFR POC Glucose 252 H 233 H Random Glucose Calcium Phosphorus Magnesium Lactate Dehydrogenase Hep Bs Antigen Negative Hep Bs Antibody REACTIVE Microbiology Microbiology Results: Microbiology 06/13/21 07:27 Blood - Venous Blood Culture - Final No growth after 5 days. 06/13/21 07:27 Blood - Venous Blood Culture - Final No growth after 5 days. Quality Stroke Does the patient have a stroke diagnosis?: No VTE Prior VTE?: No VTE Risk Level:: Medical - moderate - high VTE Device Contraindication: Treatment Not Indicated VTE Drug Contraindication: N/A - Med Ordered Progress Note: A&P Assessment and plan (1) Acute renal failure: Status: Acute (2) Encephalopathy due to severe acute respiratory syndrome coronavirus 2 (SARS-CoV-2): Status: Acute (3) Anxiety: Status: Acute (4) Acute respiratory distress syndrome (ARDS) due to COVID-19 virus: Status: Acute (5) Acute respiratory failure with hypoxemia: Status: Acute (6) Diabetes: Status: Acute (7) HTN (hypertension): Status: Acute (8) Pneumonia due to 2019 novel coronavirus: Status: Acute (9) Hypoxia: Status: Acute Assessment and Plan: of discussed with son by about DNR but wants her but maintain [place] because he is expecting other siblings tonight and will continue to support as we are
--- NOTE | 2021-06-23 14:32 | PM.PNNEP ---
Subjective Subjective Date of Service: 06/23/21 Interval history: Patient seen and examined Consult dictated Physical Exam Vital Signs: Vital Signs: Last Vital Signs Temp 101.7 F H 06/23/21 14:00 Pulse 104 H 06/23/21 14:00 Resp 20 06/23/21 14:00 BP 67/39 L 06/23/21 14:00 Pulse Ox 69 L 06/23/21 14:00 Body Mass Index 39.4 Objective Data Labs CBC & Chem 7: 06/23/21 05:15 06/23/21 05:15 Labs: Laboratory Results - last 24 hr 06/22/21 06/22/21 06/22/21 15:46 15:47 17:30 WBC RBC Hgb Hct MCV MCH MCHC RDW Plt Count MPV Immature Gran % (Auto) Neut % (Auto) Lymph % (Auto) [place] % (Auto) Eos % (Auto) Baso % (Auto) Lymph # (Auto) [place] # (Auto) Eos # (Auto) Baso # (Auto) Abs Immat Gran (auto) Absolute Neuts (auto) Absolute Nucleated RBC Nucleated RBC % (auto) D-Dimer VBG pH 7.33 VBG pCO2 TNP VBG pO2 45 VBG HCO3 TNP VBG O2 Saturation 69.0 VBG Base Excess TNP Sodium 143 Potassium 4.1 Chloride 110 H Carbon Dioxide 20 L Anion Gap 17 BUN 37 H Creatinine 3.79 H Estim Creat Clear Calc 20.0 Estimated GFR 12 POC Glucose 323 H Random Glucose 363 H* Calcium 8.2 L Phosphorus Magnesium Lactate Dehydrogenase Hep Bs Antigen Hep Bs Antibody 06/22/21 06/22/21 06/23/21 20:42 23:48 05:15 WBC 15.2 H RBC 4.24 Hgb 10.8 L Hct 34.9 L MCV 82.3 MCH 25.5 L MCHC 30.9 L RDW 16.8 H Plt Count 240 MPV 9.8 Immature Gran % (Auto) 1.8 H Neut % (Auto) 81.7 H Lymph % (Auto) 11.1 L [place] % (Auto) 3.6 Eos % (Auto) 1.7 Baso % (Auto) 0.1 Lymph # (Auto) 1.7 [place] # (Auto) 0.5 Eos # (Auto) 0.3 Baso # (Auto) 0.0 Abs Immat Gran (auto) 0.27 H Absolute Neuts (auto) 12.4 H Absolute Nucleated RBC 0.030 H Nucleated RBC % (auto) 0.2 D-Dimer VBG pH VBG pCO2 VBG pO2 VBG HCO3 VBG O2 Saturation VBG Base Excess Sodium 142 Potassium 3.8 Chloride 109 H Carbon Dioxide 19 L Anion Gap 18 BUN 42 H Creatinine 4.27 H* Estim Creat Clear Calc 17.8 Estimated GFR 10 POC Glucose 264 H Random Glucose 315 H Calcium 8.3 L Phosphorus Magnesium Lactate Dehydrogenase Hep Bs Antigen Hep Bs Antibody 06/23/21 06/23/21 06/23/21 05:15 05:15 05:18 WBC RBC Hgb Hct MCV MCH MCHC RDW Plt Count MPV Immature Gran % (Auto) Neut % (Auto) Lymph % (Auto) [place] % (Auto) Eos % (Auto) Baso % (Auto) Lymph # (Auto) [place] # (Auto) Eos # (Auto) Baso # (Auto) Abs Immat Gran (auto) Absolute Neuts (auto) Absolute Nucleated RBC Nucleated RBC % (auto) D-Dimer Cancelled VBG pH 7.30 L VBG pCO2 35 VBG pO2 51 VBG HCO3 17 L VBG O2 Saturation 79.0 VBG Base Excess -7.7 Sodium 142 Potassium 4.3 Chloride 108 Carbon Dioxide 18 L Anion Gap 20 BUN 50 H Creatinine 5.13 H* Estim Creat Clear Calc 14.8 Estimated GFR 8 POC Glucose Random Glucose 273 H Calcium 8.4 Phosphorus 7.5 H Magnesium 2.4 Lactate Dehydrogenase 453 H Hep Bs Antigen Hep Bs Antibody 06/23/21 06/23/21 06/23/21 05:33 11:38 11:43 WBC RBC Hgb Hct MCV MCH MCHC RDW Plt Count MPV Immature Gran % (Auto) Neut % (Auto) Lymph % (Auto) [place] % (Auto) Eos % (Auto) Baso % (Auto) Lymph # (Auto) [place] # (Auto) Eos # (Auto) Baso # (Auto) Abs Immat Gran (auto) Absolute Neuts (auto) Absolute Nucleated RBC Nucleated RBC % (auto) D-Dimer VBG pH VBG pCO2 VBG pO2 VBG HCO3 VBG O2 Saturation VBG Base Excess Sodium Potassium Chloride Carbon Dioxide Anion Gap BUN Creatinine Estim Creat Clear Calc Estimated GFR POC Glucose 252 H 233 H Random Glucose Calcium Phosphorus Magnesium Lactate Dehydrogenase Hep Bs Antigen Negative Hep Bs Antibody REACTIVE Microbiology Microbiology Results: Microbiology 06/13/21 07:27 Blood - Venous Blood Culture - Final No growth after 5 days. 06/13/21 07:27 Blood - Venous Blood Culture - Final No growth after 5 days. Procedures Date of Service Date of Service: 06/23/21 Assessment & Plan Assessment and plan (1) KESHAV (acute kidney injury): Status: Acute (2) SARS-CoV-2 positive: Status: Acute (3) Respiratory failure: Status: Acute Assessment and Plan: KESHAV in the setting of SARS COV 2 infection most likely acute tubular injury +/- microvascular thrombi normal baseline creatinine REC HD today optimize volume status daily HD monitor urine output follow kidney function and electrolytes Time Spent With Patient Time: Total time spent is greater than 50% in coordination of care (as documented) at patient's floor/unit and/or counseling patient: Progress Note: Quality Stroke Does the patient have a stroke diagnosis?: No
--- NOTE | 2021-06-23 17:11 | PC.NURSE ---
S/E Temp max 102.0, WBC 15.2 Sedated w/ Propofol gtt, Versed gtt, Fentanyl gtt & Nimbex gtt Unable to obtain baseline train of four d/t prior boluses - MD aware Pupils 2mm, sluggish; absent cough & gag; no pain response SR-ST 90-100's, frequent PVC's - MD aware R IJ TLC patent - dressing C/D/I Generalized edema; Lasix gtt on hold; CVP 8-13 SBP down to 80's - continued on Levophed gtt & titrated per EMAR Vasopressin gtt @ set rate of 0.04units/min started LS dim bilat lower lobes; scant thick cream inline secretions #7.5 ETT, 26cm @ lip; Vent settings changed: AC 20/600/12/100% SpO2 maintaining high 60's-mid 70's - MD aware Okay per MD to turn SpO2 alarms off on monitor Continued of Baricitnib & Decadron CXR completed - see report Abdomen soft, absent bowel sounds Large liquid brown bowel movement; Rectal tube placed Tube feeds off due to paralytic POC 200's - continued on Humalog SS q6 [place] patent; No urine output L IJ Temp dialysis cath placed - placement confirmed Completed first dialysis treatment - 1L removed Redness/brusing/maceration noted; no other skin integrity concerns Bathed, unable to repo q2hr d/t respiratory status, barrier cream applied Family updated regarding patients deteriorating status Awaiting family to arrive tonight to possibly make patient DNR/[employer]ACH[employer] - Nursing sup aware
[2021-06-23 17:40] LABS: Glucose, Whole Blood 233 mg/dL (60-115)
[2021-06-24] VITALS (32 sets, daily range): BP systolic 94–123; BP diastolic 52–67; PULSE 100–126; RESP 20–26; TEMP 37.9–39; O2SAT 72–86
[2021-06-24 00:20] LABS: Glucose, Whole Blood 280 mg/dL (60-115)
[2021-06-24] MEDS: Insulin Lispro 100 UNIT/ML 3 ML VIAL SUBCUT ×4 (00:25→17:31)
[2021-06-24] MEDS: propofoL 1,000 MG/100 ML VIAL 34.62 MG IVCONT ×7 (01:39→22:22)
[2021-06-24] MEDS: Midazolam HCl/NS 50 MG/50 ML PLAST..BAG IVCONT (01:39)
[2021-06-24] MEDS: Heparin Sodium,Porcine 5,000 UNIT/ML VIAL 5000 UNIT SUBCUT ×3 (04:26→19:32)
[2021-06-24 05:34] LABS: VBG Base Excess -12.3 mmol/L; VBG HCO3 14 mmol/L (22-26); VBG pCO2 35 mmHg; VBG pH 7.21 (7.32-7.43); VBG pO2 48 mmHg
[2021-06-24 05:39] LABS: MANUAL DIFF FLAG NO
[2021-06-24 05:44] LABS: Basophils Percent Auto 0.1 % (0-2); Eosinophils Percent Auto 0.1 % (0-4); Hematocrit 34.1 % (37-47); Hemoglobin 10.5 g/dl (12.0-16.0); Imm Gran Abs Auto 0.24 X10*3/uL (0.00-0.03); Imm Gran Pct Auto 1.5 % (0.0-0.4); Lymphocytes Absolute Auto 1.7 X10*3/uL (1.2-4.9); Lymphocytes Percent Auto 10.5 % (20-40); Mean Corpuscular HGB Conc 30.8 g/dl (31.0-35.0); Mean Corpuscular Hemoglobin 25.7 pg (27.0-33.0); Mean Corpuscular Volume 83.6 fL (80-98); Mean Platelet Volume 11.1 fL (9.4-12.3); Monocytes Absolute Auto 0.8 X10*3/uL (0.1-1.2); Monocytes Percent Auto 5.3 % (2-11); NRBC Pct Auto 0.4 /100WBC (0.0-0.2); Neutrophils Absolute Auto 13.1 X10*3/uL (2.0-8.3); Neutrophils Percent Auto 82.5 % (45-73); Platelet Count 215 X10*3/uL (160-400); Red Blood Count 4.08 X10*6/uL (4.20-5.50); Red Cell Distribution Width 16.5 % (11.0-16.0); White Blood Count 15.8 X10*3/uL (4.8-10.8)
[2021-06-24] MEDS: fentaNYL citrate/NS 1,000 MCG/100 ML PLAST..BAG 5 MCG IVCONT ×2 (05:48→22:39)
[2021-06-24 06:06] LABS: Glucose, Whole Blood 306 mg/dL (60-115)
[2021-06-24 06:38] LABS: Albumin Level 2.8 g/dL (3.5-5.0); Anion Gap 27 (12-20); Blood Urea Nitrogen 63 mg/dL (9-16); Carbon Dioxide 16 mmol/L (22-29); Chloride 101 mmol/L (96-108); Creatinine Clr Calc Pharmacy 11.3; Estimated Glomerular Filt Rate 6; Glucose Random 333 mg/dL (60-115); Magnesium 2.5 mg/dL (1.6-2.6); Phosphorus 10.7 mg/dL (2.7-4.5); Potassium 4.9 mmol/L (3.3-5.1); Sodium 139 mmol/L (135-145)
[2021-06-24 06:54] LABS: Venous Blood Gas Refer to POC result
--- NOTE | 2021-06-24 07:20 | PC.NURSE ---
Upon initial assessment- SpO2 72% on 100% FiO2. Pt sedated on propofol/fentanyl/versed. Nimbex running per order for vent synchrony. Pt unresponsive to any stimulation, flaccid. Levophed and vasopressin gtt titrated to maintain MAP > 65. See drug titration. Family arrived to bedside at approx 0100 to see pt and decide code status. After family visited with pt, they voiced concerns regarding medications they had requested to be given upon pt transfer to ICU. Family visually upset and disappointed that requested drugs were not administered. Family states they would a copy of pts medications administered for hospital stay and will call back this AM.
[2021-06-24] MEDS: Chlorhexidine Gluc Oral Rinse 15 ML MOUTHWASH BUCCAL ×3 (07:50→22:38)
[2021-06-24] MEDS: dexAMETHasone sod phosphate 4 MG/ML VIAL 6 MG IVPUSH (07:50)
[2021-06-24] MEDS: 0.9 % Sodium Chloride Flush 3 ML SYRINGE IVFLUSH ×2 (07:50→17:04)
[2021-06-24] MEDS: Atorvastatin Calcium 40 MG TABLET PO (07:50)
--- NOTE | 2021-06-24 10:18 | MHC.CLN ---
F/U TF CURRENTLY ON HOLD PT RECEIVING DAILY HD AND NIMBEX DRIP IF TF NEEDED;RECOMMEND NEPRO AT MAX GOAL RATE 30 ML/HOUR WITH 30 ML OF PROSOURCE ONCE A DAY TO PROVIDE 780 KCALS (1694KCALS WITH SEDATION; 26 KCALS/KG PER IBW), 47G PROTEIN (.7 G/KG PER IBW) AND 523CC FREE WATER FROM FLUSHES START AT 20 ML/HOUR AND INCREASE BY 10 ML Q 4 HOURS MONITOR TOLERANCE, RESIDUALS AND LYTES IF TPN NEEDED; PLEASE CONSULT RD
--- NOTE | 2021-06-24 11:18 | PM.PNNEP ---
Subjective Subjective Date of Service: 06/24/21 Interval history: seen and examined vented discussed with ICU attending Physical Exam Vital Signs: Vital Signs: Last Vital Signs Temp 100.2 F 06/24/21 09:00 Pulse 122 H 06/24/21 11:00 Resp 26 H 06/24/21 11:00 BP 105/60 06/24/21 11:00 Pulse Ox 72 L 06/24/21 11:00 Body Mass Index 39.4 Const: General: ill appearing HENMT: Head: Yes normocephalic and Yes atraumatic Neck: Neck: Yes supple Resp: Auscultation: diminished lung sounds Cardio: Heart sounds: S1 normal heart sound present and S2 normal heart sound present GI: Palpation (GI): Soft to palpation and no guarding Extrem: General: Yes pedal edema Objective Data Labs CBC & Chem 7: 06/24/21 05:16 06/24/21 05:16 Labs: Laboratory Results - last 24 hr 06/23/21 06/23/21 06/23/21 11:38 11:43 17:34 WBC RBC Hgb Hct MCV MCH MCHC RDW Plt Count MPV Immature Gran % (Auto) Neut % (Auto) Lymph % (Auto) [place] % (Auto) Eos % (Auto) Baso % (Auto) Lymph # (Auto) [place] # (Auto) Eos # (Auto) Baso # (Auto) Abs Immat Gran (auto) Absolute Neuts (auto) Absolute Nucleated RBC Nucleated RBC % (auto) VBG pH VBG pCO2 VBG pO2 VBG HCO3 VBG O2 Saturation VBG Base Excess Sodium Potassium Chloride Carbon Dioxide Anion Gap BUN Creatinine Estim Creat Clear Calc Estimated GFR POC Glucose 233 H 233 H Random Glucose Lactic Acid Calcium Phosphorus Magnesium Albumin Hep Bs Antigen Negative Hep Bs Antibody REACTIVE 06/24/21 06/24/21 06/24/21 00:06 05:16 05:16 WBC 15.8 H RBC 4.08 L Hgb 10.5 L Hct 34.1 L MCV 83.6 MCH 25.7 L MCHC 30.8 L RDW 16.5 H Plt Count 215 MPV 11.1 Immature Gran % (Auto) 1.5 H Neut % (Auto) 82.5 H Lymph % (Auto) 10.5 L [place] % (Auto) 5.3 Eos % (Auto) 0.1 Baso % (Auto) 0.1 Lymph # (Auto) 1.7 [place] # (Auto) 0.8 Eos # (Auto) 0.0 Baso # (Auto) 0.0 Abs Immat Gran (auto) 0.24 H Absolute Neuts (auto) 13.1 H Absolute Nucleated RBC 0.070 H Nucleated RBC % (auto) 0.4 H VBG pH VBG pCO2 VBG pO2 VBG HCO3 VBG O2 Saturation VBG Base Excess Sodium 139 Potassium 4.9 Chloride 101 Carbon Dioxide 16 L Anion Gap 27 H BUN 63 H Creatinine 6.68 H* Estim Creat Clear Calc 11.3 Estimated GFR 6 POC Glucose 280 H Random Glucose 333 H Lactic Acid Calcium 8.0 L Phosphorus 10.7 H Magnesium 2.5 Albumin 2.8 L Hep Bs Antigen Hep Bs Antibody 06/24/21 06/24/21 06/24/21 05:27 05:45 07:15 WBC RBC Hgb Hct MCV MCH MCHC RDW Plt Count MPV Immature Gran % (Auto) Neut % (Auto) Lymph % (Auto) [place] % (Auto) Eos % (Auto) Baso % (Auto) Lymph # (Auto) [place] # (Auto) Eos # (Auto) Baso # (Auto) Abs Immat Gran (auto) Absolute Neuts (auto) Absolute Nucleated RBC Nucleated RBC % (auto) VBG pH 7.21 L VBG pCO2 35 VBG pO2 48 VBG HCO3 14 L VBG O2 Saturation 70.0 VBG Base Excess -12.3 Sodium Potassium Chloride Carbon Dioxide Anion Gap BUN Creatinine Estim Creat Clear Calc Estimated GFR POC Glucose 306 H Random Glucose Lactic Acid 2.0 Calcium Phosphorus Magnesium Albumin Hep Bs Antigen Hep Bs Antibody Microbiology Microbiology Results: Microbiology 06/24/21 08:17 Sputum - Suctioned Gram Stain - Final 06/13/21 07:27 Blood - Venous Blood Culture - Final No growth after 5 days. 06/13/21 07:27 Blood - Venous Blood Culture - Final No growth after 5 days. Procedures Date of Service Date of Service: 06/24/21 Assessment & Plan Assessment and plan (1) KESHAV (acute kidney injury): Status: Acute (2) SARS-CoV-2 positive: Status: Acute (3) Respiratory failure: Status: Acute Assessment and Plan: FI02 100% on pressors KESHAV in the setting of SARS COV 2 infection most likely acute tubular injury +/- microvascular thrombi normal baseline creatinine REC HD today optimize volume status continue daily HD monitor urine output follow kidney function and electrolytes Time Spent With Patient Time: Total time spent is greater than 50% in coordination of care (as documented) at patient's floor/unit and/or counseling patient: Progress Note: Quality Stroke Does the patient have a stroke diagnosis?: No
[2021-06-24 11:54] LABS: Glucose, Whole Blood 328 mg/dL (60-115)
--- NOTE | 2021-06-24 13:47 | CONS_ITS ---
DATE OF SERVICE: 06/23/2021 HISTORY OF PRESENT ILLNESS: This is a 66-year-old patient with normal baseline kidney function, who presented with shortness of breath, and who is currently in the intensive care unit requiring mechanical ventilation with worsening kidney function. The patient, who was not vaccinated against COVID-19, presented with fever, chills, cough, headaches, fatigue, diarrhea. At the time of the consultation, she is unable to give any history as she is intubated and had completed her dialysis. She remains hypotensive with systolic blood pressure down to the 80s, requiring high FiO2 of 100%. The patient has had declining urine output and has remained anuric. PAST MEDICAL HISTORY: Remarkable for diabetes mellitus, hypertension, GERD, dyslipidemia. MEDICATIONS: As an outpatient were reviewed and included Januvia, glipizide, hydrochlorothiazide, omeprazole, rosuvastatin. ALLERGIES: SHE IS NOT ALLERGIC TO MEDICATION. SOCIAL HISTORY: She does not smoke. FAMILY HISTORY: Negative. REVIEW OF SYSTEMS: 10-point review of systems, unobtainable. PHYSICAL EXAMINATION: VITAL SIGNS: Blood pressure 87/45, heart rate 104, respiratory rate 20, temperature 101.7. CONSTITUTIONAL: Looks ill, vented. HEAD: Atraumatic, normocephalic. NECK: Supple. LUNGS: Decreased breath sounds. CARDIOVASCULAR: S1, S2. Tachy. ABDOMEN: Soft, nontender. EXTREMITIES: No peripheral edema. LABORATORY DATA: Showed sodium 142, potassium 4.3, chloride 108, CO2 of 18, BUN 50, creatinine 5.13. White count 15.2, hemoglobin 10.8, platelet count 240. Urinalysis with 5 to 9 rbc's, 1 to 4 wbc's, 1+ protein. IMPRESSION: 1. Acute kidney injury. 2. COVID-19 pneumonia. 3. Respiratory failure. This is a patient with acute kidney injury in the setting of SARS-CoV-2 infection, most likely due to an acute tubular injury and possibly microvascular thrombi. She has normal baseline kidney function. Currently, she is requiring high FiO2 of 100% with low oxygen saturation and she is anuric. The plan will be to dialyze her daily to optimize her volume status. We will continue to monitor closely her urine output and kidney function electrolytes. Thank you for allowing me to participate in the care of this patient. MD SERGIO Swenson/KRISTY / [phone]
--- NOTE | 2021-06-24 15:49 | MHC.CM.PN ---
Pt continues on ventilatory support and HD from (unvaccinated) [facility]. O2 sats in the 70's on 100% FiO2: MD to await family conference call for goals of care discussion. CM to follow
--- NOTE | 2021-06-24 16:06 | P.PNCC_ITS ---
Subjective Subjective Date of Service: 06/24/21 Interval History: 66-year-old female with hypoxemic respiratory failure from COVID-19 pneumonitis and ARDS intubated and is continuously been on an FiO2 of 100% and barely maintaining oxygen saturations in the high 70s and also developed acute renal failure for which she is on renal replacement therapy after I had placed in the left internal jugular a dialysis catheter and she has both a positive anion gap metabolic acidosis from her renal failure with with normal lactate as well as likely hypervolemia with elevated CVP and currently be ing dialyzed Surveillance sputum for Gram stain and culture is pending and repeat chest x-ray looks generally more plethoric presumably it is on the basis of the elevated CVP Critical Care Time (minutes): 45 Physical Exam Vital Signs: Vital Signs: Last Vital Signs Temp 101.5 F H 06/24/21 15:00 Pulse 121 H 06/24/21 15:16 Resp 26 H 06/24/21 15:00 BP 115/56 L 06/24/21 15:16 Pulse Ox 78 L 06/24/21 15:00 Body Mass Index 39.4 Sedated and intubated Skin is intact CVP at 13 but good bilateral carotid upstrokes in normal sinus rhythm on 2 pressors including Levophed and vasopressin with blood pressure 100/60 mean of 74 heart rate 120 and oxygen saturation 79% Chest with coarse bilateral ventilatory sounds Abdomen without organomegaly Objective Data Labs CBC & Chem 7: 06/24/21 05:16 06/24/21 05:16 Labs: Laboratory Results - last 24 hr 06/23/21 06/24/21 06/24/21 17:34 00:06 05:16 WBC 15.8 H RBC 4.08 L Hgb 10.5 L Hct 34.1 L MCV 83.6 MCH 25.7 L MCHC 30.8 L RDW 16.5 H Plt Count 215 MPV 11.1 Immature Gran % (Auto) 1.5 H Neut % (Auto) 82.5 H Lymph % (Auto) 10.5 L [place] % (Auto) 5.3 Eos % (Auto) 0.1 Baso % (Auto) 0.1 Lymph # (Auto) 1.7 [place] # (Auto) 0.8 Eos # (Auto) 0.0 Baso # (Auto) 0.0 Abs Immat Gran (auto) 0.24 H Absolute Neuts (auto) 13.1 H Absolute Nucleated RBC 0.070 H Nucleated RBC % (auto) 0.4 H VBG pH VBG pCO2 VBG pO2 VBG HCO3 VBG O2 Saturation VBG Base Excess Sodium Potassium Chloride Carbon Dioxide Anion Gap BUN Creatinine Estim Creat Clear Calc Estimated GFR POC Glucose 233 H 280 H Random Glucose Lactic Acid Calcium Phosphorus Magnesium Albumin 06/24/21 06/24/21 06/24/21 05:16 05:27 05:45 WBC RBC Hgb Hct MCV MCH MCHC RDW Plt Count MPV Immature Gran % (Auto) Neut % (Auto) Lymph % (Auto) [place] % (Auto) Eos % (Auto) Baso % (Auto) Lymph # (Auto) [place] # (Auto) Eos # (Auto) Baso # (Auto) Abs Immat Gran (auto) Absolute Neuts (auto) Absolute Nucleated RBC Nucleated RBC % (auto) VBG pH 7.21 L VBG pCO2 35 VBG pO2 48 VBG HCO3 14 L VBG O2 Saturation 70.0 VBG Base Excess -12.3 Sodium 139 Potassium 4.9 Chloride 101 Carbon Dioxide 16 L Anion Gap 27 H BUN 63 H Creatinine 6.68 H* Estim Creat Clear Calc 11.3 Estimated GFR 6 POC Glucose 306 H Random Glucose 333 H Lactic Acid Calcium 8.0 L Phosphorus 10.7 H Magnesium 2.5 Albumin 2.8 L 06/24/21 06/24/21 07:15 11:49 WBC RBC Hgb Hct MCV MCH MCHC RDW Plt Count MPV Immature Gran % (Auto) Neut % (Auto) Lymph % (Auto) [place] % (Auto) Eos % (Auto) Baso % (Auto) Lymph # (Auto) [place] # (Auto) Eos # (Auto) Baso # (Auto) Abs Immat Gran (auto) Absolute Neuts (auto) Absolute Nucleated RBC Nucleated RBC % (auto) VBG pH VBG pCO2 VBG pO2 VBG HCO3 VBG O2 Saturation VBG Base Excess Sodium Potassium Chloride Carbon Dioxide Anion Gap BUN Creatinine Estim Creat Clear Calc Estimated GFR POC Glucose 328 H Random Glucose Lactic Acid 2.0 Calcium Phosphorus Magnesium Albumin Microbiology Microbiology Results: Microbiology 06/24/21 08:17 Sputum - Suctioned Gram Stain - Final 06/13/21 07:27 Blood - Venous Blood Culture - Final No growth after 5 days. 06/13/21 07:27 Blood - Venous Blood Culture - Final No growth after 5 days. Quality Stroke Does the patient have a stroke diagnosis?: No VTE Prior VTE?: No VTE Risk Level:: Medical - moderate - high VTE Device Contraindication: Treatment Not Indicated VTE Drug Contraindication: N/A - Med Ordered Progress Note: A&P Assessment and plan (1) Respiratory failure: Status: Acute (2) SARS-CoV-2 positive: Status: Acute (3) KESHAV (acute kidney injury): Status: Acute (4) Acute renal failure: Status: Acute (5) Encephalopathy due to severe acute respiratory syndrome coronavirus 2 (SARS-CoV-2): Status: Acute (6) Anxiety: Status: Acute (7) Acute respiratory distress syndrome (ARDS) due to COVID-19 virus: Status: Acute (8) Acute respiratory failure with hypoxemia: Status: Acute (9) Diabetes: Status: Acute (10) HTN (hypertension): Status: Acute (11) Pneumonia due to 2019 novel coronavirus: Status: Acute (12) Hypoxia: Status: Acute Assessment and Plan: Plan is to continue to support full ventilatory as well as renal replacement therapy check surveillance cultures for nosocomial infection
[2021-06-24 17:32] LABS: Glucose, Whole Blood 195 mg/dL (60-115)
[2021-06-24 20:28] LABS: Anion Gap 22 (12-20); Blood Urea Nitrogen 46 mg/dL (9-16); Calcium 7.9 mg/dL (8.4-10.2); Carbon Dioxide 23 mmol/L (22-29); Chloride 99 mmol/L (96-108); Creatinine Clr Calc Pharmacy 13.7; Estimated Glomerular Filt Rate 8; Glucose Random 231 mg/dL (60-115); Phosphorus 9.9 mg/dL (2.7-4.5); Potassium 5.2 mmol/L (3.3-5.1); Sodium 139 mmol/L (135-145)
[2021-06-24] MEDS: Acetaminophen Supp 650 MG SUPP.RECT PR (22:51)
[2021-06-24 23:03] LABS: Glucose, Whole Blood 240 mg/dL (60-115)
[2021-06-25] VITALS (36 sets, daily range): BP systolic 84–126; BP diastolic 45–67; PULSE 93–119; RESP 24–35; TEMP 37.2–38.5; O2SAT 76–89; BMI 40.7
[2021-06-25] MEDS: 0.9 % Sodium Chloride Flush 3 ML SYRINGE IVFLUSH ×3 (00:32→15:23)
[2021-06-25] MEDS: Insulin Lispro 100 UNIT/ML 3 ML VIAL SUBCUT ×3 (00:36→18:15)
[2021-06-25] MEDS: Midazolam HCl/NS 50 MG/50 ML PLAST..BAG IVCONT (02:04)
[2021-06-25] MEDS: Heparin Sodium,Porcine 5,000 UNIT/ML VIAL 5000 UNIT SUBCUT ×3 (02:52→19:45)
[2021-06-25] MEDS: propofoL 1,000 MG/100 ML VIAL 34.62 MG IVCONT ×5 (02:52→22:25)
[2021-06-25 05:34] LABS: VBG Base Excess -7.9 mmol/L; VBG HCO3 19 mmol/L (22-26); VBG pCO2 47 mmHg; VBG pH 7.21 (7.32-7.43); VBG pO2 47 mmHg
--- NOTE | 2021-06-25 05:43 | PC.NURSE ---
Maintained on pressure control vent settings overnight. O2 sats 79-82% on fiO2 of 100%. Desats to 59-60's when care is given and/or pt repositioned. Pt is unresponsive, does not follow commands, no cough or gag reflex noted. Bp stable on levophed and vasopressin drips. Nimbex at a rate of .55 mcg/kg/min for vent control. Three of 4 twitches noted with TOF. CVP 10-11. Monitor shows ST< rate 90's-110, no ectopy.
[2021-06-25 05:48] LABS: Venous Blood Gas Refer to POC result
[2021-06-25 05:55] LABS: Basophils Percent Auto 0.1 % (0-2); Hematocrit 32.5 % (37-47); Hemoglobin 10.3 g/dl (12.0-16.0); Imm Gran Abs Auto 0.19 X10*3/uL (0.00-0.03); Imm Gran Pct Auto 1.2 % (0.0-0.4); Lymphocytes Absolute Auto 1.1 X10*3/uL (1.2-4.9); Lymphocytes Percent Auto 7.2 % (20-40); MANUAL DIFF FLAG NO; Mean Corpuscular HGB Conc 31.7 g/dl (31.0-35.0); Mean Corpuscular Hemoglobin 25.8 pg (27.0-33.0); Mean Corpuscular Volume 81.3 fL (80-98); Mean Platelet Volume 10.7 fL (9.4-12.3); Monocytes Absolute Auto 0.9 X10*3/uL (0.1-1.2); Neutrophils Absolute Auto 13.3 X10*3/uL (2.0-8.3); Neutrophils Percent Auto 85.5 % (45-73); Platelet Count 208 X10*3/uL (160-400); Red Cell Distribution Width 16.4 % (11.0-16.0); White Blood Count 15.5 X10*3/uL (4.8-10.8)
[2021-06-25 05:56] LABS: NRBC Pct Auto 1.2 /100WBC (0.0-0.2)
[2021-06-25 06:03] LABS: Glucose, Whole Blood 240 mg/dL (60-115)
[2021-06-25 06:04] LABS: Albumin Level 2.7 g/dL (3.5-5.0)
[2021-06-25 06:19] LABS: Anion Gap 28 (12-20); Blood Urea Nitrogen 62 mg/dL (9-16); Calcium 7.6 mg/dL (8.4-10.2); Carbon Dioxide 19 mmol/L (22-29); Chloride 98 mmol/L (96-108); Glucose Random 273 mg/dL (60-115); Magnesium 2.5 mg/dL (1.6-2.6); Phosphorus 11.9 mg/dL (2.7-4.5); Potassium 5.6 mmol/L (3.3-5.1); Sodium 139 mmol/L (135-145)
[2021-06-25 06:24] LABS: Creatinine Clr Calc Pharmacy 11.3; Estimated Glomerular Filt Rate 6
[2021-06-25] MEDS: Chlorhexidine Gluc Oral Rinse 15 ML MOUTHWASH BUCCAL ×3 (07:35→20:20)
[2021-06-25] MEDS: dexAMETHasone sod phosphate 4 MG/ML VIAL 5 MG IVPUSH (07:36)
--- NOTE | 2021-06-25 10:06 | MHC.CLN ---
F/U TF REMAINS ON HOLD PT RECEIVING HD NOW AND NIMBEX DRIP TO BE D/C PER MD DISCUSSED AT ROUNDS; PT IS HIGH NUTRITION RISK R/T POOR PO >7DAYS RECOMMEND RESUMPTION OF TF; NEPRO AT MAX GOAL RATE 30 ML/HOUR WITH 30 ML OF PROSOURCE ONCE A DAY TO PROVIDE 780 KCALS (1694KCALS WITH SEDATION; 26 KCALS/KG PER IBW), 47G PROTEIN (.7 G/KG PER IBW) AND 523CC FREE WATER FROM FLUSHES START AT 20 ML/HOUR AND INCREASE BY 10 ML Q 4 HOURS MONITOR TOLERANCE, RESIDUALS AND LYTES IF TPN NEEDED; RECOMMEND [id number] AT 30ML/HR TO PROVIDE 511KCALS, 36G PROTEIN
--- NOTE | 2021-06-25 10:22 | P.PNCC_ITS ---
Subjective Subjective Date of Service: 06/25/21 Interval History: 66-year-old female 4 days intubated for hypoxemic respiratory failure due to COVID-19 pneumonitis with ARDS and had a temperature spike to 102 last night and today's chest x-ray did show some persistent infiltrate left lower lobe but significant clearing of the right lung and this seems to be concurrent with the ago dialysis of the last 2-3 days where a L to a L and a half each day was removed in CVP has come down currently it back at 7 where it started a couple a days ago but peaking at 14-15 for a while she did have a surveillance sputum that was pending along with this chest x-ray result and on the sputum is seems to be growing cramp negative rods with significant white count so therefore will cover this with 1 dose of meropenem and see what comes back in terms of species and sensitivities Oxygen saturations are just an inch better today over yesterday and yesterday they were similarly better than the day before currently 86% oxygen saturation and on pressors vasopressin and Levophed pressure is 100/60 with a mean of 70 heart rate 93 in sinus rhythm but after dialysis yesterday we still have a phosphorus over 11 and it climbing potassium of 5.6 climbing BUN and creatinine so there was a need for today's dialysis and she has a persistent pH of 7.21 hopefully all this will be improved Critical Care Time (minutes): 45 Physical Exam Vital Signs: Vital Signs: Last Vital Signs Temp 99.3 F 06/25/21 10:00 Pulse 93 06/25/21 10:00 Resp 27 H 06/25/21 10:00 BP 106/63 06/25/21 10:00 Pulse Ox 84 L 06/25/21 10:00 Body Mass Index 40.7 Sedated and intubated Skin intact Chest without adventitious sounds Abdomen is benign soft with no organomegaly Cardiac exam with CVP of 7 no gallops and good bilateral carotid upstrokes Objective Data Labs CBC & Chem 7: 06/25/21 05:25 06/25/21 05:25 Labs: Laboratory Results - last 24 hr 06/24/21 06/24/21 06/24/21 11:49 17:21 19:40 WBC RBC Hgb Hct MCV MCH MCHC RDW Plt Count MPV Immature Gran % (Auto) Neut % (Auto) Lymph % (Auto) [place] % (Auto) Eos % (Auto) Baso % (Auto) Lymph # (Auto) [place] # (Auto) Eos # (Auto) Baso # (Auto) Abs Immat Gran (auto) Absolute Neuts (auto) Absolute Nucleated RBC Nucleated RBC % (auto) VBG pH VBG pCO2 VBG pO2 VBG HCO3 VBG O2 Saturation VBG Base Excess Sodium 139 Potassium 5.2 H Chloride 99 Carbon Dioxide 23 Anion Gap 22 H BUN 46 H Creatinine 5.53 H* Estim Creat Clear Calc 13.7 Estimated GFR 8 POC Glucose 328 H 195 H Random Glucose 231 H Calcium 7.9 L Phosphorus 9.9 H Magnesium Albumin 06/24/21 06/25/21 06/25/21 23:00 05:25 05:25 WBC 15.5 H RBC 4.00 L Hgb 10.3 L Hct 32.5 L MCV 81.3 MCH 25.8 L MCHC 31.7 RDW 16.4 H Plt Count 208 MPV 10.7 Immature Gran % (Auto) 1.2 H Neut % (Auto) 85.5 H Lymph % (Auto) 7.2 L [place] % (Auto) 6.0 Eos % (Auto) 0.0 Baso % (Auto) 0.1 Lymph # (Auto) 1.1 L [place] # (Auto) 0.9 Eos # (Auto) 0.0 Baso # (Auto) 0.0 Abs Immat Gran (auto) 0.19 H Absolute Neuts (auto) 13.3 H Absolute Nucleated RBC 0.180 H Nucleated RBC % (auto) 1.2 H VBG pH VBG pCO2 VBG pO2 VBG HCO3 VBG O2 Saturation VBG Base Excess Sodium 139 Potassium 5.6 H Chloride 98 Carbon Dioxide 19 L Anion Gap 28 H BUN 62 H Creatinine 6.81 H* Estim Creat Clear Calc 11.3 Estimated GFR 6 POC Glucose 240 H Random Glucose 273 H Calcium 7.6 L Phosphorus 11.9 H Magnesium 2.5 Albumin 06/25/21 06/25/21 06/25/21 05:25 05:29 05:58 WBC RBC Hgb Hct MCV MCH MCHC RDW Plt Count MPV Immature Gran % (Auto) Neut % (Auto) Lymph % (Auto) [place] % (Auto) Eos % (Auto) Baso % (Auto) Lymph # (Auto) [place] # (Auto) Eos # (Auto) Baso # (Auto) Abs Immat Gran (auto) Absolute Neuts (auto) Absolute Nucleated RBC Nucleated RBC % (auto) VBG pH 7.21 L VBG pCO2 47 VBG pO2 47 VBG HCO3 19 L VBG O2 Saturation 62.0 VBG Base Excess -7.9 Sodium Potassium Chloride Carbon Dioxide Anion Gap BUN Creatinine Estim Creat Clear Calc Estimated GFR POC Glucose 240 H Random Glucose Calcium Phosphorus Magnesium Albumin 2.7 L Microbiology Microbiology Results: Microbiology 06/24/21 08:17 Sputum - Suctioned Gram Stain - Final 06/24/21 08:17 Sputum - Suctioned Sputum Culture - Preliminary Culture in progress. 06/13/21 07:27 Blood - Venous Blood Culture - Final No growth after 5 days. 06/13/21 07:27 Blood - Venous Blood Culture - Final No growth after 5 days. Quality Stroke Does the patient have a stroke diagnosis?: No VTE Prior VTE?: No VTE Risk Level:: Medical - moderate - high VTE Device Contraindication: Treatment Not Indicated VTE Drug Contraindication: N/A - Med Ordered Progress Note: A&P Assessment and plan (1) Respiratory failure: Status: Acute (2) SARS-CoV-2 positive: Status: Acute (3) KESHAV (acute kidney injury): Status: Acute (4) Acute renal failure: Status: Acute (5) Encephalopathy due to severe acute respiratory syndrome coronavirus 2 (SARS -CoV-2): Status: Acute (6) Anxiety: Status: Acute (7) Acute respiratory distress syndrome (ARDS) due to COVID-19 virus: Status: Acute (8) Acute respiratory failure with hypoxemia: Status: Acute (9) Diabetes: Status: Acute (10) HTN (hypertension): Status: Acute (11) Pneumonia due to 2019 novel coronavirus: Status: Acute (12) Hypoxia: Status: Acute Assessment and Plan: Plan is continued support on the ventilator as above dialyze as necessary me know by CVP or by the her metabolic structure and continue to do surveillance cultures if she is able to produce a few cc of urine it might be worth sending off today
[2021-06-25 12:04] LABS: Glucose, Whole Blood 152 mg/dL (60-115)
--- NOTE | 2021-06-25 14:46 | PM.PNNEP ---
Subjective Subjective Date of Service: 06/25/21 Interval history: seen and examined vented had HD earlier Physical Exam Vital Signs: Vital Signs: Last Vital Signs Temp 100.2 F 06/25/21 14:00 Pulse 104 H 06/25/21 14:00 Resp 29 H 06/25/21 14:00 BP 126/67 06/25/21 14:00 Pulse Ox 82 L 06/25/21 14:00 Body Mass Index 40.7 Const: General: ill appearing HENMT: Head: Yes normocephalic and Yes atraumatic Neck: Neck: Yes supple Resp: Auscultation: diminished lung sounds Cardio: Heart sounds: S1 normal heart sound present and S2 normal heart sound present GI: Palpation (GI): Soft to palpation and no guarding Extrem: General: Yes pedal edema Objective Data Labs CBC & Chem 7: 06/25/21 05:25 06/25/21 05:25 Labs: Laboratory Results - last 24 hr 06/24/21 06/24/21 06/24/21 17:21 19:40 23:00 WBC RBC Hgb Hct MCV MCH MCHC RDW Plt Count MPV Immature Gran % (Auto) Neut % (Auto) Lymph % (Auto) [place] % (Auto) Eos % (Auto) Baso % (Auto) Lymph # (Auto) [place] # (Auto) Eos # (Auto) Baso # (Auto) Abs Immat Gran (auto) Absolute Neuts (auto) Absolute Nucleated RBC Nucleated RBC % (auto) VBG pH VBG pCO2 VBG pO2 VBG HCO3 VBG O2 Saturation VBG Base Excess Sodium 139 Potassium 5.2 H Chloride 99 Carbon Dioxide 23 Anion Gap 22 H BUN 46 H Creatinine 5.53 H* Estim Creat Clear Calc 13.7 Estimated GFR 8 POC Glucose 195 H 240 H Random Glucose 231 H Calcium 7.9 L Phosphorus 9.9 H Magnesium Albumin 06/25/21 06/25/21 06/25/21 05:25 05:25 05:25 WBC 15.5 H RBC 4.00 L Hgb 10.3 L Hct 32.5 L MCV 81.3 MCH 25.8 L MCHC 31.7 RDW 16.4 H Plt Count 208 MPV 10.7 Immature Gran % (Auto) 1.2 H Neut % (Auto) 85.5 H Lymph % (Auto) 7.2 L [place] % (Auto) 6.0 Eos % (Auto) 0.0 Baso % (Auto) 0.1 Lymph # (Auto) 1.1 L [place] # (Auto) 0.9 Eos # (Auto) 0.0 Baso # (Auto) 0.0 Abs Immat Gran (auto) 0.19 H Absolute Neuts (auto) 13.3 H Absolute Nucleated RBC 0.180 H Nucleated RBC % (auto) 1.2 H VBG pH VBG pCO2 VBG pO2 VBG HCO3 VBG O2 Saturation VBG Base Excess Sodium 139 Potassium 5.6 H Chloride 98 Carbon Dioxide 19 L Anion Gap 28 H BUN 62 H Creatinine 6.81 H* Estim Creat Clear Calc 11.3 Estimated GFR 6 POC Glucose Random Glucose 273 H Calcium 7.6 L Phosphorus 11.9 H Magnesium 2.5 Albumin 2.7 L 06/25/21 06/25/21 06/25/21 05:29 05:58 11:42 WBC RBC Hgb Hct MCV MCH MCHC RDW Plt Count MPV Immature Gran % (Auto) Neut % (Auto) Lymph % (Auto) [place] % (Auto) Eos % (Auto) Baso % (Auto) Lymph # (Auto) [place] # (Auto) Eos # (Auto) Baso # (Auto) Abs Immat Gran (auto) Absolute Neuts (auto) Absolute Nucleated RBC Nucleated RBC % (auto) VBG pH 7.21 L VBG pCO2 47 VBG pO2 47 VBG HCO3 19 L VBG O2 Saturation 62.0 VBG Base Excess -7.9 Sodium Potassium Chloride Carbon Dioxide Anion Gap BUN Creatinine Estim Creat Clear Calc Estimated GFR POC Glucose 240 H 152 H Random Glucose Calcium Phosphorus Magnesium Albumin Microbiology Microbiology Results: Microbiology 06/24/21 08:17 Sputum - Suctioned Gram Stain - Final 06/24/21 08:17 Sputum - Suctioned Sputum Culture - Preliminary Culture in progress. 06/13/21 07:27 Blood - Venous Blood Culture - Final No growth after 5 days. 06/13/21 07:27 Blood - Venous Blood Culture - Final No growth after 5 days. Procedures Date of Service Date of Service: 06/25/21 Assessment & Plan Assessment and plan (1) KESHAV (acute kidney injury): Status: Acute (2) SARS-CoV-2 positive: Status: Acute (3) Respiratory failure: Status: Acute Assessment and Plan: FI02 100% on pressors KESHAV in the setting of SARS COV 2 infection HD dependent most likely acute tubular injury +/- microvascular thrombi normal baseline creatinine elevated serum potassium due to compromised distal flow high mortality risk given multi organ failure REC HD today with volume optimization continue daily HD monitor urine output follow kidney function and electrolytes Time Spent With Patient Time: Total time spent is greater than 50% in coordination of care (as documented) at patient's floor/unit and/or counseling patient: Progress Note: Quality Stroke Does the patient have a stroke diagnosis?: No
[2021-06-25] MEDS: fentaNYL citrate/NS 1,000 MCG/100 ML PLAST..BAG 7.5 MCG IVCONT (16:43)
[2021-06-25 18:14] LABS: Glucose, Whole Blood 222 mg/dL (60-115)
--- NOTE | 2021-06-25 19:20 | PC.NURSE ---
Assuemed care at 07:00. Patient remains nonresponsive, pupils pinpointed; Nimbex stopped at 10:00, and patient regained cough. 7.5 ETT @25 cm, PC settings Pi:22; Rate 26; Peep 14; FiO2 100%; tachypnea began mostly this afternoon in the 31 range was ok per MD due to gasses are acidotic; in late afternoon increased propofol to 50 from 20 (titration was not documented correctly, was uptitrated from 20 to 50 at 18:00, gradually), fentanyl uptitirated from 50 to 75 early in the day, and then up to 200 gradually from 18:00 to 18:45 due to tachypnea rr 34-5; versed continues at 2. Diminised bases, SPO2 has been 81-88% all day, mostly in 81-83% range, MD aware, SpO2 seemed to increase during dialysis-- 1900 ccs off, 7ccs of brown milky urine. CVP was about 8, down to 7 after. Patient continues on Levophed was 0.25, down to 0.2; Vasopressin was 0.04. sinus rhythm, up to sinus tachycardia in the 110's most of the day. temp down from 100.6 to 99.5, back u0p to 100.2 this evening
[2021-06-25 20:27] LABS: Anion Gap 29 (12-20); Blood Urea Nitrogen 47 mg/dL (9-16); Calcium 7.9 mg/dL (8.4-10.2); Carbon Dioxide 18 mmol/L (22-29); Chloride 99 mmol/L (96-108); Creatinine Clr Calc Pharmacy 14.6; Estimated Glomerular Filt Rate 8; Glucose Random 251 mg/dL (60-115); Phosphorus 9.7 mg/dL (2.7-4.5); Potassium 4.7 mmol/L (3.3-5.1); Sodium 141 mmol/L (135-145)
[2021-06-25 23:55] LABS: Glucose, Whole Blood 214 mg/dL (60-115)
[2021-06-26] VITALS (31 sets, daily range): BP systolic 62–121; BP diastolic 32–63; PULSE 12–119; RESP 24; TEMP 37.8–38.4; O2SAT 47–80; BMI 40.3
[2021-06-26] MEDS: fentaNYL citrate/NS 1,000 MCG/100 ML PLAST..BAG 5 MCG IVCONT ×2 (00:05→19:28)
[2021-06-26] MEDS: Insulin Lispro 100 UNIT/ML 3 ML VIAL SUBCUT ×2 (00:05→05:49)
[2021-06-26] MEDS: Midazolam HCl/NS 50 MG/50 ML PLAST..BAG IVCONT ×2 (00:05→17:23)
[2021-06-26] MEDS: 0.9 % Sodium Chloride Flush 3 ML SYRINGE IVFLUSH ×3 (01:12→15:26)
[2021-06-26] MEDS: propofoL 1,000 MG/100 ML VIAL 34.62 MG IVCONT ×9 (01:12→22:40)
--- NOTE | 2021-06-26 02:55 | PC.NURSE ---
Pt remains on pressure control vent settings with 100% O2. O2 sats 77-80%. Desats with any significant repositioning down to 60%. ETCO2 down to 20. Rate decreased to 24 from 26. ETCO2 krish up to 36-40. Bp stable on levophed which had to be titrated up to 0.3 mcg/kg/min and vasopressin at 0.04. Resp rate was up into the 30's and so Nimbex drip restarted with good effect and resp rate down to 24. propofol, fentanyl and versed as ordered. CVP 9. monitor shows ST, rate 110's, rare PVC noted. No urine output. Labs drawn at 1999. Cr 5.29. Provider Terri aware.
[2021-06-26] MEDS: Heparin Sodium,Porcine 5,000 UNIT/ML VIAL 5000 UNIT SUBCUT ×3 (03:52→19:26)
[2021-06-26] MEDS: Acetaminophen Supp 650 MG SUPP.RECT PR (03:53)
[2021-06-26 05:13] LABS: Glucose, Whole Blood 201 mg/dL (60-115)
[2021-06-26 05:35] LABS: MANUAL DIFF FLAG NO
[2021-06-26 05:39] LABS: Basophils Percent Auto 0.1 % (0-2); Hematocrit 32.4 % (37-47); Hemoglobin 10.5 g/dl (12.0-16.0); Imm Gran Abs Auto 0.31 X10*3/uL (0.00-0.03); Imm Gran Pct Auto 1.7 % (0.0-0.4); Lymphocytes Absolute Auto 1.1 X10*3/uL (1.2-4.9); Lymphocytes Percent Auto 6.1 % (20-40); Mean Corpuscular HGB Conc 32.4 g/dl (31.0-35.0); Mean Corpuscular Hemoglobin 26.6 pg (27.0-33.0); Monocytes Percent Auto 5.2 % (2-11); NRBC Pct Auto 3.2 /100WBC (0.0-0.2); Neutrophils Absolute Auto 16.2 X10*3/uL (2.0-8.3); Neutrophils Percent Auto 86.9 % (45-73); Platelet Count 216 X10*3/uL (160-400); Red Blood Count 3.95 X10*6/uL (4.20-5.50); Red Cell Distribution Width 16.7 % (11.0-16.0); White Blood Count 18.6 X10*3/uL (4.8-10.8)
[2021-06-26 05:54] LABS: Albumin Level 2.8 g/dL (3.5-5.0); Anion Gap 28 (12-20); Blood Urea Nitrogen 59 mg/dL (9-16); Calcium 7.9 mg/dL (8.4-10.2); Carbon Dioxide 19 mmol/L (22-29); Chloride 98 mmol/L (96-108); Glucose Random 230 mg/dL (60-115); Magnesium 2.7 mg/dL (1.6-2.6); Phosphorus 12.5 mg/dL (2.7-4.5); Potassium 5.6 mmol/L (3.3-5.1); Sodium 139 mmol/L (135-145)
[2021-06-26 05:57] LABS: Creatinine Clr Calc Pharmacy 12.2; Estimated Glomerular Filt Rate 7
[2021-06-26 07:53] LABS: VBG Base Excess -12.4 mmol/L; VBG HCO3 16 mmol/L (22-26); VBG pCO2 48 mmHg; VBG pH 7.13 (7.32-7.43); VBG pO2 48 mmHg
[2021-06-26] MEDS: Chlorhexidine Gluc Oral Rinse 15 ML MOUTHWASH BUCCAL ×3 (07:54→19:28)
[2021-06-26] MEDS: Sodium Bicarbonate 8.4% 50 MEQ/50 ML VIAL IVPUSH ×2 (07:57→07:58)
[2021-06-26] MEDS: dexAMETHasone sod phosphate 4 MG/ML VIAL IVPUSH (08:24)
[2021-06-26 08:34] LABS: Venous Blood Gas Refer to POC result
--- NOTE | 2021-06-26 09:24 | MHC.CLN ---
F/U PT INTUBATED SINCE 06/21 PT HAS RECEIVED LITTLE TO NO NUTRITION X 5 DAYS R/T NIMBEX DRIP RECOMMEND STARTING TPN [id number] AT 40ML/HR TO PROVIDE 682KCALS (1596KCALS WITH SEDATION; 24KCALS/KG), 48G PROTEIN (.7G/KG) REPLETE LYTES NEEDED
[2021-06-26 11:15] LABS: VBG Base Excess -12.2 mmol/L; VBG HCO3 15 mmol/L (22-26); VBG pCO2 38 mmHg; VBG pH 7.19 (7.32-7.43); VBG pO2 48 mmHg
[2021-06-26 11:18] LABS: Venous Blood Gas Refer to POC result
[2021-06-26 12:02] LABS: Glucose, Whole Blood 132 mg/dL (60-115)
--- NOTE | 2021-06-26 12:31 | PM.CCPN ---
Subjective Subjective Date of Service: 06/26/21 Interval History: But a her oxygen saturations had been slipping in a despite a relatively unchanged CVP and a disc end and this is with an increasing white count a slightly increasing left shift and I have to suspect nosocomial infection but the only other complication that I cannot prove and at this point because she is not a candidate for any imaging is the possibility of some hypercoagulable mechanism so I [place] [address] units daily and get PTTs and look for at least a 50% increase off the baseline as a result and just cover her empirically because she is in dire straits I spoke to her son who is her healthcare proxy and explained that her saturations now at best are in the 70% range and the fall into the 60s very easily I adjusted her tidal volume her PEEP level which I actually brought down thus I was just concerned when I when I did bedside echo with normal LV function she clearly has significantly dilated right ventricle which is her predominantly failing organ right now and I am just worried that the it is causing hemodynamic compromise exacerbated by the increasing PEEP which could be contributing to pulmonary hypertension Critical Care Time (minutes): 45 Physical Exam Vital Signs: Vital Signs: Last Vital Signs Temp 100.6 F H 06/26/21 11:00 Pulse 112 H 06/26/21 12:00 Resp 24 H 06/26/21 12:00 BP 100/51 L 06/26/21 12:00 Pulse Ox 70 L 06/26/21 12:00 Body Mass Index 40.3 She did resume muscular activity because she was driving the respirator at rates of between 40 and 50 and this is after I took her off the Nimbex so I was happy to see that she was not myopathic but of course it was disruptive in itself she had to be repair a lysed with Nimbex and so she is currently remaining on sedation and Nimbex and we had to increase inotropics support because she still has significant metabolic acidosis but now with a pH of 7.1 so I think that was contributing to dysfunction and then all of a sudden her QRS widened so we had to go through that the in a manipulation on the ventilator had a give her bicarb I had to increase on inotropics support and after this was all performed about the narrowed half 2 hours later her pH was 7.19 and I am hoping that if we increase the bicarb in her dialysate and that will be able to bring her pH at least up into the 7 to of or greater range But given they the the implication of a dismal prognosis I really and had a discussion with the son and at least asked the adeno for DNR because a it would clearly be futile and at and I think a a a punishing to her to try to resuscitate something that is already on maximum support it with definitely reflect right ventricular failure and or infarct in will not be resuscitated will Chest x-ray shows both lungs expanded no pneumothorax no new infiltrate Cardiac exam by bedside echo as I mentioned predominant right heart failure No livedo no acrocyanosis and skin is otherwise intact Objective Data Labs CBC & Chem 7: 06/26/21 05:17 06/26/21 05:17 Labs: Laboratory Results - last 24 hr 06/25/21 06/25/21 06/25/21 18:09 19:48 23:51 WBC RBC Hgb Hct MCV MCH MCHC RDW Plt Count MPV Immature Gran % (Auto) Neut % (Auto) Lymph % (Auto) [place] % (Auto) Eos % (Auto) Baso % (Auto) Lymph # (Auto) [place] # (Auto) Eos # (Auto) Baso # (Auto) Abs Immat Gran (auto) Absolute Neuts (auto) Absolute Nucleated RBC Nucleated RBC % (auto) VBG pH VBG pCO2 VBG pO2 VBG HCO3 VBG O2 Saturation VBG Base Excess Sodium 141 Potassium 4.7 Chloride 99 Carbon Dioxide 18 L Anion Gap 29 H BUN 47 H Creatinine 5.29 H* Estim Creat Clear Calc 14.6 Estimated GFR 8 POC Glucose 222 H 214 H Random Glucose 251 H Calcium 7.9 L Phosphorus 9.7 H Magnesium Albumin 06/26/21 06/26/21 06/26/21 05:10 05:17 05:17 WBC 18.6 H RBC 3.95 L Hgb 10.5 L Hct 32.4 L MCV 82.0 MCH 26.6 L MCHC 32.4 RDW 16.7 H Plt Count 216 MPV 11.0 Immature Gran % (Auto) 1.7 H Neut % (Auto) 86.9 H Lymph % (Auto) 6.1 L [place] % (Auto) 5.2 Eos % (Auto) 0.0 Baso % (Auto) 0.1 Lymph # (Auto) 1.1 L [place] # (Auto) 1.0 Eos # (Auto) 0.0 Baso # (Auto) 0.0 Abs Immat Gran (auto) 0.31 H Absolute Neuts (auto) 16.2 H Absolute Nucleated RBC 0.590 H Nucleated RBC % (auto) 3.2 H VBG pH VBG pCO2 VBG pO2 VBG HCO3 VBG O2 Saturation VBG Base Excess Sodium Potassium Chloride Carbon Dioxide Anion Gap BUN Creatinine Estim Creat Clear Calc Estimated GFR POC Glucose 201 H Random Glucose Calcium Phosphorus Magnesium Albumin Cancelled 06/26/21 06/26/21 06/26/21 05:17 05:22 10:24 WBC RBC Hgb Hct MCV MCH MCHC RDW Plt Count MPV Immature Gran % (Auto) Neut % (Auto) Lymph % (Auto) [place] % (Auto) Eos % (Auto) Baso % (Auto) Lymph # (Auto) [place] # (Auto) Eos # (Auto) Baso # (Auto) Abs Immat Gran (auto) Absolute Neuts (auto) Absolute Nucleated RBC Nucleated RBC % (auto) VBG pH 7.13 L* 7.19 L* VBG pCO2 48 38 VBG pO2 48 48 VBG HCO3 16 L 15 L VBG O2 Saturation 59.0 62.0 VBG Base Excess -12.4 -12.2 Sodium 139 Potassium 5.6 H Chloride 98 Carbon Dioxide 19 L Anion Gap 28 H BUN 59 H Creatinine 6.25 H* Estim Creat Clear Calc 12.2 Estimated GFR 7 POC Glucose Random Glucose 230 H Calcium 7.9 L Phosphorus 12.5 H Magnesium 2.7 H Albumin 2.8 L 06/26/21 11:58 WBC RBC Hgb Hct MCV MCH MCHC RDW Plt Count MPV Immature Gran % (Auto) Neut % (Auto) Lymph % (Auto) [place] % (Auto) Eos % (Auto) Baso % (Auto) Lymph # (Auto) [place] # (Auto) Eos # (Auto) Baso # (Auto) Abs Immat Gran (auto) Absolute Neuts (auto) Absolute Nucleated RBC Nucleated RBC % (auto) VBG pH VBG pCO2 VBG pO2 VBG HCO3 VBG O2 Saturation VBG Base Excess Sodium Potassium Chloride Carbon Dioxide Anion Gap BUN Creatinine Estim Creat Clear Calc Estimated GFR POC Glucose 132 H Random Glucose Calcium Phosphorus Magnesium Albumin Microbiology Microbiology Results: Microbiology 06/24/21 08:17 Sputum - Suctioned Gram Stain - Final 06/24/21 08:17 Sputum - Suctioned Sputum Culture - Preliminary Gram negative beni 06/13/21 07:27 Blood - Venous Blood Culture - Final No growth after 5 days. 06/13/21 07:27 Blood - Venous Blood Culture - Final No growth after 5 days. Quality Stroke Does the patient have a stroke diagnosis?: No VTE Prior VTE?: No VTE Risk Level:: Medical - moderate - high VTE Device Contraindication: Treatment Not Indicated VTE Drug Contraindication: N/A - Med Ordered Progress Note: A&P Assessment and plan (1) Respiratory failure: Status: Acute (2) SARS-CoV-2 positive: Status: Acute (3) KESHAV (acute kidney injury): Status: Acute (4) Acute renal failure: Status: Acute (5) Encephalopathy due to severe acute respiratory syndrome coronavirus 2 (SARS-CoV-2): Status: Acute (6) Anxiety: Status: Acute (7) Acute respiratory distress syndrome (ARDS) due to COVID-19 virus: Status: Acute (8) Acute respiratory failure with hypoxemia: Status: Acute (9) Diabetes: Status: Acute (10) HTN (hypertension): Status: Acute (11) Pneumonia due to 2019 novel coronavirus: Status: Acute (12) Hypoxia: Status: Acute (13) Ventilator associated pneumonia: Status: Acute Assessment and Plan: So right now she is on meropenem [place] [address] units and following PTT and after dialysis if she tolerates it hemodynamically will repeat her blood work and I will probably give her at least 1 dose of Levaquin which lasts for 48 hours or at least until after next dialysis
[2021-06-26 13:08] LABS: PTT Heparin Drip 25.2 SEC (53-77.9)
--- NOTE | 2021-06-26 14:57 | PM.PNNEP ---
Subjective Subjective Date of Service: 06/26/21 Interval history: seen and examined vented events reviewed discussed with ICU attending Physical Exam Vital Signs: Vital Signs: Last Vital Signs Temp 100.6 F H 06/26/21 14:00 Pulse 12 L 06/26/21 14:00 Resp 24 H 06/26/21 14:00 BP 106/48 L 06/26/21 14:00 Pulse Ox 65 L 06/26/21 14:00 Body Mass Index 40.3 Const: General: ill appearing HENMT: Head: Yes normocephalic and Yes atraumatic Neck: Neck: Yes supple Resp: Auscultation: diminished lung sounds Cardio: Heart sounds: S1 normal heart sound present and S2 normal heart sound present GI: Palpation (GI): Soft to palpation and no guarding Extrem: General: Yes pedal edema Objective Data Labs CBC & Chem 7: 06/26/21 05:17 06/26/21 05:17 Labs: Laboratory Results - last 24 hr 06/25/21 06/25/21 06/25/21 18:09 19:48 23:51 WBC RBC Hgb Hct MCV MCH MCHC RDW Plt Count MPV Immature Gran % (Auto) Neut % (Auto) Lymph % (Auto) [place] % (Auto) Eos % (Auto) Baso % (Auto) Lymph # (Auto) [place] # (Auto) Eos # (Auto) Baso # (Auto) Abs Immat Gran (auto) Absolute Neuts (auto) Absolute Nucleated RBC Nucleated RBC % (auto) PTT (Heparin Protocol) VBG pH VBG pCO2 VBG pO2 VBG HCO3 VBG O2 Saturation VBG Base Excess Sodium 141 Potassium 4.7 Chloride 99 Carbon Dioxide 18 L Anion Gap 29 H BUN 47 H Creatinine 5.29 H* Estim Creat Clear Calc 14.6 Estimated GFR 8 POC Glucose 222 H 214 H Random Glucose 251 H Calcium 7.9 L Phosphorus 9.7 H Magnesium Albumin 06/26/21 06/26/21 06/26/21 05:10 05:17 05:17 WBC 18.6 H RBC 3.95 L Hgb 10.5 L Hct 32.4 L MCV 82.0 MCH 26.6 L MCHC 32.4 RDW 16.7 H Plt Count 216 MPV 11.0 Immature Gran % (Auto) 1.7 H Neut % (Auto) 86.9 H Lymph % (Auto) 6.1 L [place] % (Auto) 5.2 Eos % (Auto) 0.0 Baso % (Auto) 0.1 Lymph # (Auto) 1.1 L [place] # (Auto) 1.0 Eos # (Auto) 0.0 Baso # (Auto) 0.0 Abs Immat Gran (auto) 0.31 H Absolute Neuts (auto) 16.2 H Absolute Nucleated RBC 0.590 H Nucleated RBC % (auto) 3.2 H PTT (Heparin Protocol) VBG pH VBG pCO2 VBG pO2 VBG HCO3 VBG O2 Saturation VBG Base Excess Sodium Potassium Chloride Carbon Dioxide Anion Gap BUN Creatinine Estim Creat Clear Calc Estimated GFR POC Glucose 201 H Random Glucose Calcium Phosphorus Magnesium Albumin Cancelled 06/26/21 06/26/21 06/26/21 05:17 05:22 10:24 WBC RBC Hgb Hct MCV MCH MCHC RDW Plt Count MPV Immature Gran % (Auto) Neut % (Auto) Lymph % (Auto) [place] % (Auto) Eos % (Auto) Baso % (Auto) Lymph # (Auto) [place] # (Auto) Eos # (Auto) Baso # (Auto) Abs Immat Gran (auto) Absolute Neuts (auto) Absolute Nucleated RBC Nucleated RBC % (auto) PTT (Heparin Protocol) VBG pH 7.13 L* 7.19 L* VBG pCO2 48 38 VBG pO2 48 48 VBG HCO3 16 L 15 L VBG O2 Saturation 59.0 62.0 VBG Base Excess -12.4 -12.2 Sodium 139 Potassium 5.6 H Chloride 98 Carbon Dioxide 19 L Anion Gap 28 H BUN 59 H Creatinine 6.25 H* Estim Creat Clear Calc 12.2 Estimated GFR 7 POC Glucose Random Glucose 230 H Calcium 7.9 L Phosphorus 12.5 H Magnesium 2.7 H Albumin 2.8 L 06/26/21 06/26/21 11:58 12:38 WBC RBC Hgb Hct MCV MCH MCHC RDW Plt Count MPV Immature Gran % (Auto) Neut % (Auto) Lymph % (Auto) [place] % (Auto) Eos % (Auto) Baso % (Auto) Lymph # (Auto) [place] # (Auto) Eos # (Auto) Baso # (Auto) Abs Immat Gran (auto) Absolute Neuts (auto) Absolute Nucleated RBC Nucleated RBC % (auto) PTT (Heparin Protocol) 25.2 L VBG pH VBG pCO2 VBG pO2 VBG HCO3 VBG O2 Saturation VBG Base Excess Sodium Potassium Chloride Carbon Dioxide Anion Gap BUN Creatinine Estim Creat Clear Calc Estimated GFR POC Glucose 132 H Random Glucose Calcium Phosphorus Magnesium Albumin Microbiology Microbiology Results: Microbiology 06/24/21 08:17 Sputum - Suctioned Gram Stain - Final 06/24/21 08:17 Sputum - Suctioned Sputum Culture - Preliminary Gram negative beni 06/13/21 07:27 Blood - Venous Blood Culture - Final No growth after 5 days. 06/13/21 07:27 Blood - Venous Blood Culture - Final No growth after 5 days. Procedures Date of Service Date of Service: 06/26/21 Assessment & Plan Assessment and plan (1) KESHAV (acute kidney injury): Status: Acute (2) SARS-CoV-2 positive: Status: Acute (3) Respiratory failure: Status: Acute Assessment and Plan: FI02 100% with poor O2 saturation n the 60s on pressors oligoanuric KESHAV in the setting of SARS COV 2 infection HD dependent most likely acute tubular injury +/- microvascular thrombi normal baseline creatinine elevated serum potassium due to compromised distal flow very high mortality risk given multi organ failure REC dialysis unlikely to change poor outcome PROTOCOL MANAGER Time Spent With Patient Time: Total time spent is greater than 50% in coordination of care (as documented) at patient's floor/unit and/or counseling patient: Progress Note: Quality Stroke Does the patient have a stroke diagnosis?: No
[2021-06-26 16:08] LABS: Venous Blood Gas Refer to POC result
[2021-06-26 16:12] LABS: VBG Base Excess -19.2 mmol/L; VBG HCO3 10 mmol/L (22-26); VBG pCO2 34 mmHg; VBG pH 7.05 (7.32-7.43); VBG pO2 54 mmHg
[2021-06-26 17:04] LABS: Creatinine Clr Calc Pharmacy 11.1; Estimated Glomerular Filt Rate 6
[2021-06-26 17:24] LABS: Sodium 142 mmol/L (135-145)
[2021-06-26 17:25] LABS: Carbon Dioxide 9 mmol/L (22-29); Chloride 99 mmol/L (96-108); Potassium 6.3 mmol/L (3.3-5.1)
[2021-06-26 17:26] LABS: Anion Gap 40 (12-20); Blood Urea Nitrogen 68 mg/dL (9-16)
[2021-06-26 17:27] LABS: Glucose Random 95 mg/dL (60-115)
[2021-06-26 17:28] LABS: Calcium 7.4 mg/dL (8.4-10.2)
[2021-06-26 18:23] LABS: Glucose, Whole Blood 66 mg/dL (60-115)
--- NOTE | 2021-06-26 18:33 | PC.NURSE ---
Remains intubated and sedated on Fentanyl, Propofol and Versed with Nimbex also on board for vent compliance. BP sustained on Levophed and Vasopressin. Obvious drop in BP with any change of bags. SpO2 on 100% FiO2 78 down to 51% but has leveled off in the low 60s. Bicarb levels low, MD aware. Potassium and creatinine levels also low provider aware. Son updated, patient remains Full Code. Low grade temps, ST with widening QRS complexes.
[2021-06-27 00:01] VITALS: BP 108/58; PULSE 105; O2SAT 63
[2021-06-27] MEDS: 0.9 % Sodium Chloride Flush 3 ML SYRINGE IVFLUSH (00:36)
--- NOTE | 2021-06-27 01:27 | PM.CCN ---
Critical Care Event Note Summary Date of Service: 06/27/21 Code activated: Yes Narrative: This case had a high probability of a clinically significant, sudden, or life threatening deterioration of this patient's condition which required my full and direct attention, intervention and personal management. Critical Care Time (minutes): 30 Comment: Patient condition has been deteriorating in the past few days, she has been? profoundly hypoxic, but the family wanted? for her to be full code. ? At 12:55 a.m.? patient? PEA cardiac arrest, CPR was initiated and followed ACLS protocol (See Code sheet).? After? approximately 25 minutes of CPR,? with? on and off? return of spontaneous circulation, Resuscitation efforts stopped at 0117? and patient pronounced . Nursing will notified organ donation. Not ME case.? Son/ HCP Parker contacted and informed of patients passing. Cardiopulmonary resuscitation Acute respiratory failure related to COVID ARDS
--- NOTE | 2021-06-27 01:38 | PC.NURSE ---
At approx 0055, HR dropped to 50s, PEA on monitor. Code blue initiated, see paper documentation. Time of 0015. Organ bank notified, see documentation. Family to be called by ELEMENT[employer] READING SPECIALIST.
--- NOTE | 2021-06-27 02:34 | P.DN_ITS ---
Discharge Sum: Prov Provider Primary care physician: AKTIE Kulkarni <Kian Rodriguez MANAGER SEARCH ENGINE - Last Filed: 06/27/21 02:50> Admitting clinician: Sukumar Faye <Kian Rodriguez MANAGER SEARCH ENGINE - Last Filed: 06/27/21 02:50> Attending physician on admission: Sukumar Faye <Kian Rodriguez MANAGER SEARCH ENGINE - Last Filed: 06/27/21 02:50> Consults: 06/14/21 13:34 Consult to Infectious Diseases Routine Consulting Provider: Janis Ruiz Reason for consultation: Covid pneumonia 06/23/21 06:17 Consult to Nephrology Routine Consulting Provider: Giuliana Rodriguez Reason for consultation: KESHAV/anuria and fluid overload Has provider been notified: Yes 06/25/21 07:06 Consult to Infectious Diseases Routine Consulting Provider: Janis Ruiz Reason for consultation: MEROPENEM <Kian Rodriguez MANAGER SEARCH ENGINE - Last Filed: 06/27/21 02:50> Pronouncing clinician: Tarun Carrillo <Kian Rodriguez MANAGER SEARCH ENGINE - Last Filed: 06/27/21 02:50> Discharge Sum: Diag PCOD Cause of : Cardiopulmonary arrest <Kian Rodriguez MANAGER SEARCH ENGINE - Last Filed: 06/27/21 02:50> Contributing Factors (1) Cardiopulmonary arrest: (2) Acute respiratory distress syndrome (ARDS) due to COVID-19 virus: (3) Pneumonia due to 2019 novel coronavirus: (4) Renal failure: (5) KESHAV (acute kidney injury): Discharge Sum: Summary Date and Time Date of admission: 06/13/21 11:34 <Kian Rodriguez, MANAGER SEARCH ENGINE - Last Filed: 06/27/21 02:50> Date of : 06/27/21 <Kian Rodriguez MANAGER SEARCH ENGINE - Last Filed: 06/27/21 02:50> Time of : 01:17 <Kian Rodriguez MANAGER SEARCH ENGINE - Last Filed: 06/27/21 02:50> Summary Details: 66-year-old female with underlying history of diabetes mellitus, hyper tension, and GERD. admitted on 06/13/2021 with 1 week of COVID symptoms for worsening hypoxemia to hospital medicine.? Patient has been treated with dexamethasone and remdesivir, her pressure oxygen requirements continued to escalate and she was transferred to intensive care unit on 06/15/2021 for noninvasive positive pressure ventilatory support.? She was started on Baricitinib upon ICU transfer.?? She? required? intubation on 06/21/2021? for worsening hypoxemia.? Renal function was compromised from COVID-19,? requiring dialysis catheter and initiation of daily? dialysis on 06/23/21.? Starting 06/22/2021 Patient respiratory status also worsening despite being on? max ventilatory support,? with saturations 70s to 60s.? Multiple conversations held with healthcare proxy and family? explaining? poor prognosis and futility? but they wanted patient to continue to be full code.? On 06/27/21,? patient cardiopulmonary arrest? and resuscitation efforts stopped at 1:17 a.m.? (see event note).? <Kian Rodriguez NP - Last Filed: 06/27/21 02:50> Additional Data Confirmation of as documented by pronouncing clinician: no pulse, no respirations, no heart sounds and pupils fixed and dilated <Kian Rodriguez NP - Last Filed: 06/27/21 02:50> Family: contacted (Son via phone) <Kian Rodriguez NP - Last Filed: 06/27/21 02:50> Attending/PCP notified?: Yes <Kian Rodriguez NP - Last Filed: 06/27/21 02:50> Attending physician: Tarun Carrillo MD <Kian Rodriguez NP - Last Filed: 06/27/21 02:50> Was code activated?: Yes <Kian Rodriguez NP - Last Filed: 06/27/21 02:50> Autopsy requested?: No <Kian Rodriguez NP - Last Filed: 06/27/21 02:50> cone examiner notified?: No (Natural) <Kian Rodriguez NP - Last Filed: 06/27/21 02:50> Organ bank notified?: Yes (Nursing staff) <Kian Rodriguez NP - Last Filed: 06/27/21 02:50> Advance directives: No <Kian Rodriguez NP - Last Filed: 06/27/21 02:50> Hospice patient?: No <Kian Rodriguez NP - Last Filed: 06/27/21 02:50>
[2021-06-27 03:22] LABS: Glucose, Whole Blood < 10 mg/dL (60-115)
== END 2021-06-27 01:17 | disposition expired | DRG 207 ==
LOC: HO.ED 08:30 → HO.EDOVER 11:41 → HO.IMC 14:52 → HO.ICU 06-15 03:45
PROVIDERS: Hospitalist; Internal Medicine Nephrology; Internal Medicine Pulmonary Disease; Physician Assistant; Physician Assistant Medical; Registered Nurse Community Health; Admitting Provider Internal Medicine; Emergency Provider Emergency Medicine Emergency Medical Services; PCP Physician Assistant; Visit Provider Internal Medicine Cardiovascular Disease
DX: U07.1 COVID-19 (principal); J12.82 Pneumonia due to coronavirus disease 2019; J80 Acute respiratory distress syndrome; N17.0 Acute kidney failure with tubular necrosis; Z68.41 Body mass index [BMI] 40.0-44.9, adult; G93.49 Other encephalopathy; K21.9 Gastro-esophageal reflux disease without esophagitis; I95.9 Hypotension, unspecified; I46.9 Cardiac arrest, cause unspecified; E66.01 Morbid (severe) obesity due to excess calories; E11.8 Type 2 diabetes mellitus with unspecified complications; I10 Essential (primary) hypertension; Z87.891 Personal history of nicotine dependence; Z79.899 Other long term (current) drug therapy
CPT/HCPCS: 36415; 36600; 71045; 71275; 80048; 80053; 81001; 82040; 82728; 82803; 82947; 83036; 83605; 83615; 83690; 83735; 83880; 84100; 84145; 84484; 85025; 85379; 85730; 86140; 86706; 87040; 87070; 87077; 87186; 87205; 87340; 87635; 90999; 93005; 94002; 94003; 94640; 94644; 94660; 94799; 99284; C1758; J0171; J0456; J0696; J1100; J1200; J1940; J2060; J2185; J2250; J2270; J2405; J3010; J3490; Q9967